=== PATIENT | male | born 1970 | race Caucasian/White ===

== ENCOUNTER 2018-11-23 15:59 | Outpatient (REF) | payer MEDICARE, SELFPAY ==
[2018-11-23 15:33] LABS: Anion Gap 11.2 mmol/L (3-11); BUN 14 mg/dL (7-18); CO2 27.8 mmol/L (21.0-32.0); CREATININE 1.04 mg/dL (0.70-1.30); Calculated LDL 80 mg/dL; Chloride 103 mmol/L (98-107); Cholesterol 158 mg/dL (50-200); Glucose 163 mg/dL (70-100); HDL Cholesterol 36 mg/dL (40-60); Potassium 4.3 mmol/L (3.5-5.1); Sodium 142 mmol/L (136-145); Triglyceride 212 mg/dL (30-150)
[2018-11-23 19:25] LABS: Hemoglobin A1C 7.1 % (4.5-6.2)
== END 2018-11-23 16:19 ==
LOC: NCHCN 15:59
PROVIDERS: PCP Nurse Practitioner Family; Visit Provider Nurse Practitioner Family
DX: E11.9 Type 2 diabetes mellitus without complications (principal); E78.2 Mixed hyperlipidemia
CPT/HCPCS: 80048; 80061; 83721; 83036

== ENCOUNTER 2021-12-08 11:36 | Inpatient (IN) | payer MEDICARE, MEDICAID, SELFPAY ==
[2021-12-08] VITALS (55 sets, daily range): BP systolic 122–154; BP diastolic 73–92; PULSE 92–118; RESP 17–28; TEMP 36.7; O2SAT 95–97
--- NOTE | 2021-12-08 11:46 | W.ED.GENAD ---
Discharge Plan Disposition Patient Disposition: [facility] INPATIENT Condition: Stable Discharge Details Chief Complaint: PsychEval Clinical Impression: Diabetic ketoacidosis associated with type 2 diabetes mellitus Admit Date/Time: 12/08/21 15:17 Admit Provider: Sylvester Newberry Attending Provider: Sylvester Newberry Primary Care Provider: Katy Brooks ED Provider: Farrukh Washington Medical Decision Making 51-year-old male brought by EMS after director of business development called for evaluation. He has had decades of auditory and visual hallucinations. He states he has been taking his Abilify and Valium. He told the director of business development the hallucinations became so bad he wished to have an evaluation. Upon arrival he does seem to be responding to internal stimuli. He is not a danger to himself or others. Medical screening examination including laboratory analysis performed patient given small aliquot of ativan. Patient is a diabetic and by report has not been taking his medications as he should. His glucose is 640 with anion gap of 23. BUN 37 and creatinine 2.3. Consistent with DKA. Patient IV access established, insulin and fluids initiated. Patient will require admission to the ICU. Lab Data Lab results reviewed: Yes I reviewed the patient's lab results. Labs: Laboratory Results - last 24 hr 12/08/21 12/08/21 12/08/21 12:50 12:50 12:50 WBC 13.81 H RBC 5.46 Hgb 17.2 Hct 47.5 MCV 87 MCH 31.5 MCHC 36.2 H RDW 11.6 L Plt Count 233 MPV 9.7 Immature Gran % 0.4 Neutrophils % 86.4 Lymphocytes % 3.5 Monocytes % 9.3 Eosinophils % 0.1 Basophils % 0.3 Nucleated RBC % 0.0 Absolute Neutrophils 11.93 H Absolute Lymphocytes 0.48 L Absolute Monocytes 1.28 H Absolute Eosinophils 0.01 Absolute Basophils 0.04 Sodium 125 L Potassium 5.3 H Chloride 91 L Carbon Dioxide 10.9 L Anion Gap 23.1 H BUN 37 H Creatinine 2.3 H Est GFR (CKD-EPI 2020) 33.75 Glucose 640 H* Calcium 9.1 Total Bilirubin 0.9 AST 16 ALT 20 Alkaline Phosphatase 100 Total Protein 8.5 H Albumin 3.9 TSH 0.78 Salicylates 4.1 Acetaminophen < 2 Ethyl Alcohol < 3.0 HPI General Mode of arrival: EMS. Date/Time Provider Initiated Documentation: 12/08/21 11:41. Limitations to Documentation: no limitations. Information obtained by: patient and EMS. History of Present Illness 51 year old M presents to the emergency department with the chief complaint of Anxiety, longstanding hallucinations, referred by director of business development, described as mild, and is localized to the head. Patient started experiencing this year(s) and it has been intermittent. No relieving factors improve symptom(s), No exacerbating factors reported . Patient notes other (No thoughts of harming himself or others). Patient did receive the following treatments prior to arrival, none Related Data Home Medications Medication Instructions Recorded Confirmed aripiprazole 30 mg tablet 1 tab PO DAILY 12/08/21 12/08/21 cariprazine 6 mg capsule (Vraylar) 1 cap PO HS 12/08/21 12/08/21 diazepam 5 mg tablet tab 12/08/21 12/08/21 Review of Systems Narrative: 6 systems reviewed and otherwise - PFSH All Active Problems (Updated 12/08/21 @ 19:01 by Farrukh Washington MD) DVT prophylaxis (Acute) Dehydration (Acute) Acute kidney injury (nontraumatic) (Acute) Diabetic ketoacidosis associated with type 2 diabetes mellitus (Acute) Schizophrenia (Chronic) Social History Smoking/Tobacco Use Status: Never Smoking risk assessment performed?: Yes Substance use type: does not use Additional Social history: pt not speaking at this time Exam Narrative Exam Narrative: GEN: awake, alert, Pleasant, interactive. HEAD: Normocephalic, atraumatic ENT: Mucous membranes moist, oropharynx unremarkable, External ear exam unremarkable EYES: PERRL, EOMI NECK: Full ROM, no [place], no menigismus CHEST/RESP: Nontender, clear to auscultation bilateral, no wheeze/rhonchi/rales CARDIOVASCULAR: RRR, no murmur, rub oj. 2+ Rad pulse bilateral ABDOMEN: Soft, nontender, no mass. +Bowel sounds EXT: Full ROM, no edema, no rash Neuro: Grossly normal neurologic exam, conversant, interactive. Psych: Speech fluent, affect flat
[2021-12-08] MEDS: LORazepam 1 MG TAB PO (12:03)
[2021-12-08 12:54] LABS: Abs Immature Grans 0.06 10^3/uL (0.0-0.06); Absolute Basophil Count 0.04 10^3/uL (0.0-0.2); Absolute Eosinophil Count 0.01 10^3/uL (0.0-0.7); Absolute Lymphocyte Count 0.48 10^3/uL (1.2-3.4); Absolute Neutrophil Count 11.93 10^3/uL (1.2-6.7); Basophils % 0.3; Eosinophils % 0.1; HCT 47.5 % (40.0-50.0); HGB 17.2 g/dL (13.5-17.5); Immature Grans % 0.4; Lymphocytes % 3.5; MCH 31.5 pg (27.0-33.0); MCHC 36.2 % (32.0-36.0); MCV 87 fL (80-95); MPV 9.7 fL (8.0-11.0); Monocytes % 9.3; Neutrophils % 86.4; Platelet Count 233 10^3/uL (130-400); RBC 5.46 10^6/uL (4.36-5.78); RDW 11.6 % (11.8-14.1); RDW-SD 37.1 fL; WBC 13.81 10^3/uL (4.4-10.8)
[2021-12-08 12:56] LABS: Absolute Monocyte Count 1.28 10^3/uL (0.1-0.8)
[2021-12-08 13:17] LABS: ALT 20 U/L (16-63); AST 16 U/L (15-37); Albumin 3.9 g/dL (3.4-5.0); Alkaline Phosphatase 100 U/L (46-116); Anion Gap 23.1 mmol/L (3-11); BUN 37 mg/dL (7-18); Bilirubin, Total 0.9 mg/dL (0.2-1.0); CO2 10.9 mmol/L (21.0-32.0); CREATININE 2.3 mg/dL (0.70-1.30); Calcium 9.1 mg/dL (8.5-10.1); Chloride 91 mmol/L (98-107); Estimated GFR 33.75 (mL/min/1.73m2); Potassium 5.3 mmol/L (3.5-5.1); Sodium 125 mmol/L (136-145); TSH (W/Ref FT4) 0.78 uIU/mL (0.36-3.74); Total Protein 8.5 g/dL (6.4-8.2)
[2021-12-08 13:19] LABS: ETHANOL BLOOD < 3.0 mg/dL (<10)
[2021-12-08 13:20] LABS: Glucose 640 mg/dL (74-106)
[2021-12-08 13:25] LABS: Acetaminophen < 2 ug/mL (10-30); Salicylate 4.1 mg/dL (<2.8)
--- NOTE | 2021-12-08 13:30 | RT.EKG_ITS ---
APPROVED REPORT Exam: Resting ECG Reason for Exam: hyperkalemia Patient Location: E HR:114 bpm ECG Measurements Heart Rate 114 AXIS SD 161 P 70 QRSd 92 QRS -65 QT 341 T 30 QTc 471 Conclusion Sinus tachycardia...rate> 99 Probable left atrial enlargement...P >50mS, <-0.10mV V1 Left anterior fascicular block...axis(240,-40), init forces inf
[2021-12-08] MEDS: Normal Saline 1,000 ML 999 ML IV (14:35)
[2021-12-08] MEDS: INSULIN REGULAR IN 0.9 % NACL 100 UNIT/100 ML BAG IV (14:52)
[2021-12-08] MEDS: Normal Saline 1,000 ML 1000 ML IV (15:25)
[2021-12-08 16:15] LABS: Source Nasal/Nares
[2021-12-08 16:20] LABS: Bilirubin Small (Negative); Blood Small (Negative); Clarity Clear (Clear); Glucose 500 mg/dL (Negative); Ketones >=160 mg/dL (Negative); Leukocyte Esterase Negative (Negative); Nitrite Negative (Negative); Specific Gravity 1.025 (1.005-1.025); Urobilinogen 0.2 EU/dL (Up TO 0.2); pH 5.5 (5-8)
[2021-12-08 16:26] LABS: Magnesium 2.2 mg/dL (1.8-2.4); PHOSPHORUS 4.5 mg/dL (2.6-4.7)
[2021-12-08 16:34] LABS: *AMPHETAMINES SCREEN URINE Negative (Negative); *BARBITURATES SCREEN URINE Negative (Negative); *BENZODIAZEPINES SCREEN URINE Positive (Negative); Cannabinoids THC Negative (Negative); Cocaine Screen,Urine Negative (Negative); METHADONE URINE SCREEN Negative (Negative); OPIATES URINE SCREEN Negative (Negative)
[2021-12-08 16:35] LABS: Tricyclic Antidepressants Negative (Negative)
[2021-12-08 16:36] LABS: Bacteria Negative HPF (Negative); C & S Indicated? No; Casts 10-20 Hyaline LPF (Negative); Crystals Negative HPF (Negative); Epithelial Cells Negative HPF (Negative); Mucus Negative (Negative); RBC 0-2 HPF (0-2); WBC Negative HPF (0-5)
[2021-12-08 16:47] LABS: COVID-19 PCR Negative (Negative)
--- NOTE | 2021-12-08 18:01 | W.PM.HP.N ---
Date of service: 12/08/21 Time of Service: 18:01 Assessment and Plan Assessment and plan (1) Diabetic ketoacidosis associated with type 2 diabetes mellitus: Status: Acute Assessment and plan: aggressive hydration, potassium replacement, iv insulin per Mchenry protocol; hourly monitoring of his glucose and monitor his BMP every 2 hours, monitor magnesium and phosphorus. check glycohemoglobin A1c in the a.m. Get more info from his PCP in the morning. No EKG or troponin were done. I will check these to be sure that he has not had ischemic event. Critical care time spent interviewing and examining the patient, reviewing studies, discussing case with patient's nurse and consulting physicians was 45 minutes (2) Acute kidney injury (nontraumatic): Status: Acute Assessment and plan: secondary to DKA, dehydration, monitor urine output and repeat serial BMP. If renal function not improving then check US (3) Dehydration: Status: Acute Assessment and plan: iv fluids as above (4) Schizophrenia: Status: Chronic Assessment and plan: resume his Abilify and his Vraylar; consider psychiatric consult (5) DVT prophylaxis: Status: Acute Assessment and plan: lovenox 40 mg SC daily History of Present Illness History of Present Illness Chief Complaint: DKA and psychosis Narrative: 51-year-old white male with history of schizophrenia who was treated with Abilify and Vraylar who was referred to emergency room via EMS after his room attendants called for evaluation. He has had decades of history of auditory visual hallucinations but his hallucinations were getting so bad that his room attendants felt he needed emergency evaluation. Upon arrival emergency department he was responding to internal stimulation. He was not presenting any danger to himself or to those around him. Medical screening was performed because the patient be given a small dose of Ativan. Laboratory evaluation showed him to be in DKA with a glucose of 640 anion gap of 23 along with acute kidney injury with a BUN of 37 creatinine 2.3. He was started on IV fluids and insulin drip is now admitted to the intensive care unit for treatment of DKA. I am unable to get a medical history out of the patient as he gives me that 1000 yard stare and stutters. Initially when I asked him if he takes insulin he said he did not know but that he later said he does not take any insulin for his diabetes mellitus. When asked if he takes any psychiatric medications for bipolar disorder or schizophrenia or depression he was unable to answer me. This started to say something that he will stutter that he will stop talking and just stare at me. He has his guitar on his bed with him he does admit that he likes to play songs but could not name any songs to me. My started do a review of systems he started tell me that [employer] has created a satellite system to invade people's minds and take over their mind control and that there are invisible robots trying to kill people. Review of Systems Unobtainable due to mental condition [facility] All Active Problems (Updated 12/08/21 @ 18:42 by Sylvester Newberry MD) DVT prophylaxis (Acute) Dehydration (Acute) Acute kidney injury (nontraumatic) (Acute) Diabetic ketoacidosis associated with type 2 diabetes mellitus (Acute) Schizophrenia (Chronic) Social History Smoking/Tobacco Use Status: Never Smoking risk assessment performed?: Yes Substance use type: does not use Additional Social history: pt not speaking at this time Meds Allergies and Home Medications Home Medications Medication Instructions Recorded Confirmed Type aripiprazole 30 mg tablet 1 tab PO DAILY 12/08/21 12/08/21 History cariprazine 6 mg capsule (Vraylar) 1 cap PO HS 12/08/21 12/08/21 History diazepam 5 mg tablet tab 12/08/21 12/08/21 History Exam Narrative Exam Narrative: Obese bearded longhaired white male with graying hair. He is sitting up in bed he appears to be in no acute respiratory distress he is alert but is not oriented to place time or circumstance. HEENT is remarkable for dry mucous membranes. Oropharynx is noninjected no exudate no thrush, teeth fair repair Neck supple, nontender, no JVD, normal carotid pulses Lungs: clear Heart: tachycardia, no murmur or rub Abdomen: obese, soft, nontender, normal bowel sound Extremities: patient has some abrasions over the 2nd to the 4th MCP joints, they reddened but no drainage; no other open wounds Neuro: he is alert and oriented only to his name; can not state where he is at or why he was sent here. he is delusional. no focal or motor deficits, no facial asymmetry and no dysarthric speech, full EOMI Results Labs Result diagrams: 12/08/21 12:50 12/08/21 12:50 Labs: Laboratory Results - last 24 hr 12/08/21 12/08/21 12/08/21 12:50 12:50 12:50 WBC 13.81 H RBC 5.46 Hgb 17.2 Hct 47.5 MCV 87 MCH 31.5 MCHC 36.2 H RDW 11.6 L Plt Count 233 MPV 9.7 Immature Gran % 0.4 Neutrophils % 86.4 Lymphocytes % 3.5 Monocytes % 9.3 Eosinophils % 0.1 Basophils % 0.3 Nucleated RBC % 0.0 Absolute Neutrophils 11.93 H Absolute Lymphocytes 0.48 L Absolute Monocytes 1.28 H Absolute Eosinophils 0.01 Absolute Basophils 0.04 Sodium 125 L Potassium 5.3 H Chloride 91 L Carbon Dioxide 10.9 L Anion Gap 23.1 H BUN 37 H Creatinine 2.3 H Est GFR (CKD-EPI 2020) 33.75 Glucose 640 H* Calcium 9.1 Phosphorus Magnesium Total Bilirubin 0.9 AST 16 ALT 20 Alkaline Phosphatase 100 Total Protein 8.5 H Albumin 3.9 TSH 0.78 Urine Color Urine Clarity Urine pH Ur Specific [place] Urine Protein Urine Ketones Urine Blood Urine Nitrite Urine Bilirubin Urine Urobilinogen Ur Leukocyte Esterase Urine RBC Urine WBC Ur Epithelial Cells Urine Crystals Urine Bacteria Urine Casts Urine Mucus Ur Culture Indicated? Urine Glucose Salicylates 4.1 Urine Opiates Screen Urine Methadone Screen Acetaminophen < 2 Ur Barbiturates Screen Ur Tricyclics Screen Ur Amphetamines Screen U Benzodiazepines Scrn Urine Cocaine Screen Ur THC Screen Ethyl Alcohol < 3.0 COVID-19 Source SARS-CoV-2 (PCR) 12/08/21 12/08/21 12/08/21 16:00 16:00 16:00 WBC RBC Hgb Hct MCV MCH MCHC RDW Plt Count MPV Immature Gran % Neutrophils % Lymphocytes % Monocytes % Eosinophils % Basophils % Nucleated RBC % Absolute Neutrophils Absolute Lymphocytes Absolute Monocytes Absolute Eosinophils Absolute Basophils Sodium Potassium Chloride Carbon Dioxide Anion Gap BUN Creatinine Est GFR (CKD-EPI 2020) Glucose Calcium Phosphorus 4.5 Magnesium 2.2 Total Bilirubin AST ALT Alkaline Phosphatase Total Protein Albumin TSH Urine Color Yellow Urine Clarity Clear Urine pH 5.5 Ur Specific [place] 1.025 Urine Protein Trace H Urine Ketones >=160 H Urine Blood Small H Urine Nitrite Negative Urine Bilirubin Small H Urine Urobilinogen 0.2 Ur Leukocyte Esterase Negative Urine RBC 0-2 Urine WBC Negative Ur Epithelial Cells Negative Urine Crystals Negative Urine Bacteria Negative Urine Casts 10-20 Hyaline Urine Mucus Negative Ur Culture Indicated? No Urine Glucose 500 H Salicylates Urine Opiates Screen Negative Urine Methadone Screen Negative Acetaminophen Ur Barbiturates Screen Negative Ur Tricyclics Screen Negative Ur Amphetamines Screen Negative U Benzodiazepines Scrn Positive A Urine Cocaine Screen Negative Ur THC Screen Negative Ethyl Alcohol COVID-19 Source SARS-CoV-2 (PCR) 12/08/21 16:00 WBC RBC Hgb Hct MCV MCH MCHC RDW Plt Count MPV Immature Gran % Neutrophils % Lymphocytes % Monocytes % Eosinophils % Basophils % Nucleated RBC % Absolute Neutrophils Absolute Lymphocytes Absolute Monocytes Absolute Eosinophils Absolute Basophils Sodium Potassium Chloride Carbon Dioxide Anion Gap BUN Creatinine Est GFR (CKD-EPI 2020) Glucose Calcium Phosphorus Magnesium Total Bilirubin AST ALT Alkaline Phosphatase Total Protein Albumin TSH Urine Color Urine Clarity Urine pH Ur Specific [place] Urine Protein Urine Ketones Urine Blood Urine Nitrite Urine Bilirubin Urine Urobilinogen Ur Leukocyte Esterase Urine RBC Urine WBC Ur Epithelial Cells Urine Crystals Urine Bacteria Urine Casts Urine Mucus Ur Culture Indicated? Urine Glucose Salicylates Urine Opiates Screen Urine Methadone Screen Acetaminophen Ur Barbiturates Screen Ur Tricyclics Screen Ur Amphetamines Screen U Benzodiazepines Scrn Urine Cocaine Screen Ur THC Screen Ethyl Alcohol COVID-19 Source Nasal/Nares SARS-CoV-2 (PCR) Negative Last Vital Signs Temp 36.7 C 12/08/21 17:16 Pulse 114 H 12/08/21 17:16 Pulse Ox 97 12/08/21 17:16
[2021-12-08 18:31] LABS: Anion Gap 18.5 mmol/L (3-11); BUN 32 mg/dL (7-18); CO2 15.5 mmol/L (21.0-32.0); CREATININE 1.8 mg/dL (0.70-1.30); Calcium 8.3 mg/dL (8.5-10.1); Chloride 98 mmol/L (98-107); Estimated GFR 45.29 (mL/min/1.73m2); Glucose 407 mg/dL (74-106); Potassium 4.4 mmol/L (3.5-5.1); Sodium 132 mmol/L (136-145); Troponin I < 50 ng/L (<or=60)
[2021-12-08] MEDS: POTASSIUM CHLORIDE/0.9% NACL 1,000 ML 100 MEQ IV (18:37)
[2021-12-08] MEDS: Enoxaparin 40 MG/0.4 ML SYR SC (19:41)
[2021-12-08 20:17] LABS: Anion Gap 16.5 mmol/L (3-11); BUN 33 mg/dL (7-18); CO2 17.5 mmol/L (21.0-32.0); CREATININE 1.8 mg/dL (0.70-1.30); Calcium 8.4 mg/dL (8.5-10.1); Chloride 99 mmol/L (98-107); Estimated GFR 45.29 (mL/min/1.73m2); Glucose 341 mg/dL (74-106); Potassium 4.3 mmol/L (3.5-5.1); Sodium 133 mmol/L (136-145)
--- NOTE | 2021-12-08 20:50 | NUR.NOTE ---
pt states im not taking htat because im not bipolar when asked about having cariprazing brought in from homeNursing Note:
[2021-12-08 22:04] LABS: Anion Gap 16.2 mmol/L (3-11); BUN 34 mg/dL (7-18); CO2 15.8 mmol/L (21.0-32.0); CREATININE 1.7 mg/dL (0.70-1.30); Calcium 8.3 mg/dL (8.5-10.1); Chloride 101 mmol/L (98-107); Estimated GFR 48.51 (mL/min/1.73m2); Glucose 324 mg/dL (74-106); Potassium 4.1 mmol/L (3.5-5.1); Sodium 133 mmol/L (136-145)
[2021-12-08] MEDS: Bacitracin 1 PACKET TP (22:27)
[2021-12-08] MEDS: POTASSIUM CHLORIDE 20 MEQ/100 ML BAG 50 MEQ IVPB (22:50)
[2021-12-09] VITALS (26 sets, daily range): BP systolic 108–148; BP diastolic 59–96; PULSE 65–107; RESP 13–28; TEMP 36.2–36.8; O2SAT 95–98
[2021-12-09 00:31] LABS: Anion Gap 12.8 mmol/L (3-11); BUN 32 mg/dL (7-18); CO2 20.2 mmol/L (21.0-32.0); CREATININE 1.6 mg/dL (0.70-1.30); Calcium 8.3 mg/dL (8.5-10.1); Chloride 102 mmol/L (98-107); Estimated GFR 52.17 (mL/min/1.73m2); Glucose 175 mg/dL (74-106); Sodium 135 mmol/L (136-145)
[2021-12-09 02:46] LABS: Anion Gap 13.8 mmol/L (3-11); BUN 31 mg/dL (7-18); CO2 18.2 mmol/L (21.0-32.0); CREATININE 1.4 mg/dL (0.70-1.30); Calcium 8.2 mg/dL (8.5-10.1); Chloride 102 mmol/L (98-107); Estimated GFR 61.23 (mL/min/1.73m2); Glucose 223 mg/dL (74-106); Potassium 3.8 mmol/L (3.5-5.1); Sodium 134 mmol/L (136-145)
[2021-12-09] MEDS: POTASSIUM CHLORIDE 20 MEQ/100 ML BAG 50 MEQ IVPB (04:20)
[2021-12-09 07:10] LABS: Abs Immature Grans 0.01 10^3/uL (0.0-0.06); Absolute Basophil Count 0.03 10^3/uL (0.0-0.2); Absolute Eosinophil Count 0.11 10^3/uL (0.0-0.7); Absolute Lymphocyte Count 2.17 10^3/uL (1.2-3.4); Absolute Neutrophil Count 4.41 10^3/uL (1.2-6.7); Basophils % 0.4; Eosinophils % 1.4; HCT 39.3 % (40.0-50.0); Immature Grans % 0.1; Lymphocytes % 28.4; MCH 31.6 pg (27.0-33.0); MCHC 36.4 % (32.0-36.0); MCV 87 fL (80-95); Monocytes % 11.8; Neutrophils % 57.9; Platelet Count 208 10^3/uL (130-400); RBC 4.53 10^6/uL (4.36-5.78); RDW 11.4 % (11.8-14.1); RDW-SD 36.1 fL; WBC 7.63 10^3/uL (4.4-10.8)
[2021-12-09 07:19] LABS: HGB 14.3 g/dL (13.5-17.5)
[2021-12-09 07:26] LABS: Hemoglobin A1C 11.8 % (<5.7)
[2021-12-09 07:31] LABS: ALT 16 U/L (16-63); AST 15 U/L (15-37); Albumin 3.1 g/dL (3.4-5.0); Alkaline Phosphatase 76 U/L (46-116); Anion Gap 10.3 mmol/L (3-11); BUN 27 mg/dL (7-18); Bilirubin, Total 0.4 mg/dL (0.2-1.0); CO2 22.7 mmol/L (21.0-32.0); CREATININE 1.5 mg/dL (0.70-1.30); Calcium 8.5 mg/dL (8.5-10.1); Chloride 107 mmol/L (98-107); Estimated GFR 56.37 (mL/min/1.73m2); Glucose 74 mg/dL (74-106); PHOSPHORUS 3.5 mg/dL (2.6-4.7); Potassium 3.7 mmol/L (3.5-5.1); Sodium 140 mmol/L (136-145); Total Protein 6.6 g/dL (6.4-8.2)
[2021-12-09] MEDS: Insulin Glargine 300 UNITS/3 ML PEN 15 UNITS SC (09:48)
--- NOTE | 2021-12-09 10:06 | PGE_ITS ---
Date of Service Date of service: 12/09/21 Time of Service: 08:20 Assessment and Plan Assessment and plan (1) Diabetic ketoacidosis associated with type 2 diabetes mellitus: Status: Acute Assessment and plan: The patient states he is not on insulin at home. Based on his extrapolated insulin requirement based on the insulin gtt, he received 15 units of lantus this am. Will recheck his labs at 11 am to ensure his AG has not reexpanded given that insulin drip had to be shut off earlier. Will keep in ICU for now. Continue IVF. (2) Acute kidney injury (nontraumatic): Status: Acute Assessment and plan: due to DKA and dehydration. Continue IVF and monitor UOP. (3) Dehydration: Status: Acute Assessment and plan: In setting of DKA. As above. (4) Schizophrenia: Status: Chronic Assessment and plan: The patient refuses Abilify and vraylar, stating he does not take these at home. Per our pharmacy review, he, in fact, had these prescriptions picked up on 11/11/21. Deusional on admission. Mental health is consulted. (5) DVT prophylaxis: Status: Acute Assessment and plan: lovenox 40 mg SC daily (6) Discharge planning issues: Status: Acute Assessment and plan: Keep in ICU. DNR/DNI. Total Critical Care Time 35 minutes. Subjective Subjective Interval history since last seen: Erec (as he called himself) states that he is feeling ok. He reports pain in his atlas which is chronic. Denies headache, dizziness, chest pain, shortness of breath, nausea. Insulin drip was shut off at 8 am this am (before long acting insulin given) due to low BG. The patient did tolerate his breakfast. He states he is not on insulin at home. Refused his psych meds - states he does not think he takes them at home. Otherwise, cooperative. Exam Narrative Exam Narrative: General: Pleasant obese male who is slightly slow to respond to questions, A&Ox3, AND HEENT: EOMI, MMM Heart: RRR, no m/r/g Lungs: Diminished breath sounds at B bases Abdomen: soft, nontender, nondistended Extremities: no edema BLEs. Objective Last Vital Signs Temp 36.2 C L 12/09/21 07:30 Pulse 101 H 12/09/21 09:00 Resp 19 12/09/21 09:00 BP 126/78 12/09/21 09:00 Pulse Ox 95 12/08/21 17:30 Laboratory Results - last 24 hr 12/08/21 12/08/21 12/08/21 12:50 12:50 12:50 WBC 13.81 H RBC 5.46 Hgb 17.2 Hct 47.5 MCV 87 MCH 31.5 MCHC 36.2 H RDW 11.6 L Plt Count 233 MPV 9.7 Immature Gran % 0.4 Neutrophils % 86.4 Lymphocytes % 3.5 Monocytes % 9.3 Eosinophils % 0.1 Basophils % 0.3 Nucleated RBC % 0.0 Absolute Neutrophils 11.93 H Absolute Lymphocytes 0.48 L Absolute Monocytes 1.28 H Absolute Eosinophils 0.01 Absolute Basophils 0.04 Sodium 125 L Potassium 5.3 H Chloride 91 L Carbon Dioxide 10.9 L Anion Gap 23.1 H BUN 37 H Creatinine 2.3 H Est GFR (CKD-EPI 2020) 33.75 Glucose 640 H* Hemoglobin A1c Calcium 9.1 Phosphorus Magnesium Total Bilirubin 0.9 AST 16 ALT 20 Alkaline Phosphatase 100 Troponin I Total Protein 8.5 H Albumin 3.9 TSH 0.78 Urine Color Urine Clarity Urine pH Ur Specific [place] Urine Protein Urine Ketones Urine Blood Urine Nitrite Urine Bilirubin Urine Urobilinogen Ur Leukocyte Esterase Urine RBC Urine WBC Ur Epithelial Cells Urine Crystals Urine Bacteria Urine Casts Urine Mucus Ur Culture Indicated? Urine Glucose Salicylates 4.1 Urine Opiates Screen Urine Methadone Screen Acetaminophen < 2 Ur Barbiturates Screen Ur Tricyclics Screen Ur Amphetamines Screen U Benzodiazepines Scrn Urine Cocaine Screen Ur THC Screen Ethyl Alcohol < 3.0 COVID-19 Source SARS-CoV-2 (PCR) 12/08/21 12/08/21 12/08/21 16:00 16:00 16:00 WBC RBC Hgb Hct MCV MCH MCHC RDW Plt Count MPV Immature Gran % Neutrophils % Lymphocytes % Monocytes % Eosinophils % Basophils % Nucleated RBC % Absolute Neutrophils Absolute Lymphocytes Absolute Monocytes Absolute Eosinophils Absolute Basophils Sodium Potassium Chloride Carbon Dioxide Anion Gap BUN Creatinine Est GFR (CKD-EPI 2020) Glucose Hemoglobin A1c Calcium Phosphorus 4.5 Magnesium 2.2 Total Bilirubin AST ALT Alkaline Phosphatase Troponin I Total Protein Albumin TSH Urine Color Yellow Urine Clarity Clear Urine pH 5.5 Ur Specific [place] 1.025 Urine Protein Trace H Urine Ketones >=160 H Urine Blood Small H Urine Nitrite Negative Urine Bilirubin Small H Urine Urobilinogen 0.2 Ur Leukocyte Esterase Negative Urine RBC 0-2 Urine WBC Negative Ur Epithelial Cells Negative Urine Crystals Negative Urine Bacteria Negative Urine Casts 10-20 Hyaline Urine Mucus Negative Ur Culture Indicated? No Urine Glucose 500 H Salicylates Urine Opiates Screen Negative Urine Methadone Screen Negative Acetaminophen Ur Barbiturates Screen Negative Ur Tricyclics Screen Negative Ur Amphetamines Screen Negative U Benzodiazepines Scrn Positive A Urine Cocaine Screen Negative Ur THC Screen Negative Ethyl Alcohol COVID-19 Source SARS-CoV-2 (PCR) 12/08/21 12/08/21 12/08/21 16:00 17:35 19:42 WBC RBC Hgb Hct MCV MCH MCHC RDW Plt Count MPV Immature Gran % Neutrophils % Lymphocytes % Monocytes % Eosinophils % Basophils % Nucleated RBC % Absolute Neutrophils Absolute Lymphocytes Absolute Monocytes Absolute Eosinophils Absolute Basophils Sodium 132 L 133 L Potassium 4.4 4.3 Chloride 98 99 Carbon Dioxide 15.5 L 17.5 L Anion Gap 18.5 H 16.5 H BUN 32 H 33 H Creatinine 1.8 H 1.8 H Est GFR (CKD-EPI 2020) 45.29 45.29 Glucose 407 H 341 H Hemoglobin A1c Calcium 8.3 L 8.4 L Phosphorus Magnesium Total Bilirubin AST ALT Alkaline Phosphatase Troponin I < 50 Total Protein Albumin TSH Urine Color Urine Clarity Urine pH Ur Specific [place] Urine Protein Urine Ketones Urine Blood Urine Nitrite Urine Bilirubin Urine Urobilinogen Ur Leukocyte Esterase Urine RBC Urine WBC Ur Epithelial Cells Urine Crystals Urine Bacteria Urine Casts Urine Mucus Ur Culture Indicated? Urine Glucose Salicylates Urine Opiates Screen Urine Methadone Screen Acetaminophen Ur Barbiturates Screen Ur Tricyclics Screen Ur Amphetamines Screen U Benzodiazepines Scrn Urine Cocaine Screen Ur THC Screen Ethyl Alcohol COVID-19 Source Nasal/Nares SARS-CoV-2 (PCR) Negative 12/08/21 12/09/21 12/09/21 21:42 00:07 02:30 WBC RBC Hgb Hct MCV MCH MCHC RDW Plt Count MPV Immature Gran % Neutrophils % Lymphocytes % Monocytes % Eosinophils % Basophils % Nucleated RBC % Absolute Neutrophils Absolute Lymphocytes Absolute Monocytes Absolute Eosinophils Absolute Basophils Sodium 133 L 135 L 134 L Potassium 4.1 4.0 3.8 Chloride 101 102 102 Carbon Dioxide 15.8 L 20.2 L 18.2 L Anion Gap 16.2 H 12.8 H 13.8 H BUN 34 H 32 H 31 H Creatinine 1.7 H 1.6 H 1.4 H Est GFR (CKD-EPI 2020) 48.51 52.17 61.23 Glucose 324 H 175 H 223 H Hemoglobin A1c Calcium 8.3 L 8.3 L 8.2 L Phosphorus Magnesium Total Bilirubin AST ALT Alkaline Phosphatase Troponin I Total Protein Albumin TSH Urine Color Urine Clarity Urine pH Ur Specific [place] Urine Protein Urine Ketones Urine Blood Urine Nitrite Urine Bilirubin Urine Urobilinogen Ur Leukocyte Esterase Urine RBC Urine WBC Ur Epithelial Cells Urine Crystals Urine Bacteria Urine Casts Urine Mucus Ur Culture Indicated? Urine Glucose Salicylates Urine Opiates Screen Urine Methadone Screen Acetaminophen Ur Barbiturates Screen Ur Tricyclics Screen Ur Amphetamines Screen U Benzodiazepines Scrn Urine Cocaine Screen Ur THC Screen Ethyl Alcohol COVID-19 Source SARS-CoV-2 (PCR) 12/09/21 12/09/21 12/09/21 07:00 07:00 07:00 WBC 7.63 RBC 4.53 Hgb 14.3 D Hct 39.3 L MCV 87 MCH 31.6 MCHC 36.4 H RDW 11.4 L Plt Count 208 MPV 9.0 Immature Gran % 0.1 Neutrophils % 57.9 Lymphocytes % 28.4 Monocytes % 11.8 Eosinophils % 1.4 Basophils % 0.4 Nucleated RBC % 0.0 Absolute Neutrophils 4.41 Absolute Lymphocytes 2.17 Absolute Monocytes 0.90 H Absolute Eosinophils 0.11 Absolute Basophils 0.03 Sodium 140 Potassium 3.7 Chloride 107 Carbon Dioxide 22.7 Anion Gap 10.3 BUN 27 H Creatinine 1.5 H Est GFR (CKD-EPI 2020) 56.37 Glucose 74 Hemoglobin A1c Calcium 8.5 Phosphorus 3.5 Magnesium 2.0 Total Bilirubin 0.4 AST 15 ALT 16 Alkaline Phosphatase 76 Troponin I Total Protein 6.6 Albumin 3.1 L TSH Urine Color Urine Clarity Urine pH Ur Specific [place] Urine Protein Urine Ketones Urine Blood Urine Nitrite Urine Bilirubin Urine Urobilinogen Ur Leukocyte Esterase Urine RBC Urine WBC Ur Epithelial Cells Urine Crystals Urine Bacteria Urine Casts Urine Mucus Ur Culture Indicated? Urine Glucose Salicylates Urine Opiates Screen Urine Methadone Screen Acetaminophen Ur Barbiturates Screen Ur Tricyclics Screen Ur Amphetamines Screen U Benzodiazepines Scrn Urine Cocaine Screen Ur THC Screen Ethyl Alcohol COVID-19 Source SARS-CoV-2 (PCR) 12/09/21 07:00 WBC RBC Hgb Hct MCV MCH MCHC RDW Plt Count MPV Immature Gran % Neutrophils % Lymphocytes % Monocytes % Eosinophils % Basophils % Nucleated RBC % Absolute Neutrophils Absolute Lymphocytes Absolute Monocytes Absolute Eosinophils Absolute Basophils Sodium Potassium Chloride Carbon Dioxide Anion Gap BUN Creatinine Est GFR (CKD-EPI 2020) Glucose Hemoglobin A1c 11.8 H Calcium Phosphorus Magnesium Total Bilirubin AST ALT Alkaline Phosphatase Troponin I Total Protein Albumin TSH Urine Color Urine Clarity Urine pH Ur Specific [place] Urine Protein Urine Ketones Urine Blood Urine Nitrite Urine Bilirubin Urine Urobilinogen Ur Leukocyte Esterase Urine RBC Urine WBC Ur Epithelial Cells Urine Crystals Urine Bacteria Urine Casts Urine Mucus Ur Culture Indicated? Urine Glucose Salicylates Urine Opiates Screen Urine Methadone Screen Acetaminophen Ur Barbiturates Screen Ur Tricyclics Screen Ur Amphetamines Screen U Benzodiazepines Scrn Urine Cocaine Screen Ur THC Screen Ethyl Alcohol COVID-19 Source SARS-CoV-2 (PCR) Multi-Disciplinary Checklist Lines/Tubes CENTRAL LINE: no ARTERIAL LINE: no LARA: no ENDOTRACHEAL TUBE: no ICU Maintenance GLUCOSE 140-180mg/dL: no, NUTRITION AT GOAL: yes PRESSURE ULCER: no RESTRAINTS: no ANTIBIOTICS(if yes, consider Stewardship): No Social Issues FAMILY UPDATED: no, Reason/Intervention: No family listed in the computer PT/OT: no, 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
[2021-12-09 11:14] LABS: BE (Venous) -10 mmol/L (-2-3); HCO3 (Venous) 17 mmol/L (23-28); O2 Sat (Venous) 94 %; TCO2 (Venous) 16 mmol/L (24-29); pCO2 (Venous) 40 mmHg (41-51); pH (Venous) 7.24 (7.31-7.41); pO2 (Venous) 77 mmHg
[2021-12-09 11:28] LABS: Anion Gap 11.3 mmol/L (3-11); BUN 30 mg/dL (7-18); CO2 19.7 mmol/L (21.0-32.0); CREATININE 1.4 mg/dL (0.70-1.30); Calcium 8.3 mg/dL (8.5-10.1); Chloride 104 mmol/L (98-107); Estimated GFR 61.23 (mL/min/1.73m2); Glucose 407 mg/dL (74-106); Magnesium 1.8 mg/dL (1.8-2.4); Potassium 4.6 mmol/L (3.5-5.1); Sodium 135 mmol/L (136-145)
[2021-12-09] MEDS: Insulin Aspart 300 UNITS/3 ML PEN SC ×4 (11:54→22:37)
[2021-12-09] MEDS: Bacitracin 1 PACKET TP ×2 (12:29→19:38)
[2021-12-09] MEDS: Lactated Ringers 1,000 ML 150 ML IV ×2 (12:32→19:10)
[2021-12-09 15:33] LABS: BE (Venous) -6 mmol/L (-2-3); HCO3 (Venous) 20 mmol/L (23-28); O2 Sat (Venous) 62 %; TCO2 (Venous) 18 mmol/L (24-29); pCO2 (Venous) 37 mmHg (41-51); pH (Venous) 7.34 (7.31-7.41); pO2 (Venous) 31 mmHg
[2021-12-09 15:47] LABS: Anion Gap 9.6 mmol/L (3-11); BUN 30 mg/dL (7-18); CO2 21.4 mmol/L (21.0-32.0); CREATININE 1.3 mg/dL (0.70-1.30); Calcium 8.6 mg/dL (8.5-10.1); Chloride 106 mmol/L (98-107); Estimated GFR 66.93 (mL/min/1.73m2); Glucose 222 mg/dL (74-106); Potassium 4.5 mmol/L (3.5-5.1); Sodium 137 mmol/L (136-145)
[2021-12-09] MEDS: Insulin Glargine 300 UNITS/3 ML PEN SC (16:28)
--- NOTE | 2021-12-09 16:37 | NUR.NOTE ---
Nursing Note: This nurse went into patient's room to give him his SC insulin. Patient was staring at the wall and would not allow this nurse to administer the insulin; he put the index finger up in the air (as if to say wait one minute). A few minutes later he stated he had the power to remove the bad parts from the medicine and diseases. Then he allowed this nurse to administer the insulin medications. Dr. Valles was notified. When patient was asked if he took his Abilify and his Vraylar, patient stated he did not take them because of the commercials on TV that advertizes, the bad side effects these medications can cause.
[2021-12-09 20:40] LABS: Anion Gap 10.4 mmol/L (3-11); BUN 28 mg/dL (7-18); CO2 22.6 mmol/L (21.0-32.0); CREATININE 1.3 mg/dL (0.70-1.30); Calcium 8.6 mg/dL (8.5-10.1); Chloride 103 mmol/L (98-107); Estimated GFR 66.93 (mL/min/1.73m2); Glucose 332 mg/dL (74-106); Magnesium 1.8 mg/dL (1.8-2.4); Potassium 4.4 mmol/L (3.5-5.1); Sodium 136 mmol/L (136-145)
[2021-12-09] MEDS: LORazepam 20 MG/10 ML VIAL IVP (23:58)
[2021-12-10] VITALS (98 sets, daily range): BP systolic 95–164; BP diastolic 51–98; PULSE 84–115; RESP 14–33; TEMP 36.2–36.7; O2SAT 50–100
[2021-12-10] MEDS: Lactated Ringers 1,000 ML 150 ML IV (01:36)
[2021-12-10 06:31] LABS: Abs Immature Grans 0.02 10^3/uL (0.0-0.06); Absolute Basophil Count 0.04 10^3/uL (0.0-0.2); Absolute Eosinophil Count 0.02 10^3/uL (0.0-0.7); Absolute Lymphocyte Count 0.91 10^3/uL (1.2-3.4); Absolute Monocyte Count 0.62 10^3/uL (0.1-0.8); Absolute Neutrophil Count 5.81 10^3/uL (1.2-6.7); Basophils % 0.5; Eosinophils % 0.3; HCT 38.7 % (40.0-50.0); HGB 13.8 g/dL (13.5-17.5); Immature Grans % 0.3; Lymphocytes % 12.3; MCH 31.2 pg (27.0-33.0); MCHC 35.7 % (32.0-36.0); MCV 88 fL (80-95); MPV 10.2 fL (8.0-11.0); Monocytes % 8.4; Neutrophils % 78.2; Platelet Count 199 10^3/uL (130-400); RBC 4.42 10^6/uL (4.36-5.78); RDW 11.4 % (11.8-14.1); RDW-SD 36.9 fL; WBC 7.42 10^3/uL (4.4-10.8)
[2021-12-10 06:42] LABS: Anion Gap 7.9 mmol/L (3-11); BUN 20 mg/dL (7-18); CO2 25.1 mmol/L (21.0-32.0); CREATININE 1.2 mg/dL (0.70-1.30); Chloride 104 mmol/L (98-107); Estimated GFR 73.67 (mL/min/1.73m2); Glucose 291 mg/dL (74-106); Magnesium 1.6 mg/dL (1.8-2.4); Potassium 4.6 mmol/L (3.5-5.1); Sodium 137 mmol/L (136-145)
[2021-12-10] MEDS: Insulin Glargine 300 UNITS/3 ML PEN 20 UNITS SC (07:38)
[2021-12-10] MEDS: Insulin Aspart 300 UNITS/3 ML PEN SC ×6 (07:42→17:47)
[2021-12-10] MEDS: MAGNESIUM SULFATE 2 GM/50 ML BAG IVPB (07:50)
[2021-12-10] MEDS: Bacitracin 1 PACKET TP (07:50)
[2021-12-10] MEDS: Normal Saline Flush 10 ML SYR IVP (07:51)
--- NOTE | 2021-12-10 09:07 | PDOC.CMIN ---
- If Service Date Differs Date of service: 12/10/21 Time of Service: 09:07 Care Management Initial Assess REASON FOR HOSPITALIZATION:: DKA PAST MEDICAL HISTORY/PAST SURGICAL HISTORY:: All Active Problems (Updated 12/08/21 @ 18:42 by Sylvester Newberry MD). DVT prophylaxis (Acute). Dehydration (Acute). Acute kidney injury (nontraumatic) (Acute). Diabetic ketoacidosis associated with type 2 diabetes mellitus (Acute). Schizophrenia (Chronic) PREVIOUS FUNCTIONAL STATUS/SOCIAL/FAMILY SUPPORTS:: Isiah lives alone in [facility]. He is a [employer] client and Lindsay Lo is his business case analyst. Isiah, who likes to be called Erec, was unable/unwilling to provide additional details to CM. CURRENT FUNCTIONAL STATUS:: Isiah was lying in bed when CM met with him. He was pleasant but very delusional at the time of the visit. He informed CM that police now have darts that they shoot into people to subdue them so that they can handcuff them. Then, he stated, they bring them to the president who will execute them. Attempts to further the conversation were unsuccessful. Isiah was admitted with DKA with a blood sugar of 640. He stated that he has never taken Insulin. CM contacted his PCP office and was able to confirm that fact. The last time he was seen in the office was in November,. His A1-C was 7.1 and is now 11.8. He had Metformin 500mg bid prescribed in 2019 but it does not appear he has been taking it. CM spoke with Leydi Cardenas RN for [employer], who did not have a lot of information about Isiah. There is concern that Isiah may not be able to administer his own insulin and monitor his blood sugars safely. He lives alone and does not appear to have a great deal of support. Leydi indicated that she would discuss the situation with other [employer] staff and would plan to connect with CM again tomorrow. ADVANCE DIRECTIVES:: none on file Has patient been provided with info about the portal/API?: Yes Did the patient sign up for the portal?: No CODE STATUS:: DNR/DNI INSURANCE COVERAGE / FINANCIAL ISSUES:: Medicare CURRENT HOME/COMMUNITY SERVICES/EQUIPMENT:: Isiah is a [employer] client PRIMARY CARE PHYSICIAN:: Katy Brooks POTENTIAL DISCHARGE NEEDS:: follow up with PCP and plan of care PATIENT/FAMILY EDUCATION NEEDS:: Review of dichsarge instructions, limitations, diet, follow up plan, Ask Me Three ANTICIPATED BARRIERS TO DISCHARGE:: placement where he can have Insulin administered as needed with good glucose control TRANSPORTATION:: via private vehicle with friends/family PLAN:: Isiah's discharge plan is unclear at this time. He has a home to return to but has new insulin requirements to manage his diabetes. It is doubtful that he will be able to manage this independently. If he returns home he will need new home health services for nursing to monitor his blood sugars and administer insulin while reinforcng teaching initiated at [facility]. CM will continue to support Isiah and assess for discharge needs and available community supports.
[2021-12-10] MEDS: Insulin Glargine 300 UNITS/3 ML PEN 30 UNITS SC (09:23)
--- NOTE | 2021-12-10 10:15 | PGE_ITS ---
Date of Service Date of service: 12/10/21 Time of Service: 09:05 Assessment and Plan Assessment and plan (1) Diabetic ketoacidosis associated with type 2 diabetes mellitus: Status: Resolved Assessment and plan: Uptitrate long acting insulin. Off of insulin gtt since yesterday afternoon. I have concerns as to this patient's ability to administer his own insulin. We will touch base with mental health to see what kind of supervision he has in the community. DM education consulted. (2) Acute kidney injury (nontraumatic): Status: Resolved Assessment and plan: D/c IVF. (3) Dehydration: Status: Resolved Assessment and plan: D/c IVF (4) Schizophrenia: Status: Chronic Assessment and plan: The patient refuses Abilify and vraylar, stating he does not take these at home. Per our pharmacy review, he, in fact, had these prescriptions picked up on 11/11/21. Deusional on admission. Mental health is consulted. (5) DVT prophylaxis: Status: Acute Assessment and plan: lovenox 40 mg SC daily (6) Discharge planning issues: Status: Acute Assessment and plan: DNR/DNI. Transfer out of ICU. Subjective Subjective Interval history since last seen: Mr Curran states that his neck is bothering him but that otherwise he is not having any pain. Denies dizzines, chest discomfort, shortness of breath, nausea. Got agitated last night and received 2 mg of IV ativan, after which he required 10 L of O2 by facemask and was snoring loudly. He is on RA now and fully awake. When I ask him if he would be willing to learn how to give himself insulin, he answers will someone check my blood sugar again? He is not giving me a clear answer as to whether or not he will try. He continues to refuse his psychiatric medications. Exam Narrative Exam Narrative: General: Pleasant obese male who is slightly slow to respond to quest ions, A&Ox3, NAD HEENT: EOMI, MMM Heart: RRR, no m/r/g Lungs: Diminished breath sounds at B bases Abdomen: soft, nontender, nondistended Extremities: no edema BLEs. Objective Last Vital Signs Temp 36.2 C L 12/10/21 07:45 Pulse 94 H 12/10/21 08:02 Resp 19 12/10/21 08:52 BP 129/77 12/10/21 08:02 Pulse Ox 91 L 12/10/21 08:30 Laboratory Results - last 24 hr 12/09/21 12/09/21 12/09/21 11:10 11:10 15:22 WBC RBC Hgb Hct MCV MCH MCHC RDW Plt Count MPV Immature Gran % Neutrophils % Lymphocytes % Monocytes % Eosinophils % Basophils % Nucleated RBC % Absolute Neutrophils Absolute Lymphocytes Absolute Monocytes Absolute Eosinophils Absolute Basophils VBG pH 7.24 L VBG pCO2 40 L VBG pO2 77 VBG HCO3 17 L VBG Total CO2 16 L VBG O2 Saturation 94 VBG Base Excess -10 L Sodium 135 L 137 Potassium 4.6 4.5 Chloride 104 106 Carbon Dioxide 19.7 L 21.4 Anion Gap 11.3 H 9.6 BUN 30 H 30 H Creatinine 1.4 H 1.3 Est GFR (CKD-EPI 2020) 61.23 66.93 Glucose 407 H 222 H Calcium 8.3 L 8.6 Magnesium 1.8 2.0 12/09/21 12/09/21 12/10/21 15:22 20:15 05:15 WBC RBC Hgb Hct MCV MCH MCHC RDW Plt Count MPV Immature Gran % Neutrophils % Lymphocytes % Monocytes % Eosinophils % Basophils % Nucleated RBC % Absolute Neutrophils Absolute Lymphocytes Absolute Monocytes Absolute Eosinophils Absolute Basophils VBG pH 7.34 VBG pCO2 37 L VBG pO2 31 VBG HCO3 20 L VBG Total CO2 18 L VBG O2 Saturation 62 VBG Base Excess -6 L Sodium 136 137 Potassium 4.4 4.6 Chloride 103 104 Carbon Dioxide 22.6 25.1 Anion Gap 10.4 7.9 BUN 28 H 20 H Creatinine 1.3 1.2 Est GFR (CKD-EPI 2020) 66.93 73.67 Glucose 332 H 291 H Calcium 8.6 8.0 L Magnesium 1.8 1.6 L 12/10/21 05:15 WBC 7.42 RBC 4.42 Hgb 13.8 Hct 38.7 L MCV 88 MCH 31.2 MCHC 35.7 RDW 11.4 L Plt Count 199 MPV 10.2 Immature Gran % 0.3 Neutrophils % 78.2 Lymphocytes % 12.3 Monocytes % 8.4 Eosinophils % 0.3 Basophils % 0.5 Nucleated RBC % 0.0 Absolute Neutrophils 5.81 Absolute Lymphocytes 0.91 L Absolute Monocytes 0.62 Absolute Eosinophils 0.02 Absolute Basophils 0.04 VBG pH VBG pCO2 VBG pO2 VBG HCO3 VBG Total CO2 VBG O2 Saturation VBG Base Excess Sodium Potassium Chloride Carbon Dioxide Anion Gap BUN Creatinine Est GFR (CKD-EPI 2020) Glucose Calcium Magnesium
--- NOTE | 2021-12-10 10:40 | NUR.NOTE ---
After assisting patient with shower and back to room, this sql report writer called hospitalist to see if he needed to be reconnected to telemetry heart monitor due to anticipation of being a med surg status. said at this time the patient DOES NOT need telemetry, so he was not put back on monitoring system. RN aware Nursing Note:
--- NOTE | 2021-12-10 16:02 | NUR.NOTE ---
Pt is talking to me about the evil which needs to be killed out. There is evil robots using computers, while the patient is talking to me he is stuttering and having issues finding the right words. He visibly becomes frustrated with this word searching and emits a big sigh. He explained that the evil inside him is causing him to forget what hes saying. Patient also explains he hears thoughts pop into his head. Even though they aren't his thoughts, they give him ideas. Nursing Note:
[2021-12-10] MEDS: ARIPiprazole 15 MG TAB 30 MG PO (23:30)
[2021-12-11] MEDS: Insulin Aspart 300 UNITS/3 ML PEN SC ×6 (00:05→22:12)
[2021-12-11] MEDS: LORazepam 20 MG/10 ML VIAL IVP (01:09)
[2021-12-11 06:11] VITALS: BP 144/84; PULSE 87
[2021-12-11] MEDS: Insulin Glargine 300 UNITS/3 ML PEN 30 UNITS SC (08:35)
[2021-12-11 08:41] VITALS: BP 153/83; PULSE 82; O2SAT 94
[2021-12-11 08:49] VITALS: TEMP 36.7
--- NOTE | 2021-12-11 09:05 | W.PM.PROGNOT ---
Date of Service Date of service: 12/11/21 Time of Service: 09:05 Assessment and Plan Assessment and plan (1) Diabetic ketoacidosis associated with type 2 diabetes mellitus: Status: Resolved Assessment and plan: FBG 219 this am. Uptitrate long acting insulin to 35 units. I have concerns as to this patient's ability to administer his own insulin given his delusional state. Mental health is consulted. DM education consulted. (2) Acute kidney injury (nontraumatic): Status: Resolved Assessment and plan: Refused labs this am - unable to assess renal function. (3) Dehydration: Status: Resolved Assessment and plan: as above (4) Schizophrenia: Status: Chronic Assessment and plan: The patient took Abilify last night but continues to refuse vraylar, stating he does not take these at home. Per our pharmacy review, he, in fact, had these prescriptions picked up on 11/11/21. Delusional on admission. Mental health is consulted. (5) DVT prophylaxis: Status: Acute Assessment and plan: lovenox 40 mg SC daily (6) Discharge planning issues: Status: Acute Assessment and plan: DNR/DNI. Disposition per mental health. Subjective Subjective Interval history since last seen: Erec states that he is really busy helping people right now and would really rather not talk to me. Last night he did require 1 mg of ativan - no behaviors reported since. Per nursing, he has been having hallucinations (appears to be both auditory and visual). Exam Narrative Exam Narrative: General: Pleasant obese male who is refusing a physical exam (very politely) HEENT: EOMI Heart: not auscultated (Patient refused) Lungs: nonlabored breathing Abdomen: obese Extremities: no visible edema BLEs. Objective Last Vital Signs Temp 36.7 C 12/11/21 08:49 Pulse 82 12/11/21 08:41 Resp 21 12/10/21 09:50 BP 153/83 H 12/11/21 08:41 Pulse Ox 94 12/11/21 08:41
--- NOTE | 2021-12-11 09:18 | PDOC.CMPRO ---
- If Service Date Differs Date of service: 12/11/21 Time of Service: 09:18 Care Management Progress Note S/O: Milind has been agitated much of the day today. He ran out of the ICU down the adames at one point shouting that we lost the war. He was able to be redirected back to his room and was medicated with IM Zyprexa. This morning Lindsay, Milind's CONVENTION SERVICES DIRECTOR social work case manager, visited with him. She found him to be more delusional than at baseline and is seeking voluntary inpatient psychiatric care for him. At this point, Milind is agreeable. One potential barrier is the need for close glucose monitoring and insulin administration which may not be available in all psychiatric facilities.. A: Isiah is a 51 year old man admitted on 12/08/21 in DKA P:Isiah's discharge plan is unclear at this time. He has a home to return to but has new insulin requirements to manage his diabetes. It is doubtful that he will be able to manage this independently. If he returns home he will need new home health services for nursing to monitor his blood sugars and administer insulin while reinforcing teaching initiated at [facility]. will continue to support Isiah and assess for discharge needs and available community supports.
[2021-12-11] MEDS: Insulin Glargine 300 UNITS/3 ML PEN SC (09:19)
[2021-12-11] MEDS: OLANZapine 10 MG VIAL 5 MG IM (10:33)
[2021-12-11] MEDS: Water,Injection,Sterile 10 ML VIAL (10:34)
--- NOTE | 2021-12-11 11:10 | NUR.NOTE ---
Mental health from LOAN EXPEDITOR in room at 11:00 on 2021. Nursing Note:
--- NOTE | 2021-12-11 12:32 | NUR.NOTE ---
At approximately 0940 on December 11, 2021. This patient came out of his room concerned about the adapter to his portable massage machine that he has with him. At this time he became agitated and saying things like, I'm gonna . and I'm . This sports book writer and RN reassured patient that he was very well alive and safe. At this time security was called for safety measures as patient started to run out of his room and onto the medical floor. Once security showed up, the patient started yelling, We did it. We won the [employer] war. Multiple times this happened. At this time the patient had a pen in his hand and I asked if I could borrow it so I could write some notes (for safety to get it away from patient) Once security arrived, the patient seemed to calm down and we were able to escort him back into his room. Once back in his room, with security on standby, patient still seemed agitated and concerned. This sports book writer asked if there was anyone I could call that would be willing to go get his adapter for his portable massage gun that he is worried about having and he responded with We're gonna . After patient sat on bed, I asked him if he wanted a fresh cup of coffee until he could think of anyone for me to call to get this adapter and he accepted the offer. Utensil removed from room at this time for safety measures. This was the last of the interactions I had with this patient regarding this incident. Nursing Note:
[2021-12-11] MEDS: ARIPiprazole 15 MG TAB 30 MG PO (12:59)
[2021-12-11] MEDS: Bacitracin 1 PACKET TP (13:05)
[2021-12-11 13:14] LABS: Abs Immature Grans 0.02 10^3/uL (0.0-0.06); Absolute Basophil Count 0.03 10^3/uL (0.0-0.2); Absolute Eosinophil Count 0.05 10^3/uL (0.0-0.7); Absolute Lymphocyte Count 1.04 10^3/uL (1.2-3.4); Absolute Monocyte Count 0.51 10^3/uL (0.1-0.8); Absolute Neutrophil Count 3.78 10^3/uL (1.2-6.7); Basophils % 0.6; Eosinophils % 0.9; HCT 38.1 % (40.0-50.0); Immature Grans % 0.4; Lymphocytes % 19.2; MCH 31.5 pg (27.0-33.0); MCHC 36.7 % (32.0-36.0); MCV 86 fL (80-95); MPV 9.8 fL (8.0-11.0); Monocytes % 9.4; Neutrophils % 69.5; Platelet Count 215 10^3/uL (130-400); RBC 4.44 10^6/uL (4.36-5.78); RDW 11.1 % (11.8-14.1); RDW-SD 34.7 fL; WBC 5.43 10^3/uL (4.4-10.8)
[2021-12-11 13:44] LABS: Anion Gap 7.4 mmol/L (3-11); BUN 16 mg/dL (7-18); CO2 28.6 mmol/L (21.0-32.0); CREATININE 0.9 mg/dL (0.70-1.30); Calcium 8.5 mg/dL (8.5-10.1); Chloride 104 mmol/L (98-107); Estimated GFR 104.05 (mL/min/1.73m2); Glucose 306 mg/dL (74-106); Magnesium 1.8 mg/dL (1.8-2.4); Sodium 140 mmol/L (136-145)
[2021-12-11 13:48] LABS: Potassium 3.6 mmol/L (3.5-5.1)
--- NOTE | 2021-12-11 13:53 | W.INDIABCONS ---
Date of service: 12/11/21 Time of Service: 13:53 Diabetes Inpatient Consult Reason for Visit: DM DESCRIPTION/ASSESSMENT: 51 year old male admitted with dehydration, CAMILO and DKA (BS: 640 mg/dl). PMH: schizophrenia, obesity. Most recent A1C: 11.8% indicates poor glycemic management. Per report, has not been taking his medications,insulin as prescribed. Following diabetic meal plan with adequate intake. Meeting macronutrient needs. Blood sugar now controlled by SS aspart and 35 units lantus HS. Awaiting mental health evaluation as hallucinating and hearing voices . INTERVENTION: Diabetes education not appropriate at this time PLAN: Will be available to provide diabetes self management education when/if Dwayne becomes more receptive to education Time Spent in Nutritional Counseling and Treatment: 0
--- NOTE | 2021-12-11 16:02 | PHA.REVIEW ---
Pharmacy Admission Review - Admission Clinical Review (Last Reviewed 12/08/21 @ 18:32 by Sylvester Newberry MD) Discharge planning issues (Acute) DVT prophylaxis (Acute) No Known Allergies Allergy (Unverified 12/08/21 22:25) Resuscitation Status DNR/DNI Height 5 ft 9 in Weight 105.4 kg - Renal Dosing Renal Dosing: BUN 16 mg/dL (7-18) 12/11/21 12:58 Creatinine 0.9 mg/dL (0.70-1.30) 12/11/21 12:58 Medications needing adjustments: Reviewed (Crcl ~117.4 mL/min current meds okay) - Anticoagulation Anticoagulation: Hgb 14.0 g/dL (13.5-17.5) 12/11/21 12:58 Hct 38.1 % (40.0-50.0) L 12/11/21 12:58 Plt Count 215 10^3/uL (130-400) 12/11/21 12:58 Creatinine 0.9 mg/dL (0.70-1.30) 12/11/21 12:58 DVT Prophylaxis: Reviewed Medications: Enoxaparin Therapeutic Anticoagulation: N/A - Opiate Usage Evaluate Pain Scale/Pains Meds: N/A - Relevant Labs Sodium 140 mmol/L (136-145) 12/11/21 12:58 Potassium 3.6 mmol/L (3.5-5.1) D 12/11/21 12:58 Chloride 104 mmol/L (98-107) 12/11/21 12:58 Phosphorus 3.5 mg/dL (2.6-4.7) 12/09/21 07:00 Magnesium 1.8 mg/dL (1.8-2.4) 12/11/21 12:58 Electrolytes, C-Reactive P, ESR: Reviewed - DM Control DM Control: Glucose 306 mg/dL (74-106) H 12/11/21 12:58 Hemoglobin A1c 11.8 % (<5.7) H 12/09/21 07:00 Finger Stick Blood Glucose 280 Finger Stick Blood Glucose 280 Finger Stick Blood Glucose 280 Finger Stick Blood Glucose 219 Finger Stick Blood Glucose 219 Finger Stick Blood Glucose 219 Insulin Dosing: Reviewed (Scheduled insulin glargine and aspart ordered in addition to sliding scale aspart.) - Heart Failure/SD Heart Failure/SD: Troponin I < 50 ng/L (<or=60) 12/08/21 17:35 EF%, SALENA's, B-Blockers, Diuretics: Reviewed - BP Control BP Control: Blood Pressure 153/83 Blood Pressure 144/84 If elevated: Reviewed (BP has been up and down some since admission; has been elevated so far today. No BP meds ordered or on home med list.) - Qtc Review If Elevated: Reviewed (QTc 471 on admission, pt has aripiprazole and cariprazine ordered) - IV to PO Switch IV Medications: Reviewed - Home Meds Home Med List reviewed: Reviewed (Per nursing and progress note, pt was staing he did not take abilify and cariprazine, per external med history and pharmacy both meds have been filled recently.) - Current meds Current Medication Order Review: Reviewed - Comments Comments/Follow Ups: Watch BP, BG, labs and for med changes.
[2021-12-11 16:04] VITALS: BP 157/89; PULSE 101; O2SAT 93
[2021-12-11 16:14] VITALS: TEMP 36.6
--- NOTE | 2021-12-11 16:25 | NUR.NOTE ---
Nursing Note: Clint in the day patient ran out of his room and was saying we lost the war....holy fuck....we are all going to . Later several times he was happier and saying we won the war. Occasionally after we won the war he would be labile and would dry and be happy. At other times he would talk about how we are all going to live forever. At other times when patient was alone in his room alone with door closed, this nurse could hear him talking in room.
[2021-12-12 04:00] VITALS: BP 148/88; RESP 21; TEMP 36.4; O2SAT 93
[2021-12-12] MEDS: LORazepam 0.5 MG TAB PO (07:40)
[2021-12-12] MEDS: ARIPiprazole 15 MG TAB 30 MG PO (07:40)
[2021-12-12] MEDS: Insulin Aspart 300 UNITS/3 ML PEN SC ×6 (08:06→22:06)
[2021-12-12] MEDS: Insulin Glargine 300 UNITS/3 ML PEN 40 UNITS SC (08:35)
--- NOTE | 2021-12-12 09:37 | CMPROGNOTE_ITS ---
- If Service Date Differs Date of service: 12/12/21 Time of Service: 09:37 Care Management Progress Note 0920: CM called [facility] [employer] Juancarlos, to relay information regarding admission and disposition planning. Juancarlos reported he had not been notified of Isiah's admission to [facility]. Juancarlos requested this manual writer to ask SPEECH CORRECTION CONSULTANT Point to call [facility] Admissions line to officially notify of Isiah's status at [facility]. CM provided case review and concern for patient self management of insulin, recognizing that stabilizing mental status would take precedent in treatment. Juancarlos stated it was likely Isiah would need to go to a more medical based psychiatric unit such as [place] or [facility]. 0930 CM called [facility] and spoke with Jareth Montoya SPEECH CORRECTION CONSULTANT CM, who advised she was lacking demographic information to call [facility] admissions which delayed notification. She reported she had access to the information and would notify [facility]. CM inquired as to referral status, Lindsay reported only sending her note (not available in patient chart) and medication list requested from [facility] so all facilities would require updated clinicals. CM offered to send clinicals, Lindsay stated SPEECH CORRECTION CONSULTANT point person would arrive at [facility] after [facility] morning meeting and collect clinical information then. 0945 CM recieved call from Sylvester, [facility] Crisis and SPEECH CORRECTION CONSULTANT point requesting patient information and location. Sylvester stated he would bring Lindsay's note to add to paper chart and see patient. When CM offered, Sylvester stated updated clinicals could be faxed to [facility], [place], and [facility]. Sylvester reported he would collect packet while at [facility]. 0950 Updated referrals faxed. 1020 referral provided to Sylvester, while at [facility] meeting with Isiah. [facility] note placed on chart. 1445 Nurse Ernestina reported patient was seeking contact with his rn case manager Lindsay to coordinate mail and house keys. CM provided contact information. 1545 Sylvester reported no bed updates at this time. SUNI notified
--- NOTE | 2021-12-12 09:37 | PDOC.CMPRO ---
- If Service Date Differs Date of service: 12/12/21 Time of Service: 09:37 Care Management Progress Note 0920: CM called [facility] [employer] Juancarlos, to relay information regarding admission and disposition planning. Juancarlos reported he had not been notified of Isiah's admission to [facility]. Juancarlos requested this selling underwriter to ask MANAGER STRATEGY & ACCOUNT Point to call [facility] Admissions line to officially notify of Isiah's status at [facility]. CM provided case review and concern for patient self management of insulin, recognizing that stabilizing mental status would take precedent in treatment. Juancarlos stated it was likely Isiah would need to go to a more medical based psychiatric unit such as [facility] or [facility]. 0930 CM called [facility] and spoke with Jareth Montoya MANAGER STRATEGY & ACCOUNT CM, who advised she was lacking demographic information to call [facility] admissions which delayed notification. She reported she had access to the information and would notify [facility]. CM inquired as to referral status, Lindsay reported only sending her note (not available in patient chart) and medication list requested from [facility] so all facilities would require updated clinicals. CM offered to send clinicals, Lindsay stated MANAGER STRATEGY & ACCOUNT point person would arrive at [facility] after [facility] morning meeting and collect clinical information then. 0945 CM recieved call from Sylvester, [facility] Crisis and MANAGER STRATEGY [employer] ACCOUNT point requesting patient information and location. Sylvester stated he would bring Lindsay's note to add to paper chart and see patient. When CM offered, Sylvester stated updated clinicals could be faxed to [facility], [facility], and [facility]. Sylvester reported he would collect packet while at [facility]. 0950 Updated referrals faxed. 1020 referral provided to Sylvester, while at [facility] meeting with Isiah. [facility] note placed on chart. 1445 Nurse Ernestina reported patient was seeking contact with his transplant case manager Lindsay to coordinate mail and house keys. CM provided contact information. 1545 Sylvester reported no bed updates at this time. SUNI notified
--- NOTE | 2021-12-12 10:24 | NUR.NOTE ---
Nursing Note: [facility] is in room talking to patient at this time.
[2021-12-12] MEDS: diazePAM 5 MG TAB PO (12:15)
[2021-12-12] MEDS: Lidocaine 5% Patch 1 PATCH TP (12:15)
[2021-12-12 15:56] LABS: Anion Gap 10.5 mmol/L (3-11); BUN 16 mg/dL (7-18); CO2 27.5 mmol/L (21.0-32.0); CREATININE 1.1 mg/dL (0.70-1.30); Calcium 9.3 mg/dL (8.5-10.1); Chloride 101 mmol/L (98-107); Estimated GFR 81.78 (mL/min/1.73m2); Glucose 273 mg/dL (74-106); Magnesium 1.7 mg/dL (1.8-2.4); Potassium 3.5 mmol/L (3.5-5.1); Sodium 139 mmol/L (136-145)
--- NOTE | 2021-12-12 17:20 | W.PM.PROGNOT ---
Date of Service Date of service: 12/12/21 Time of Service: 17:21 Assessment and Plan Assessment and plan (1) Diabetic ketoacidosis associated with type 2 diabetes mellitus: Status: Resolved Assessment and plan: FBG 194 this am. Long acting insulin increased to 40 units qam. I have concerns as to this patient's ability to administer his own insulin given his delusional state. Mental health is consulted. DM education consulted. (2) Acute kidney injury (nontraumatic): Status: Resolved Assessment and plan: Cr stable (3) Dehydration: Status: Resolved Assessment and plan: as above (4) Schizophrenia: Status: Chronic Assessment and plan: Not consistently compliant with medications here - refusing them most of the time. Per our pharmacy review, he, in fact, picked up both vraylar and abilify prescriptions on 11/11/21. Delusional on admission. Mental health is consulted. (5) DVT prophylaxis: Status: Acute Assessment and plan: lovenox 40 mg SC daily (6) Discharge planning issues: Status: Acute Assessment and plan: DNR/DNI. Disposition per mental health. Voluntary psychiatric placement is being procured. Subjective Subjective Interval history since last seen: Erec states that his neck is bothering him, but otherwise he is feeling well. Denies dizziness, chest pain, shortness of breath, nausea. Exam Narrative Exam Narrative: General: Pleasant obese male, A&Ox3, NAD HEENT: EOMI, MMM Heart: RRR, no m/r/g Lungs: CTAB Abdomen: soft, nontender, nondistended Extremities: no visible edema BLEs, R hand abrasions on knuckles healing well. Objective Last Vital Signs Temp 36.4 C L 12/12/21 04:00 Pulse 101 H 12/11/21 16:04 Resp 21 12/12/21 04:00 BP 148/88 H 12/12/21 04:00 Pulse Ox 93 12/12/21 04:00 Laboratory Results - last 24 hr 12/12/21 14:51 Sodium 139 Potassium 3.5 Chloride 101 Carbon Dioxide 27.5 Anion Gap 10.5 BUN 16 Creatinine 1.1 Est GFR (CKD-EPI 2020) 81.78 Glucose 273 H Calcium 9.3 Magnesium 1.7 L
[2021-12-12] MEDS: Enoxaparin 40 MG/0.4 ML SYR SC (17:27)
[2021-12-13 04:00] VITALS: BP 136/42; PULSE 101; TEMP 36.7; O2SAT 98
[2021-12-13] MEDS: ARIPiprazole 15 MG TAB 30 MG PO (08:46)
[2021-12-13] MEDS: Magnesium Oxide 400 MG TAB PO (08:47)
--- NOTE | 2021-12-13 09:50 | PDOC.CMPRO ---
- If Service Date Differs Date of service: 12/13/21 Time of Service: 09:50 Care Management Progress Note S/O: Milind has been refusing all of his medications and nursing care today, including having bloodwork drawn. He asked to speak to Lindsay who is his [employer] machine adjuster leader case trim, but she was not working. He did speak to Sylvester Townsend who was covering for [employer] and Sylvester was able to get him to take some of his medication, including his Insulin. Per Sylvester, there are no beds available at [facility], [facility], or [place], and [facility] is reviewing his referral. Milind remains voluntary at this time. A: Isiah is a 51 year old man admitted on 12/08/21 in DKA P:Milind's discharge plan is unclear at this time. He is awaiting voluntary psychiatric hospitalization for stabilization of his mental health issues. Due to his complex medical needs, he would likely need to go to a facility that has strong medical support. After discharge, Milind has a home to return to but has new insulin requirements to manage his diabetes. It is doubtful that he will be able to manage this independently. If he returns home he will need new home health services for nursing to monitor his blood sugars and administer insulin while reinforcing teaching initiated at [facility]. will continue to support Isiah and assess for discharge needs and available community supports.
[2021-12-13] MEDS: Insulin Glargine 300 UNITS/3 ML PEN 40 UNITS SC (10:36)
--- NOTE | 2021-12-13 10:46 | NUR.NOTE ---
Nursing Note: Patient is refusing treatments, MD aware. Case management contacted and [facility] counselor (Sylvester) will be in around 11:30.
[2021-12-13] MEDS: Insulin Aspart 300 UNITS/3 ML PEN SC ×2 (11:37→17:32)
[2021-12-13] MEDS: Lidocaine 5% Patch 1 PATCH TP (11:44)
[2021-12-13 11:47] VITALS: BP 156/100; PULSE 98; O2SAT 94
[2021-12-13] MEDS: diazePAM 5 MG TAB PO (11:53)
[2021-12-13 12:08] VITALS: RESP 20; TEMP 36.8
--- NOTE | 2021-12-13 14:34 | W.PM.PROGNOT ---
Date of Service Date of service: 12/13/21 Time of Service: 14:34 Assessment and Plan Assessment and plan (1) Diabetic ketoacidosis associated with type 2 diabetes mellitus: Status: Resolved Assessment and plan: We do not have an FBG this morning - the patient refused. Continue lantus 40 units daily, scheduled prandial + SSI insulin. I have concerns as to this patient's ability to administer his own insulin given his delusional state. Mental health is consulted and seeking placement. DM education consulted. (2) Acute kidney injury (nontraumatic): Status: Resolved Assessment and plan: Cr stable Patient refused blood draw today. (3) Dehydration: Status: Resolved Assessment and plan: as above (4) Schizophrenia: Status: Chronic Assessment and plan: Not compliant with medications here - refusing them most of the time. Per our pharmacy review, he, in fact, picked up both vraylar and abilify prescriptions on 11/11/21. Delusional on admission. Mental health is consulted. (5) DVT prophylaxis: Status: Acute Assessment and plan: lovenox 40 mg SC daily (6) Discharge planning issues: Status: Acute Assessment and plan: DNR/DNI. Disposition per mental health. Voluntary psychiatric placement is being procured. Subjective Subjective Interval history since last seen: Mr Bina is even more tangential in his speech today. His answers do not make sense to me. He refused his insulin this morning, but did agree to take it eventually. He states that his whole body shook and that it was painful (he then proceeded to make himself shake). He stated that he could, in fact, stop it and did. Exam Narrative Exam Narrative: General: Pleasant obese male, having word salad, tangential speech, delusional thinking. HEENT: EOMI, MMM Heart: RRR, no m/r/g Lungs: CTAB Abdomen: soft, nontender, nondistended Extremities: no visible edema BLEs, R hand abrasions on knuckles healing well. Objective Last Vital Signs Temp 36.8 C 12/13/21 12:08 Pulse 98 H 12/13/21 11:47 Resp 20 12/13/21 12:08 BP 156/100 H 12/13/21 11:47 Pulse Ox 94 12/13/21 11:47 Laboratory Results - last 24 hr 12/12/21 14:51 Sodium 139 Potassium 3.5 Chloride 101 Carbon Dioxide 27.5 Anion Gap 10.5 BUN 16 Creatinine 1.1 Est GFR (CKD-EPI 2020) 81.78 Glucose 273 H Calcium 9.3 Magnesium 1.7 L
[2021-12-13 16:59] VITALS: BP 152/92; PULSE 85; O2SAT 92
[2021-12-13 17:00] VITALS: RESP 20; TEMP 36.2
[2021-12-13] MEDS: Enoxaparin 40 MG/0.4 ML SYR SC (17:32)
[2021-12-14 01:14] VITALS: BP 153/99; PULSE 102
[2021-12-14 08:45] VITALS: BP 143/86; PULSE 100; RESP 18; TEMP 36.3; O2SAT 95
--- NOTE | 2021-12-14 08:49 | NUR.NOTE ---
Nursing Note: pt transferred from ICU, report taken from VISHNU Monte.
[2021-12-14 11:45] VITALS: BP 141/99; PULSE 118; RESP 18; TEMP 36.5; O2SAT 97
[2021-12-14] MEDS: diazePAM 5 MG TAB PO (11:54)
[2021-12-14 14:56] VITALS: BP 142/94; PULSE 107; RESP 18; TEMP 37.2; O2SAT 95
--- NOTE | 2021-12-14 15:52 | W.PM.PROGNOT ---
Date of Service Date of service: 12/14/21 Time of Service: 15:52 Assessment and Plan Assessment and plan (1) Diabetic ketoacidosis associated with type 2 diabetes mellitus: Status: Resolved Assessment and plan: He refused fingerstick glucose this AM but did allow the AC stick before lunch; reading was 213. Continue lantus 40 units daily, scheduled prandial + SSI insulin. I have concerns as to this patient's ability to administer his own insulin given his delusional state. Mental health is consulted and seeking placement. DM education consulted. (2) Acute kidney injury (nontraumatic): Status: Resolved Assessment and plan: Creatinine normalized. Now refuses lab draws. (3) Dehydration: Status: Resolved Assessment and plan: as above (4) Schizophrenia: Status: Chronic Assessment and plan: Not compliant with medications here - refusing them most of the time. Per our pharmacy review, he, in fact, picked up both vraylar and abilify prescriptions on 11/11/21. Delusional on admission. Mental health is consulted. (5) DVT prophylaxis: Status: Acute Assessment and plan: lovenox 40 mg SC daily (6) Discharge planning issues: Status: Acute Assessment and plan: DNR/DNI. Disposition per mental health. Voluntary psychiatric placement is being procured. Subjective Subjective Patient reports: no new complaints, tolerating a regular diet and afebrile; denies nausea, vomiting or shortness of breath Interval history since last seen: Pt is walking in his room. Mentions numbers that were his latest results; unclear if he is referring to his weight because he mentions the scales, but he gives a number that would be likely a temperature. Exam Narrative Exam Narrative: General: Pleasant obese male, tangential speech. HEENT: EOMI, sclera clear. Heart: RRR, no murmur Lungs: CTAB Abdomen: soft, nontender, nondistended Extremities: no visible edema BLEs, R hand abrasions on knuckles healing well. No calf tenderness. Objective Last Vital Signs Temp 37.2 C 12/14/21 14:56 Pulse 107 H 12/14/21 14:56 Resp 18 12/14/21 14:56 BP 142/94 H 12/14/21 14:56 Pulse Ox 95 12/14/21 14:56 Laboratory Results - last 24 hr 12/13/21 07:46 Sodium Cancelled Potassium Cancelled Chloride Cancelled Carbon Dioxide Cancelled Anion Gap Cancelled BUN Cancelled Creatinine Cancelled Est GFR (CKD-EPI 2020) Cancelled Glucose Cancelled Calcium Cancelled Magnesium Cancelled
[2021-12-14] MEDS: Insulin Aspart 300 UNITS/3 ML PEN SC ×2 (17:03)
[2021-12-14] MEDS: Insulin Glargine 300 UNITS/3 ML PEN 40 UNITS SC (18:33)
[2021-12-14 23:12] VITALS: BP 155/70; PULSE 95; RESP 16; TEMP 36.8; O2SAT 98
[2021-12-15 06:05] VITALS: BP 119/77; PULSE 82; RESP 18; TEMP 36.7; O2SAT 94
[2021-12-15 07:30] VITALS: BP 117/72; PULSE 86; RESP 20; TEMP 36; O2SAT 97
[2021-12-15] MEDS: Magnesium Oxide 400 MG TAB PO (09:02)
[2021-12-15] MEDS: Insulin Aspart 300 UNITS/3 ML PEN SC ×4 (09:11→21:11)
[2021-12-15 11:45] VITALS: BP 114/73; PULSE 88; RESP 19; TEMP 36.8; O2SAT 94
[2021-12-15] MEDS: metFORMIN 500 MG TAB PO ×2 (13:54→16:50)
[2021-12-15] MEDS: Empaglifozin 10 MG TAB PO (13:54)
[2021-12-15] MEDS: diazePAM 5 MG TAB PO (13:56)
--- NOTE | 2021-12-15 14:20 | W.PM.PROGNOT ---
Date of Service Date of service: 12/15/21 Time of Service: 14:21 Assessment and Plan Assessment and plan (1) Diabetic ketoacidosis associated with type 2 diabetes mellitus: Status: Resolved Assessment and plan: S/P DKA. Intermittently refusing insulin. I have significant concerns regarding his ability to monitor his glucose and administer insulin as well as his compliance. D/C insulin and begin Jardiance and metformin; titrate as necessary. Oupt support in diet education and adherence as best as can be provided and willingly accepted. (2) Acute kidney injury (nontraumatic): Status: Resolved Assessment and plan: Creatinine normalized. Now refuses lab draws. (3) Dehydration: Status: Resolved Assessment and plan: as above (4) Schizophrenia: Status: Chronic Assessment and plan: Not compliant with medications here - refusing them most of the time. Per our pharmacy review, he, in fact, picked up both vraylar and abilify prescriptions on 11/11/21. Delusional on admission. Mental health is consulted. (5) DVT prophylaxis: Status: Acute Assessment and plan: lovenox 40 mg SC daily (6) Discharge planning issues: Status: Acute Assessment and plan: DNR/DNI. Voluntary psychiatric placement is being procured. Subjective Subjective Patient reports: no new complaints, feels better, shortness of breath and afebrile; denies nausea or vomiting Interval history since last seen: He has not refused insulin this AM. He did refuse Vraylar, Mg and Aripiprazole earlier in the AM but then accepted the first doses of newly prescribed metformin and Jardiance. Exam Narrative Exam Narrative: General: Pleasant obese male. Normal speech pattern today. Carried on a conversation regarding where he grew up and his musical interest. Lying in bed. HEENT: EOMI, sclera clear. Heart: RRR, no murmur Lungs: CTAB Abdomen: soft, nontender, nondistended Extremities: no visible edema BLEs, R hand abrasions on knuckles healing well. No calf tenderness. Objective Last Vital Signs Temp 36.8 C 12/15/21 11:45 Pulse 88 12/15/21 11:45 Resp 19 12/15/21 11:45 BP 114/73 12/15/21 11:45 Pulse Ox 94 12/15/21 11:45
[2021-12-15 15:00] VITALS: BP 109/67; PULSE 97; RESP 19; TEMP 37.1; O2SAT 95
[2021-12-15 19:00] VITALS: BP 106/70; PULSE 92; RESP 23; TEMP 36.5; O2SAT 92
[2021-12-15] MEDS: Bacitracin 1 PACKET TP (21:23)
[2021-12-15 23:23] VITALS: BP 131/82; PULSE 81; RESP 16; TEMP 36.8; O2SAT 94
[2021-12-16 03:47] VITALS: BP 127/83; PULSE 88; RESP 16; TEMP 36; O2SAT 96
[2021-12-16 07:58] VITALS: BP 123/82; PULSE 82; RESP 17; TEMP 36.7; O2SAT 94
[2021-12-16] MEDS: Bacitracin 1 PACKET TP ×2 (08:20→18:42)
[2021-12-16] MEDS: Magnesium Oxide 400 MG TAB PO (08:54)
[2021-12-16] MEDS: Empaglifozin 10 MG TAB PO (08:54)
[2021-12-16] MEDS: metFORMIN 500 MG TAB PO ×2 (08:55→17:58)
--- NOTE | 2021-12-16 09:46 | PDOC.CMPRO ---
- If Service Date Differs Date of service: 12/16/21 Time of Service: 09:46 Care Management Progress Note S/O:Milind was sitting up in a chair when CM met with him. He was polite and appeared less delusional that he was previously. He has been taking all of his diabetes medications but still refuses his psychiatric medication at times. Milind will likely go to the Care Bed tomorrow for a while before returning to his own home. A:Milind is a 51 year old man admitted on 12/08/21 with DKA P:Anticipate Milind will transfer to the care bed tomorrow. He has been compliant with taking his medication and his blood sugars are under control. The insulin has been discontinued and he was started on oral hypoglycemic agents and is responding well to the regimen. CM will continue to support Milind and assess for ongoing discharge needs.
[2021-12-16] MEDS: Lidocaine 5% Patch 1 PATCH TP (10:22)
[2021-12-16 11:47] VITALS: BP 151/96; PULSE 89; RESP 18; TEMP 36.7; O2SAT 97
[2021-12-16] MEDS: diazePAM 5 MG TAB PO (12:34)
--- NOTE | 2021-12-16 17:08 | W.PM.PROGNOT ---
Date of Service Date of service: 12/16/21 Time of Service: 17:20 Assessment and Plan Assessment and plan (1) Diabetic ketoacidosis associated with type 2 diabetes mellitus: Status: Resolved Assessment and plan: S/P DKA. Intermittently refusing insulin. I have significant concerns regarding his ability to monitor his glucose and administer insulin as well as his compliance. D/C insulin and begin Jardiance and metformin; titrate as necessary. Watch for elevating readings and restart insulin if necessary. Currently, his blood glucose readings have been 120 > 124 > 209. Oupt support in diet education and adherence as best as can be provided and willingly accepted. (2) Acute kidney injury (nontraumatic): Status: Resolved Assessment and plan: Creatinine normalized. Now refuses lab draws. (3) Dehydration: Status: Resolved Assessment and plan: as above (4) Schizophrenia: Status: Chronic Assessment and plan: Not compliant with medications here - refusing them most of the time. Per our pharmacy review, he, in fact, picked up both vraylar and abilify prescriptions on 11/11/21. Delusional on admission. Mental health is consulted / have evaluated. [facility] monitoring. (5) DVT prophylaxis: Status: Acute Assessment and plan: lovenox 40 mg SC daily (6) Discharge planning issues: Status: Acute Assessment and plan: DNR/DNI. Subjective Subjective Patient reports: no new complaints, tolerating a regular diet and afebrile; denies diarrhea, nausea or vomiting Exam Narrative Exam Narrative: General:Lying in bed. Conversant. NAD. HEENT: EOMI, sclera clear. Heart: RRR, no murmur Lungs: CTAB Abdomen: soft, nontender, nondistended Extremities: no visible edema BLEs. No calf tenderness. Objective Last Vital Signs Temp 36.7 C 12/16/21 11:47 Pulse 89 12/16/21 11:47 Resp 18 12/16/21 11:47 BP 151/96 H 12/16/21 11:47 Pulse Ox 97 12/16/21 11:47 Laboratory Results - last 24 hr 12/15/21 12/15/21 05:35 05:35 WBC Cancelled RBC Cancelled Hgb Cancelled Hct Cancelled MCV Cancelled MCH Cancelled MCHC Cancelled RDW Cancelled Plt Count Cancelled MPV Cancelled Immature Gran % Cancelled Neutrophils % Cancelled Band Neutrophils % Cancelled Lymphocytes % Cancelled Atypical Lymphs % Cancelled Monocytes % Cancelled Eosinophils % Cancelled Basophils % Cancelled Metamyelocytes % Cancelled Myelocytes % Cancelled Promyelocytes % Cancelled Other Cells % Cancelled Nucleated RBC % Cancelled Absolute Neutrophils Cancelled Absolute Lymphocytes Cancelled Absolute Monocytes Cancelled Absolute Eosinophils Cancelled Absolute Basophils Cancelled RBC Morphology Cancelled Polychromasia Cancelled Hypochromasia Cancelled Poikilocytosis Cancelled Basophilic Stippling Cancelled Anisocytosis Cancelled Microcytosis Cancelled Macrocytosis Cancelled Spherocytes Cancelled Tear Drop Cells Cancelled Ovalocytes Cancelled Stomatocytes Cancelled Morris-Arden Bodies Cancelled Merrill Cells/Echinocytes Cancelled Acanthocytes (Spur) Cancelled Schistocytes Cancelled Sodium Cancelled Potassium Cancelled Chloride Cancelled Carbon Dioxide Cancelled Anion Gap Cancelled BUN Cancelled Creatinine Cancelled Est GFR (CKD-EPI 2020) Cancelled Glucose Cancelled Calcium Cancelled
[2021-12-16] MEDS: Insulin Aspart 300 UNITS/3 ML PEN SC ×2 (18:01→18:12)
[2021-12-16 19:35] VITALS: BP 114/75; PULSE 83; RESP 16; TEMP 36.8; O2SAT 94
[2021-12-16 22:39] VITALS: BP 114/74; PULSE 95; RESP 18; TEMP 36.8; O2SAT 92
[2021-12-17 03:37] VITALS: BP 107/67; PULSE 69; RESP 20; TEMP 36.5; O2SAT 98
[2021-12-17 07:54] VITALS: BP 116/77; PULSE 94; RESP 18; TEMP 36.6; O2SAT 96
[2021-12-17] MEDS: Magnesium Oxide 400 MG TAB PO (08:49)
[2021-12-17] MEDS: Empaglifozin 25 MG TAB PO (08:49)
[2021-12-17] MEDS: Insulin Aspart 300 UNITS/3 ML PEN SC ×2 (08:50→08:51)
[2021-12-17] MEDS: metFORMIN 500 MG TAB PO (08:50)
--- NOTE | 2021-12-17 09:28 | DSE_ITS ---
Date of service: 12/17/21 Time of Service: 09:28 DS: Diagnosis Discharge Diagnosis (1) Diabetic ketoacidosis associated with type 2 diabetes mellitus: Status: Resolved (2) Acute kidney injury (nontraumatic): Status: Resolved (3) Dehydration: Status: Resolved (4) Schizophrenia: Status: Chronic (5) DVT prophylaxis: Status: Acute (6) Discharge planning issues: Status: Acute Discharge Plan Disposition Patient Disposition: [facility] Condition: Stable Discharge Details Reason For Visit: DKA Admit Date/Time: 12/08/21 15:17 Admit Provider: Sylvester Newberry Attending Provider: Sylvester Newberry Primary Care Provider: Radha BrooksJefferson [facility] Hospital Course Hospital Course: 51-year-old white male with history of schizophrenia who was treated with Abilify and Vraylar who was referred to emergency room via EMS after his assembly hand called for evaluation.? He has had decades history of auditory visual hallucinations but his hallucinations were getting so bad that his assembly hand felt he needed emergency evaluation.? Upon arrival emergency department he was responding to external stimulation.? He was not presenting any danger to himself or to those around him.? Medical screening was performed because the patient be given a small dose of Ativan.? Laboratory evaluation showed him to be in DKA with a glucose of 640 anion gap of 23 along with acute kidney injury with a BUN of 37 creatinine 2.3.? He was started on IV fluids and insulin drip is now admitted to the intensive care unit for treatment of DKA.? I am unable to get a medical history out of the patient as he gives me that 1000 yard stare and stutters.? Initially when I asked him if he takes insulin he said he did not know but that he later said he does not take any insulin for his diabetes mellitus.? When asked if he takes any psychiatric medications for bipolar disorder or schizophrenia or depression he was unable to answer me.? This started to say something that he will stutter that he will stop talking and just stare at me.? He has his guitar on his bed with him he does admit that he likes to play songs but could not name any songs to me.? My started do a review of systems he started tell me that Clifton Pedro has created a satellite system to invade people's minds and take over their mind control and that there are invisible robots trying to kill people. Insulin drip initiated with success in controlling his blood glucose. Basal/bolus insulin then initiated. The patient intermittently refused medications including insulin. He also i ntermittently refused glucose monitoring and lab draws. His compliance did improve. Given concerns for his ability to administered insulin and monitor his glucose, and to be compliant, he was trialled off of insulin and metformin and Jardiance initiated and titrated to maximum dosing. He tolerated the new medications well and his blood glucose levels were in the low 100's to low 200's. Certainly dietary concerns exist and could complicate his glucose control. Discharging to care bed with home health nursing and formerly [facility] mental health monitoring. PCP f/u in 1 week. Home Meds and New Rx's Prescriptions: New Jardiance 25 mg Tablet 25 mg PO QAM Qty: 30 0RF metformin 1,000 mg tablet 1,000 mg PO BID Qty: 60 0RF (DME) blood-glucose meter [OneTouch Ultra2 Meter] Kit See Rx Instructions .Route Qty: 1 0RF Rx Instructions: BID glucose monitoring (DME) OneTouch Ultra Test Strip See Rx Instructions .Route Qty: 100 0RF Rx Instructions: BID glucose monitoring (DME) lancets [Lancets,Ultra Thin] Misc See Rx Instructions .Route Qty: 100 0RF Rx Instructions: TID glucose monitoring (DME) lancets [OneTouch UltraSoft Lancets] Misc See Rx Instructions .Route Qty: 100 0RF Rx Instructions: BID glucose monitoring Continued aripiprazole 30 mg tablet 1 tab PO DAILY Vraylar 6 mg capsule 1 cap PO HS diazepam 5 mg tablet 5 mg PO DAILY Discharge Instructions Stand Alone Forms: Nursing Discharge Form Referrals: Katy Brooks [Primary Care Provider] - 12/18/21 1:00 pm Activity:: Activity as Tolerated Equipment/Supplies:: Blood Glucose Monitor Diet:: Carb controlled. Discharge Orders Discharge Orders: Discharge Order (Routine); Ordered 12/17/21 Ordered By: Margarito Rao Discharge Data Discharge Date/Time-TO BE ENTERED AT DEPARTURE: 12/17/21 10:51 DS: Summary Time Spent with Patient providing and/or coordinating discharge services: Greater than 30 minutes Status at Discharge Functional status at discharge: independent ambulation Overall status at discharge: patient is back to baseline Mental Status: other (A&O. Insight to his medical conditions is poor. ) Speech and Movement: speech clear Mood: euthymic mood and other (A&O. Insight to his medical conditions is poor. ) Affect: blunted Exam Narrative Exam Narrative: General:Lying in bed. Conversant. NAD. HEENT: EOMI, sclera clear. Heart: RRR, no murmur Lungs: CTAB Abdomen: soft, nontender, nondistended Extremities: no visible edema BLEs. No calf tenderness. Psych Mental Status: other (A&O. Insight to his medical conditions is poor. ) Speech and Movement: speech clear Mood: euthymic mood and other (A&O. Insight to his medical conditions is poor. ) Affect: blunted DS: Data Vitals/I&O Vitals and I&O: Vital Signs Temperature 36.6 C 12/17/21 07:54 Temperature Source Tympanic 12/17/21 07:54 Pulse 94 H 12/17/21 07:54 Pulse Rhythm Regular 12/17/21 01:00 Pulse 104 H 12/10/21 09:50 Respiratory Rate 18 12/17/21 07:54 Respiratory Effort Non-Labored 12/17/21 01:00 Respiratory Depth Normal 12/17/21 01:00 Respiratory Pattern Normal 12/17/21 01:00 Blood Pressure 116/77 12/17/21 07:54 Blood Pressure Mean 109 12/14/21 01:14 Blood Pressure Position Supine 12/10/21 07:45 Pulse Oximetry 96 12/17/21 07:54 Oxygen Delivery Method Room Air 12/17/21 07:54 Oxygen Flow Rate 0 12/17/21 07:54 Pain Level 5 12/17/21 07:54 Comment 12/10/21 11:20 Intake & Output 12/16/21 12/16/21 12/17/21 11:59 23:59 11:59 Intake Total 800 / 2600 1800 / 2600 600 / 600 Output Total 425 / 425 Balance 800 / 2175 1375 / 2175 600 / 600 Weight 102.8 kg Intake: Oral 800 / 2600 1800 / 2600 600 / 600 Output: Urine 425 / 425 Other: Urine Appearance Clear Comment pT voided independently in the toilet. Stool Size Moderate Moderate Stool Characteristics Soft Soft Formed Voiding Methods Toilet Toilet Toilet Data Completed and Pending Labs on day of discharge: Labs from last 24 hours 12/17/21 09:26 COVID-19 Source Pending SARS-CoV-2 (PCR) Pending [facility] All Active Problems Discharge planning issues (Acute) DVT prophylaxis (Acute) Schizophrenia (Chronic) Social History Smoking/Tobacco Use Status: Never Smoking risk assessment performed?: Yes Substance use type: does not use Additional Social history: pt not speaking at this time
[2021-12-17 09:55] LABS: Source Nasal/Nares
[2021-12-17 10:27] LABS: COVID-19 PCR Negative (Negative)
--- NOTE | 2021-12-17 10:40 | PDOC.HHF2F_ITS ---
Home Health Certification Home Health Certification: 1. Encounter Date and Reason I certify that Isiah Curran was seen by Margarito Rao MD on 12/17/21 and that I had a [id number] encounter with this patient that meets the physician face to face encounter requirements. 2. Clinical Findings Supporting Skilled Need and Homebound Status I certify that home health services are medically necessary, include either intermittent senior living and/or physical/speech therapy, and that this patient is homebound in that absences from the home require considerable and taxing effort and are infrequent or of short duration, or are attributable to the need to receive medical care. [X] (a) Attached documentation from encounter provides clinical findings supporting skilled need and homebound status (including what assistance patient requires to leave the home). The encounter with the patient was in whole, or in part, for the following medical condition, which is the primary reason for home health care: DKA Alf:Monitor and assess exacerbation of medical condition, teaching of new medication regimen, monitor and instruct on diabetic diet. Physical Therapy: Speech Therapy: Homebound:Patient has an intermittently unstable mental status and is unable to leave home unsupervised. 3. Certification and Authentication I certify that I composed the above information based on my clinical judgement relating to this patient's medical condition and, if applicable, clinical findings communicated to me by the NPP or inpatient physician who performed the Home Health Referral. All further orders will be obtained through Katy Brooks (Community Based Physician - PCP)
--- NOTE | 2021-12-17 19:00 | CMDISCH_ITS ---
- If Service Date Differs Date of service: 12/17/21 Time of Service: 19:01 LACE Index Scoring Tool - Questions: Length of Stay (in days): 7 - 13 Acuity (Admit via E.D.?): Yes Comorbidities: Diabetes w/o Complication E.D. Visits: 1 - Answers: Total Score: 10 Risk of Readmission: High Risk Care Management Discharge Reason for Hospitalization: DKA Discharge Plan: Isiah Rice went to the [facility] Care Bed today, coordinated by [facility] ENTRY LEVEL BUSINESS ANALYST. His case management manager, Lindsay transported him there via private vehicle. He will have new HH RN for diabetes management while at the care bed, which will transition to his home once he is ready for discharge home. CM sent a referral to [facility] for insurance support in order to see if he qualifies for [facility] as a secondary to MCR, as he has new medications for his diabetes, and may require a higher level of care at some point. CM discussed this with Lindsay, to ensure community follow up. He will follow up with his PCP and discharge plan of care. Patient/Family Education Needs: Review discharge instructions and limitations, discussion of self care needs including ask me three. Services Needed at Discharge: Home Health Care Services (HH RN) - Disposition Disposition: Crisis Bed ([facility] care bed) Transport via of: Private Vechicle (ENTRY LEVEL BUSINESS ANALYST transported)
== END 2021-12-17 10:51 | disposition designated cancer center or children's hospital (05) | DRG 638 ==
LOC: ER 15:26 → ICU 16:20 → MS 12-14 08:14
PROVIDERS: Family Medicine; Internal Medicine; Admitting Provider Internal Medicine; Emergency Provider Emergency Medicine; PCP Nurse Practitioner Family; Visit Provider Internal Medicine
DX: E11.10 Type 2 diabetes mellitus with ketoacidosis without coma (principal); N17.9 Acute kidney failure, unspecified; Z91.14 Patient's other noncompliance with medication regimen; E86.0 Dehydration; F20.9 Schizophrenia, unspecified; E66.9 Obesity, unspecified; Z68.33 Body mass index [BMI] 33.0-33.9, adult; Z66 Do not resuscitate
CPT/HCPCS: 36410; 36415; 36416; 80048; 80053; 80307; 82805; 82962; 87635; 93005; 96360; 96361; 99284; 99285; J1650; 80320; 80329; 81003; 81015; 83036; 83735; 84100; 84443; 84484; 85025; 93010; 99232; 99239; 99291; J3480; J3490

== ENCOUNTER 2021-12-18 22:25 | Outpatient (REF) | payer MEDICARE, MEDICAID, SELFPAY ==
[2021-12-20 15:15] LABS: Chlamydia Result Negative (Negative); GC Result Negative (Negative)
== END 2021-12-18 22:26 | disposition home or self-care (01) ==
LOC: NCHCN 22:25
PROVIDERS: PCP Nurse Practitioner Family; Visit Provider Physician Assistant
DX: Z20.2 Contact with and (suspected) exposure to infections with a predominantly sexual mode of transmission (principal)
CPT/HCPCS: 87491; 87591

== ENCOUNTER 2021-12-24 20:40 | Inpatient (IN) | payer MEDICARE, MEDICAID, SELFPAY ==
[2021-12-24 20:55] VITALS: BP 145/111; PULSE 121; RESP 20; TEMP 36.4; O2SAT 98
--- NOTE | 2021-12-24 22:10 | W.ED.GENAD ---
Discharge Plan Disposition Patient Disposition: STILL A PATIENT Condition: Stable Discharge Details Chief Complaint: PsychEval Primary Care Provider: Katy Brooks ED Provider: Margarito Dueñas Home Meds and New Rx's Prescriptions: No Action aripiprazole 30 mg tablet 1 tab PO DAILY Vraylar 6 mg capsule 1 cap PO HS diazepam 5 mg tablet 5 mg PO DAILY Jardiance 25 mg Tablet 25 mg PO QAM Qty: 30 0RF metformin 1,000 mg tablet 1,000 mg PO BID Qty: 60 0RF (DME) blood-glucose meter [OneTouch Ultra2 Meter] Kit See Rx Instructions .Route Qty: 1 0RF Rx Instructions: BID glucose monitoring (DME) OneTouch Ultra Test Strip See Rx Instructions .Route Qty: 100 0RF Rx Instructions: BID glucose monitoring (DME) lancets [Lancets,Ultra Thin] Misc See Rx Instructions .Route Qty: 100 0RF Rx Instructions: TID glucose monitoring (DME) lancets [OneTouch UltraSoft Lancets] Misc See Rx Instructions .Route Qty: 100 0RF Rx Instructions: BID glucose monitoring quetiapine 100 mg tablet 100 mg PO DAILY Probiotic 100 billion cell Capsule 1 cap PO DAILY Medical Decision Making 59-year-old male history of schizophrenia, diabetes, presents brought in by PD after warrant was issued for patient to be brought in for medical and mental health evaluation in the setting of worsening aggressive behavior delusions homicidal threats and poor self-care. Patient has noticeable aggression on arrival, verbally confrontational, refusing to participate with history and physical, noted to be tachycardic on arrival. No external signs of trauma. Given concern for medical and or psychiatric illness patient will need full evaluation. As he is not allowing us to proceed with further examination and work-up and is becoming increasingly aggressive, patient will be given Haldol Ativan and Benadryl for his safety and safety of the staff to proceed with further medical evaluation. Must consider component of metabolic derangement such as DKA versus dehydration versus infectious process. Highly likely primary psychiatric illness untreated schizophrenia. Patient will benefit from inpatient psychiatric treatment 00: 59 patient did have desaturation event to 60% on room air, responded to jaw thrust and physical stimuli, patient arousable speaking to us, saturation improved to 99% on room air. Have elevated head of bed further and propped up patient's back; likely component of obstructive sleep apnea. 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 HPI Narrative: 51-year-old male history of schizophrenia, diabetes, brought in in police custody after court order for evaluation for acute mental health decompensation due to delusions hallucinations aggressive behavior and poor self-care. Patient uncooperative with staff regarding history and physical. Related Data Home Medications Medication Instructions Recorded Confirmed aripiprazole 30 mg tablet 1 tab PO DAILY 12/08/21 12/08/21 cariprazine 6 mg capsule (Vraylar) 1 cap PO HS 12/08/21 12/08/21 diazepam 5 mg tablet 5 mg PO DAILY 12/08/21 12/24/21 blood sugar diagnostic (OneTouch #100 ea 12/17/21 Ultra Test strips) blood-glucose meter (OneTouch #1 ea 12/17/21 Ultra2 Meter kit) empagliflozin 25 mg tablet 25 mg PO QAM #30 tabs 12/17/21 (Jardiance) lancets (Lancets,Ultra Thin) #100 ea 12/17/21 lancets (OneTouch UltraSoft #100 ea 12/17/21 Lancets) metformin 1,000 mg tablet 1,000 mg PO BID #60 tabs 12/17/21 Lactobacillus 40-Bifidobact 1 cap PO DAILY 12/24/21 12/24/21 3-S.thermophilus 100 billion cell capsule (Probiotic) quetiapine 100 mg tablet 100 mg PO DAILY 12/24/21 12/24/21 Previous Rx's Medication Instructions Recorded blood sugar diagnostic (OneTouch #100 ea 12/17/21 Ultra Test strips) blood-glucose meter (OneTouch #1 ea 12/17/21 Ultra2 Meter kit) empagliflozin 25 mg tablet 25 mg PO QAM #30 tabs 12/17/21 (Jardiance) lancets (Lancets,Ultra Thin) #100 ea 12/17/21 lancets (OneTouch UltraSoft #100 ea 12/17/21 Lancets) metformin 1,000 mg tablet 1,000 mg PO BID #60 tabs 12/17/21 Allergies Allergy/AdvReac Type Severity Reaction Status Date / Time No Known Allergies Allergy Unverified 12/24/21 21:00 General Stated Complaint: PsychEval HAYLEE: 2 Review of Systems Narrative: Review of Systems Constitutional: negative Eyes: negative ENT: negative Cardiovascular: negative Respiratory: negative Gastrointestinal: negative : negative Musculoskeletal: negative Skin: negative Neurologic: negative Psych: Agitation, delusions, aggression PFSH All Active Problems (Updated 12/18/21 @ 00:09 by SIDDHARTH OLSEN) Schizophrenia (Chronic) Social History Smoking/Tobacco Use Status: Never Smoking risk assessment performed?: Yes Alcohol Intake: current Substance use type: does not use Additional Social history: pt not speaking at this time; pt is rambling, unable to accurately answer Exam Narrative Exam Narrative: Physical Examination General: alert, awake, uncooperative verbally aggressive HEENT: normocephalic, atraumatic; PERRL, EOM intact, conjunctiva normal; no nasal discharge; moist mucous membranes, oral and pharyngeal mucosa normal, tolerating secretions Neck: supple, trachea midline; full ROM Chest: normal to inspection Respiratory: normal respiratory effort, speaking in full sentences, clear to auscultation, no wheezing, rales or rhonchi Cardiac: regular rate, regular rhythm, S1S2 intact, no murmurs rubs or gallops GI: abdomen soft, non-tender, non-distended; no palpable mass or hepatosplenomegaly Skin: no lesions, rashes or trauma appreciated Neuro: AAOx3, normal speech, moving all extremities Psych: Psychomotor agitation, aggression, delusions Course Vital Signs Vital signs: Vital Signs Temperature 36.4 C L 12/24/21 20:55 Pulse 121 H 12/24/21 20:55 Respiratory Rate 12/24/21 20:55 Blood Pressure 145/111 H 12/24/21 20:55 Pulse Oximetry 98 12/24/21 20:55 Temperature 36.4 C L 12/24/21 20:55 Temperature Source Tympanic 12/24/21 20:55 Pulse 121 H 12/24/21 20:55 Respiratory Rate 12/24/21 20:55 Respiratory Effort Non-Labored 12/24/21 21:01 Blood Pressure 145/111 H 12/24/21 20:55 Pulse Oximetry 98 12/24/21 20:55
--- NOTE | 2021-12-24 22:20 | PDOC.MHCN_ITS ---
Date of service: 12/24/21 Time of Service: 21:00 Mental Health Emergency Note Release [facility] release signed:: No Reason for Visit Mental health warrant for psychosis symptoms including hallucinations and/or delusions. Client is refusing all his medications and diabetic medication. In the last 2 weeks has the pt presented for ES prior to today?: Yes, presented at (Client was seen at [facility] and transported to the Carebed for hospital diversion. Client carebed stay did not go as planned. Client is in need of a higher level of care. 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 (Client made verbal threats to kill others, when appearing to be frustrated. Client has no history of physical agression according to his chart. ) Intent: No Plan: no, does not have a plan. History of becoming violent with another person(any age): no history of violence with others. Risk: Does risk to harm exist?: yes. Access to means: No. Risk: Moderate Risk Duty to warn indicated: No Asssessment/Mental Status Appearance: Disheveled and Poor hygiene Attitude: Demanding, Guarded and Hostile Behavior: Agitated Speech: Pressured Affect: Cogruent with mood Mood: Elevated, Stressed and Angry Thought process: Racing and Flight of ideas Hallucinations: yes, Auditory Delusions: yes, Persectory/Paranoid and Bizarre Attention: Wandering Perception: Derealization Orientation: Disoriented in Time and Situation Memory: Impaired in: Immediate Insight: Poor Judgement: Poor Neurovegetative Symptoms Sleep: Decrease Appetitie: Decrease Interests: No change Energy: No change Libido: Not applicable Substance Use: Have you used substances in the last 7 days?: yes, Client appears to be experiencing constant hallucinations/delusions. Additional Issues: Assaultive/Threatening Behavior: Yes Medical Concerns: Yes Client engaged in active self harm w/weapon: No Threatening to run away: No Child reported abuse/neglect: No Voluntarily presenting for services: No Domestic violence is a concern: No Extreme Psychosis or extreme behavior is present: Yes Impression Client presents a person in need of treatment. Please refer to warrant for more information. Resources Reosurces reviewed and given:: [facility] Plan/Disposition Recommended Disposition: Hospitalization ([facility] is aware. Client is awaiting second cert. ) facilities contacted and Psych Screening. Plan: Client will wait at [facility] for a second cert by psychiatrist to determine whether or not he meets criteria for inpatient treatment. Please refer to warrant for more information. Person reported agreement to plan: No Reports/communication Outcome discussed with: ED/Personnel Final Disposition/Discharge Final accepting facility/transferred to: Other (TBD- Waiting for clients second cert by psychiatrist. ) Transportation Checklist completed and faxed: No Transport level: [facility]
[2021-12-24 22:44] LABS: Abs Immature Grans 0.03 10^3/uL (0.0-0.06); Absolute Basophil Count 0.04 10^3/uL (0.0-0.2); Absolute Eosinophil Count 0.08 10^3/uL (0.0-0.7); Absolute Lymphocyte Count 1.34 10^3/uL (1.2-3.4); Absolute Monocyte Count 0.74 10^3/uL (0.1-0.8); Absolute Neutrophil Count 5.45 10^3/uL (1.2-6.7); Basophils % 0.5; HCT 43.5 % (40.0-50.0); HGB 15.2 g/dL (13.5-17.5); Immature Grans % 0.4; Lymphocytes % 17.4; MCHC 34.9 % (32.0-36.0); MCV 89 fL (80-95); MPV 9.6 fL (8.0-11.0); Monocytes % 9.6; Neutrophils % 71.1; Platelet Count 307 10^3/uL (130-400); RBC 4.91 10^6/uL (4.36-5.78); RDW 11.5 % (11.8-14.1); RDW-SD 36.6 fL; WBC 7.68 10^3/uL (4.4-10.8)
[2021-12-24 22:48] LABS: BE (Venous) -4 mmol/L (-2-3); HCO3 (Venous) 21 mmol/L (23-28); O2 Sat (Venous) 75 %; TCO2 (Venous) 19 mmol/L (24-29); pCO2 (Venous) 35 mmHg (41-51); pH (Venous) 7.39 (7.31-7.41); pO2 (Venous) 40 mmHg
[2021-12-24] MEDS: diphenhydrAMINE 50 MG/ML VIAL 25 MG IVP (22:53)
[2021-12-24] MEDS: Haloperidol 5 MG/ML VIAL IM (22:53)
[2021-12-24] MEDS: LORazepam 20 MG/10 ML VIAL IVP (22:53)
[2021-12-24] MEDS: Normal Saline 500 ML 1000 ML IV (22:54)
[2021-12-24 22:57] LABS: ALT 24 U/L (16-63); AST 18 U/L (15-37); Albumin 3.9 g/dL (3.4-5.0); Alkaline Phosphatase 90 U/L (46-116); Anion Gap 14.1 mmol/L (3-11); BUN 24 mg/dL (7-18); Bilirubin, Total 0.5 mg/dL (0.2-1.0); CO2 22.9 mmol/L (21.0-32.0); CREATININE 1.4 mg/dL (0.70-1.30); Calcium 9.4 mg/dL (8.5-10.1); Chloride 99 mmol/L (98-107); Estimated GFR 61.23 (mL/min/1.73m2); Glucose 285 mg/dL (74-106); Lipase 49 U/L (73-393); Potassium 4.2 mmol/L (3.5-5.1); Sodium 136 mmol/L (136-145); Total Protein 8.1 g/dL (6.4-8.2); Troponin I < 50 ng/L (<or=60)
[2021-12-24 22:58] LABS: Salicylate < 2.8 mg/dL (<2.8)
[2021-12-24 23:03] LABS: TSH (W/Ref FT4) 1.03 uIU/mL (0.36-3.74)
[2021-12-24 23:12] LABS: ETHANOL BLOOD < 3.0 mg/dL (<10)
[2021-12-24 23:24] VITALS: PULSE 99; O2SAT 94
--- NOTE | 2021-12-24 23:42 | NUR.NOTE ---
At 2325 RN asked to obtain HR and O2 every hour until its normal. Nursing Note:
[2021-12-25] VITALS (38 sets, daily range): BP systolic 142; BP diastolic 90; PULSE 57–104; RESP 18; TEMP 36.5; O2SAT 60–100
--- NOTE | 2021-12-25 00:02 | NUR.NOTE ---
RN in room disconnected IV and performed COVID swab. Patient appeared to sleep through the COVID swabbing. Nursing Note:
[2021-12-25 00:17] LABS: Source Nasal/Nares
[2021-12-25 00:48] LABS: COVID-19 PCR Negative (Negative)
[2021-12-25 01:23] LABS: Troponin I < 50 ng/L (<or=60)
--- NOTE | 2021-12-25 09:07 | PDOC.CMSAFED ---
- If Service Date Differs Date of service: 12/25/21 Time of Service: 09:07 Care Management Safety Plan Status: Involuntary - Reason for Wait Reason for Wait: Other (2nd Certification by Psychiatrist) INVOLUNTARY FOR INPATIENT PSYCHIATRIC STABILIZATION. A huddle is held at 9:[address] Kevyn Contreras, ED provider, Ashley, Nursing Wine Fermenter, VISHNU Schulte, and SUNI Garg, in attendance. Safety plan has been established to meet the needs of the patient, and consideration of the care team, to adhere to patient goals, identify restrictions based on behavioral status, address nutrition, and determine allowed personal belongings, tools for hygiene and personal care. Determine level of activity including ambulation, level of supervision, visitors, and determine privileges based on behaviors and level of engagement by pt. SAFETY PLAN: 1. Will remain on SI/HI precautions. In Paper Clothes. 2. Will remain in room under direct supervision of one-on-one staff at all times provided by [employer], [place], SHOE SEWING MACHINE OPERATOR AND TENDER senior oracle database administrator. 3. May have paper cups, plates, finger foods as well as a cardboard spoon for meals. 4. Follow [facility] Management of the Admitted Behavioral Health Patient policy. 5. Comfort bath system only. 6. No personal belongings 7. Visitors: None at this time. 8. Activities: Soft cart activities, television and other activities at RN discretion. 9. Bathroom privileges with escort. 10. Phone: Limited to legal contacts at this time, via [facility] phone and at RN discretion. 11. Due to INVOLUNTARY status, patient is being held at [facility] by the Department of Mental Health ([facility]) until 2nd certification by [facility] Psychiatrist can be performed (within 24 hours). Staff will provide de-escalation support (CPI) as needed. If patient wishes to leave [facility], staff will contact [facility] Crisis Screener ([phone]) and On-Call Export Freight Clerk ([phone]) as soon as possible. In the event of elopement, notify [place] [employer] ([phone]). Patient is currently involuntarily at [facility]. [facility] Frontline Custom Clothier will continue seeking placement. Please contact the Electrical Accessories Assembler Export Freight Clerk ([phone]) for any needed changes to Safety Plan. Safety plan has been provided to interdepartmental care team. Patient will be transported by stull hewer at time of discharge.
--- NOTE | 2021-12-25 09:59 | PDOC.ERCMPRO ---
- If Service Date Differs Date of service: 12/25/21 Time of Service: 09:59 Care Management Progress Note S/O: Isiah, who prefers to be called Dwayne, was brought to [facility] by police after [facility] obtained a Warrant for Emergency Examination. The Warrant states that Dwayne has been refusing prescribed medications and voluntary treatment options and describes Dwayne as delusional, exhibiting disorganized thinking, and tangential speech. Dwayne is lying in bed when CM comes to meet with him today. He easily engages in conversation but his speech is pressured and difficult to interrupt. He reports experiencing auditory hallucinations and says robot voices are speaking to him and giving him a headache. His thought process is tangential. Dwayne receives services through the [facility] Program at [facility]. A: Dwayne is a 51 year old male who presents in the ED for a psychiatric evaluation. P: Referrals are faxed to [facility] and [facility] for review. Dwayne will remain at [facility] and will be reassessed twice daily by [facility] until a placement is secured for him. A 2nd Certification by Psychiatrist is expected to occur this evening. CM will continue to follow. - MH Services (Omit if N/A) Current MH Services: [facility]Y [facility] - Status Status: Involuntary - Reason for Wait Reason for Wait: Other (2nd Certification by Psychiatrist)
[2021-12-25 11:33] LABS: Bilirubin Small (Negative); Blood Negative (Negative); Clarity Clear (Clear); Glucose 500 mg/dL (Negative); Ketones 40 mg/dL (Negative); Leukocyte Esterase Negative (Negative); Nitrite Negative (Negative); Specific Gravity >= 1.030 (1.005-1.025); Urobilinogen 0.2 EU/dL (Up TO 0.2)
[2021-12-25 11:58] LABS: *AMPHETAMINES SCREEN URINE Negative (Negative); *BARBITURATES SCREEN URINE Negative (Negative); *BENZODIAZEPINES SCREEN URINE Positive (Negative); Cannabinoids THC Negative (Negative); Cocaine Screen,Urine Negative (Negative); METHADONE URINE SCREEN Negative (Negative); OPIATES URINE SCREEN Negative (Negative)
[2021-12-25 12:03] LABS: Tricyclic Antidepressants Negative (Negative)
[2021-12-25] MEDS: Empaglifozin 25 MG TAB PO (12:48)
--- NOTE | 2021-12-25 16:19 | NUR.NOTE ---
multiple attempts during this shift to try and get patient to take medications Nursing Note:
--- NOTE | 2021-12-25 16:19 | W.EDPROG ---
Date of service: 12/25/21 Time of Service: 16:19 Medical Decision Making Care signed out to me by Dr. Ricky Robles with plan to await second certification. Patient was stable overnight. Med reconciliation was performed today and I ordered patient's prescribed medications as scheduled. Patient did refuse to take medication earlier today other than Jardiance. Repeat fingerstick at 4:25 PM was 209. Patient is refusing to take his metformin. Awaiting evaluation for second certification by state psychiatrist. Lab Data Lab results reviewed: Yes I reviewed the patient's lab results. Labs: Laboratory Tests Range/Units 12/24/21 12/24/21 12/24/21 21:30 21:30 21:30 WBC (4.4-10.8) 10^3/uL RBC (4.36-5.78) 10^6/uL Hgb (13.5-17.5) g/dL Hct (40.0-50.0) % MCV (80-95) fL MCH (27.0-33.0) pg MCHC (32.0-36.0) % RDW (11.8-14.1) % Plt Count (130-400) 10^3/uL MPV (8.0-11.0) fL Immature Gran % Neutrophils % Lymphocytes % Monocytes % Eosinophils % Basophils % Nucleated RBC % (0.0-0.3) % Absolute Neutrophils (1.2-6.7) 10^3/uL Absolute Lymphocytes (1.2-3.4) 10^3/uL Absolute Monocytes (0.1-0.8) 10^3/uL Absolute Eosinophils (0.0-0.7) 10^3/uL Absolute Basophils (0.0-0.2) 10^3/uL VBG pH (7.31-7.41) VBG pCO2 (41-51) mmHg VBG pO2 mmHg VBG HCO3 (23-28) mmol/L VBG Total CO2 (24-29) mmol/L VBG O2 Saturation % VBG Base Excess (-2-3) mmol/L Sodium (136-145) mmol/L 136 Potassium (3.5-5.1) mmol/L 4.2 Chloride (98-107) mmol/L 99 Carbon Dioxide (21.0-32.0) mmol/L 22.9 Anion Gap (3-11) mmol/L 14.1 H BUN (7-18) mg/dL 24 H Creatinine (0.70-1.30) mg/dL 1.4 H Est GFR (CKD-EPI 2020) (mL/min/1.73m2) 61.23 Glucose (74-106) mg/dL 285 H Calcium (8.5-10.1) mg/dL 9.4 Total Bilirubin (0.2-1.0) mg/dL 0.5 AST (15-37) U/L 18 ALT (16-63) U/L 24 Alkaline Phosphatase (46-116) U/L 90 Troponin I (<or=60) ng/L < 50 Total Protein (6.4-8.2) g/dL 8.1 Albumin (3.4-5.0) g/dL 3.9 Lipase (73-393) U/L 49 TSH (0.36-3.74) uIU/mL 1.03 Urine Color (Yellow) Urine Clarity (Clear) Urine pH (5-8) Ur Specific [place] (1.005-1.025) Urine Protein (Negative) mg/dL Urine Ketones (Negative) mg/dL Urine Blood (Negative) Urine Nitrite (Negative) Urine Bilirubin (Negative) Urine Urobilinogen (Up TO 0.2) EU/dL Ur Leukocyte Esterase (Negative) Urine Glucose (Negative) mg/dL Salicylates (<2.8) mg/dL < 2.8 Urine Opiates Screen (Negative) Urine Methadone Screen (Negative) Ur Barbiturates Screen (Negative) Ur Tricyclics Screen (Negative) Ur Amphetamines Screen (Negative) U Benzodiazepines Scrn (Negative) Urine Cocaine Screen (Negative) Ur THC Screen (Negative) Ethyl Alcohol (<10) mg/dL < 3.0 COVID-19 Source SARS-CoV-2 (PCR) (Negative) Range/Units 12/24/21 12/24/21 12/25/21 21:30 22:45 00:03 WBC (4.4-10.8) 10^3/uL 7.68 RBC (4.36-5.78) 10^6/uL 4.91 Hgb (13.5-17.5) g/dL 15.2 Hct (40.0-50.0) % 43.5 MCV (80-95) fL 89 MCH (27.0-33.0) pg 31.0 MCHC (32.0-36.0) % 34.9 RDW (11.8-14.1) % 11.5 L Plt Count (130-400) 10^3/uL 307 MPV (8.0-11.0) fL 9.6 Immature Gran % 0.4 Neutrophils % 71.1 Lymphocytes % 17.4 Monocytes % 9.6 Eosinophils % 1.0 Basophils % 0.5 Nucleated RBC % (0.0-0.3) % 0.0 Absolute Neutrophils (1.2-6.7) 10^3/uL 5.45 Absolute Lymphocytes (1.2-3.4) 10^3/uL 1.34 Absolute Monocytes (0.1-0.8) 10^3/uL 0.74 Absolute Eosinophils (0.0-0.7) 10^3/uL 0.08 Absolute Basophils (0.0-0.2) 10^3/uL 0.04 VBG pH (7.31-7.41) 7.39 VBG pCO2 (41-51) mmHg 35 L VBG pO2 mmHg 40 VBG HCO3 (23-28) mmol/L 21 L VBG Total CO2 (24-29) mmol/L 19 L VBG O2 Saturation % 75 VBG Base Excess (-2-3) mmol/L -4 L Sodium (136-145) mmol/L Potassium (3.5-5.1) mmol/L Chloride (98-107) mmol/L Carbon Dioxide (21.0-32.0) mmol/L Anion Gap (3-11) mmol/L BUN (7-18) mg/dL Creatinine (0.70-1.30) mg/dL Est GFR (CKD-EPI 2020) (mL/min/1.73m2) Glucose (74-106) mg/dL Calcium (8.5-10.1) mg/dL Total Bilirubin (0.2-1.0) mg/dL AST (15-37) U/L ALT (16-63) U/L Alkaline Phosphatase (46-116) U/L Troponin I (<or=60) ng/L Total Protein (6.4-8.2) g/dL Albumin (3.4-5.0) g/dL Lipase (73-393) U/L TSH (0.36-3.74) uIU/mL Urine Color (Yellow) Urine Clarity (Clear) Urine pH (5-8) Ur Specific [place] (1.005-1.025) Urine Protein (Negative) mg/dL Urine Ketones (Negative) mg/dL Urine Blood (Negative) Urine Nitrite (Negative) Urine Bilirubin (Negative) Urine Urobilinogen (Up TO 0.2) EU/dL Ur Leukocyte Esterase (Negative) Urine Glucose (Negative) mg/dL Salicylates (<2.8) mg/dL Urine Opiates Screen (Negative) Urine Methadone Screen (Negative) Ur Barbiturates Screen (Negative) Ur Tricyclics Screen (Negative) Ur Amphetamines Screen (Negative) U Benzodiazepines Scrn (Negative) Urine Cocaine Screen (Negative) Ur THC Screen (Negative) Ethyl Alcohol (<10) mg/dL COVID-19 Source Nasal/Nares SARS-CoV-2 (PCR) (Negative) Negative Range/Units 12/25/21 12/25/21 12/25/21 00:57 11:24 11:24 WBC (4.4-10.8) 10^3/uL RBC (4.36-5.78) 10^6/uL Hgb (13.5-17.5) g/dL Hct (40.0-50.0) % MCV (80-95) fL MCH (27.0-33.0) pg MCHC (32.0-36.0) % RDW (11.8-14.1) % Plt Count (130-400) 10^3/uL MPV (8.0-11.0) fL Immature Gran % Neutrophils % Lymphocytes % Monocytes % Eosinophils % Basophils % Nucleated RBC % (0.0-0.3) % Absolute Neutrophils (1.2-6.7) 10^3/uL Absolute Lymphocytes (1.2-3.4) 10^3/uL Absolute Monocytes (0.1-0.8) 10^3/uL Absolute Eosinophils (0.0-0.7) 10^3/uL Absolute Basophils (0.0-0.2) 10^3/uL VBG pH (7.31-7.41) VBG pCO2 (41-51) mmHg VBG pO2 mmHg VBG HCO3 (23-28) mmol/L VBG Total CO2 (24-29) mmol/L VBG O2 Saturation % VBG Base Excess (-2-3) mmol/L Sodium (136-145) mmol/L Potassium (3.5-5.1) mmol/L Chloride (98-107) mmol/L Carbon Dioxide (21.0-32.0) mmol/L Anion Gap (3-11) mmol/L BUN (7-18) mg/dL Creatinine (0.70-1.30) mg/dL Est GFR (CKD-EPI 2020) (mL/min/1.73m2) Glucose (74-106) mg/dL Calcium (8.5-10.1) mg/dL Total Bilirubin (0.2-1.0) mg/dL AST (15-37) U/L ALT (16-63) U/L Alkaline Phosphatase (46-116) U/L Troponin I (<or=60) ng/L < 50 Total Protein (6.4-8.2) g/dL Albumin (3.4-5.0) g/dL Lipase (73-393) U/L TSH (0.36-3.74) uIU/mL Urine Color (Yellow) Yellow Urine Clarity (Clear) Clear Urine pH (5-8) 6.0 Ur Specific [place] (1.005-1.025) >= 1.030 H Urine Protein (Negative) mg/dL Negative Urine Ketones (Negative) mg/dL 40 H Urine Blood (Negative) Negative Urine Nitrite (Negative) Negative Urine Bilirubin (Negative) Small H Urine Urobilinogen (Up TO 0.2) EU/dL 0.2 Ur Leukocyte Esterase (Negative) Negative Urine Glucose (Negative) mg/dL 500 H Salicylates (<2.8) mg/dL Urine Opiates Screen (Negative) Negative Urine Methadone Screen (Negative) Negative Ur Barbiturates Screen (Negative) Negative Ur Tricyclics Screen (Negative) Negative Ur Amphetamines Screen (Negative) Negative U Benzodiazepines Scrn (Negative) Positive A Urine Cocaine Screen (Negative) Negative Ur THC Screen (Negative) Negative Ethyl Alcohol (<10) mg/dL COVID-19 Source SARS-CoV-2 (PCR) (Negative) Sign Out Sign Out Data: Sign Out Comment: schizophrenia, here for disorganized behavior, and HI; required sedation for medical eval and safety; EE, awaiting second cert Last updated by Disabatino,Margarito, MD at 12/25/21 07:04 Discharge Plan Disposition Patient Disposition: STILL A PATIENT Condition: Stable Discharge Details Clinical Impression: Schizophrenia Primary Care Provider: Katy Brooks ED Provider: Kevyn Contreras Home Meds and New Rx's Prescriptions: No Action aripiprazole 30 mg tablet 1 tab PO QAM Vraylar 6 mg capsule 1 cap PO HS diazepam 5 mg tablet 5 mg PO DAILY Jardiance 25 mg Tablet 25 mg PO QAM Qty: 30 0RF metformin 1,000 mg tablet 1,000 mg PO BID Qty: 60 0RF (DME) blood-glucose meter [OneTouch Ultra2 Meter] Kit See Rx Instructions .Route Qty: 1 0RF Rx Instructions: BID glucose monitoring (DME) OneTouch Ultra Test Strip See Rx Instructions .Route Qty: 100 0RF Rx Instructions: BID glucose monitoring (DME) lancets [Lancets,Ultra Thin] Misc See Rx Instructions .Route Qty: 100 0RF Rx Instructions: TID glucose monitoring (DME) lancets [OneTouch UltraSoft Lancets] Misc See Rx Instructions .Route Qty: 100 0RF Rx Instructions: BID glucose monitoring quetiapine 100 mg tablet 100 mg PO HS Probiotic 100 billion cell Capsule 1 cap PO DAILY aspirin [Aspir-81] 81 mg Tablet,Delayed Release (Dr/Ec) 81 mg PO DAILY atorvastatin 10 mg tablet 20 mg PO DAILY lisinopril 10 mg tablet 10 mg PO DAILY metoprolol succinate 50 mg Tablet Extended Release 24 Hr 50 mg PO DAILY olanzapine 10 mg Tablet 10 mg PO HS
--- NOTE | 2021-12-25 16:32 | NUR.NOTE ---
patient refusing metformin due to gives him diarrhea Nursing Note:
--- NOTE | 2021-12-25 18:36 | W.EDPROG ---
Date of service: 12/25/21 Time of Service: 18:36 Medical Decision Making second cert done and will remain involuntary, currently calm and cooperative, will continue to monitor Sign Out Sign Out Data: Sign Out Comment: schizophrenia, here for disorganized behavior, and HI; required sedation for medical eval and safety; EE, awaiting second cert Last updated by Margarito Dueñas MD at 12/25/21 07:04 Sign Out Comment: awaiting second cert. meds scheduled but patient refusing. Last updated by Kevyn Contreras MD at 12/25/21 16:34 Discharge Plan Disposition Patient Disposition: STILL A PATIENT Condition: Stable Discharge Details Clinical Impression: Schizophrenia Primary Care Provider: Katy Brooks ED Provider: Guanaco Adkins Home Meds and New Rx's Prescriptions: No Action aripiprazole 30 mg tablet 1 tab PO QAM Vraylar 6 mg capsule 1 cap PO HS diazepam 5 mg tablet 5 mg PO DAILY Jardiance 25 mg Tablet 25 mg PO QAM Qty: 30 0RF metformin 1,000 mg tablet 1,000 mg PO BID Qty: 60 0RF (DME) blood-glucose meter [OneTouch Ultra2 Meter] Kit See Rx Instructions .Route Qty: 1 0RF Rx Instructions: BID glucose monitoring (DME) OneTouch Ultra Test Strip See Rx Instructions .Route Qty: 100 0RF Rx Instructions: BID glucose monitoring (DME) lancets [Lancets,Ultra Thin] Misc See Rx Instructions .Route Qty: 100 0RF Rx Instructions: TID glucose monitoring (DME) lancets [OneTouch UltraSoft Lancets] Misc See Rx Instructions .Route Qty: 100 0RF Rx Instructions: BID glucose monitoring quetiapine 100 mg tablet 100 mg PO HS Probiotic 100 billion cell Capsule 1 cap PO DAILY aspirin [Aspir-81] 81 mg Tablet,Delayed Release (Dr/Ec) 81 mg PO DAILY atorvastatin 10 mg tablet 20 mg PO DAILY lisinopril 10 mg tablet 10 mg PO DAILY metoprolol succinate 50 mg Tablet Extended Release 24 Hr 50 mg PO DAILY olanzapine 10 mg Tablet 10 mg PO HS
[2021-12-25] MEDS: diazePAM 5 MG TAB PO (20:52)
--- NOTE | 2021-12-26 05:52 | ED.PROG_ITS ---
Date of service: 12/26/21 Time of Service: 01:00 Medical Decision Making 12/25/21 2300 -- please see previous providers note for initial presentation, exam and plan. Case endorsed to continue to monitor while awaiting placement 12/26/21 0100 -- Pt reportedly awake and talkative all day yesterday. He is significantly disorganized and delusional. He continues to say it has never been done before . He frequently mentions God. Attempted to give meds to help with psychosis and anxiety but he is refusing. 0530 -- Continues to talk nonstop, was coming out of room and raising his voice. Able to re-direct but still refusing meds stating I want to wait til breakfas t. 0730 --Case endorsed to Dr. Washington to continue to monitor while awaiting placement. Medical Records Medical records reviewed: Yes I reviewed the patient's medical records. Sign Out Sign Out Data: Sign Out Comment: schizophrenia, here for disorganized behavior, and HI; required sedation for medical eval and safety; EE, awaiting second cert Last updated by Margarito Dueñas MD at 12/25/21 07:04 Sign Out Comment: awaiting second cert. meds scheduled but patient refusing. Last updated by Kevyn Contreras MD at 12/25/21 16:34 Sign Out Comment: second cert completed remains involuntary for decompensated schizophrenia Last updated by Guanaco Adkins MD at 12/25/21 18:37 Sign Out Comment: EE. Extremely delusional and talkative. Perseverating. Refusing to take meds. Awaiting placement. Last updated by Jaci Henderson DO at 12/26/21 06:16 Discharge Plan Disposition Patient Disposition: STILL A PATIENT Condition: Stable Discharge Details Clinical Impression: Schizophrenia Primary Care Provider: Katy Brooks ED Provider: Farrukh Washington Home Meds and New Rx's Prescriptions: No Action aripiprazole 30 mg tablet 1 tab PO QAM Vraylar 6 mg capsule 1 cap PO HS diazepam 5 mg tablet 5 mg PO DAILY Jardiance 25 mg Tablet 25 mg PO QAM Qty: 30 0RF metformin 1,000 mg tablet 1,000 mg PO BID Qty: 60 0RF (DME) blood-glucose meter [OneTouch Ultra2 Meter] Kit See Rx Instructions .Route Qty: 1 0RF Rx Instructions: BID glucose monitoring (DME) OneTouch Ultra Test Strip See Rx Instructions .Route Qty: 100 0RF Rx Instructions: BID glucose monitoring (DME) lancets [Lancets,Ultra Thin] Misc See Rx Instructions .Route Qty: 100 0RF Rx Instructions: TID glucose monitoring (DME) lancets [OneTouch UltraSoft Lancets] Misc See Rx Instructions .Route Qty: 100 0RF Rx Instructions: BID glucose monitoring quetiapine 100 mg tablet 100 mg PO HS Probiotic 100 billion cell Capsule 1 cap PO DAILY aspirin [Aspir-81] 81 mg Tablet,Delayed Release (Dr/Ec) 81 mg PO DAILY atorvastatin 10 mg tablet 20 mg PO DAILY lisinopril 10 mg tablet 10 mg PO DAILY metoprolol succinate 50 mg Tablet Extended Release 24 Hr 50 mg PO DAILY olanzapine 10 mg Tablet 10 mg PO HS
--- NOTE | 2021-12-26 08:56 | NUR.NOTE ---
PT refused all morning medications despite education by this nurse on the importance of each pill was willing to take the diazepam but stated to this nurse that because it was orange and not yellow he was not taking it.
--- NOTE | 2021-12-26 09:39 | NUR.NOTE ---
Nursing Note: Pt asked aide for medication. Offered zyprexa which he refused. Dr. Washington spoke to pt about medication as he is unfamiliar with it. Pt continues to refuse. He was informed to let staff know if he will take medication.
--- NOTE | 2021-12-26 12:24 | CMSP_ITS ---
- If Service Date Differs Date of service: 12/26/21 Time of Service: 12:24 Care Management Safety Plan Status: Involuntary - Reason for Wait Reason for Wait: Inpatient Admission INVOLUNTARY FOR INPATIENT PSYCHIATRIC STABILIZATION. A huddle is held at 13:10 with Ashley, nursing supervisor baking, Stormy, charge nurse, and SUNI Garg, in attendance. NO CHANGES TO PLAN. Safety plan has been established to meet the needs of the patient, and consideration of the care team, to adhere to patient goals, identify restrictions based on behavioral status, address nutrition, and determine allowed personal belongings, tools for hygiene and personal care. Determine level of activity including ambulation, level of supervision, visitors, and determine privileges based on behaviors and level of engagement by pt. SAFETY PLAN: 1. Will remain on SI/HI precautions. In Paper Clothes. 2. Will remain in room under direct supervision of one-on-one staff at all times provided by [employer], ESTIMATOR PROJECT MANAGER, RAG COLLECTOR cement and concrete plant worker. 3. May have paper cups, plates, finger foods as well as a cardboard spoon for meals. 4. Follow [facility] Management of the Admitted Behavioral Health Patient policy. 5. Comfort bath system only. 6. No personal belongings 7. Visitors: None at this time. 8. Activities: Soft cart activities, television and other activities at RN discretion. 9. Bathroom privileges with escort. 10. Phone: Limited to legal contacts at this time, via [facility] [facility] hospital phone and at RN discretion. 11. Due to INVOLUNTARY status, patient is being held at [facility] by the Department of Mental Health ([facility]). A 2nd certification by [facility] Psychiatrist which occurred on 12/25/21 upheld the involuntary status. Staff will provide de-escalation support (CPI) as needed. If patient wishes to leave [facility], staff will contact [facility] Crisis Screener ([phone]) and On-Call Housing Project Manager ([phone]) as soon as possible. In the event of elopement, notify [place] [employer] ([phone]). Patient is currently involuntarily at [facility]. [facility] Frontline Industrial Manufacturing Technician will continue seeking placement. Please contact the Degree Clerk Housing Project Manager ([phone]) for any needed changes to Safety Plan. Safety plan has been pr ovided to interdepartmental care team. Patient will be transported by [facility] at time of discharge.
--- NOTE | 2021-12-26 12:24 | PDOC.CMSAFED ---
- If Service Date Differs Date of service: 12/26/21 Time of Service: 12:24 Care Management Safety Plan Status: Involuntary - Reason for Wait Reason for Wait: Inpatient Admission INVOLUNTARY FOR INPATIENT PSYCHIATRIC STABILIZATION. A huddle is held at 13:10 with Ashley, nursing guard supervisor, Stormy, charge nurse, and SUNI Garg, in attendance. NO CHANGES TO PLAN. Safety plan has been established to meet the needs of the patient, and consideration of the care team, to adhere to patient goals, identify restrictions based on behavioral status, address nutrition, and determine allowed personal belongings, tools for hygiene and personal care. Determine level of activity including ambulation, level of supervision, visitors, and determine privileges based on behaviors and level of engagement by pt. SAFETY PLAN: 1. Will remain on SI/HI precautions. In Paper Clothes. 2. Will remain in room under direct supervision of one-on-one staff at all times provided by [employer], VICE PRESIDENT NETWORK DEVELOPMENT, STEAM TRAIN DRIVER wringer machine operator. 3. May have paper cups, plates, finger foods as well as a cardboard spoon for meals. 4. Follow [facility] Management of the Admitted Behavioral Health Patient policy. 5. Comfort bath system only. 6. No personal belongings 7. Visitors: None at this time. 8. Activities: Soft cart activities, television and other activities at RN discretion. 9. Bathroom privileges with escort. 10. Phone: Limited to legal contacts at this time, via [facility] hospital phone and at RN discretion. 11. Due to INVOLUNTARY status, patient is being held at [facility] by the Department of Mental Health ([facility]). A 2nd certification by [facility] Psychiatrist which occurred on 12/25/21 upheld the involuntary status. Staff will provide de-escalation support (CPI) as needed. If patient wishes to leave [facility], staff will contact [facility] Crisis Screener ([phone]) and On-Call Steam Roller Operator ([phone]) as soon as possible. In the event of elopement, notify [place] [employer] ([phone]). Patient is currently involuntarily at [facility]. [facility] Frontline Icing Machine Operator will continue seeking placement. Please contact the Workers Compensation Claims Adjuster Steam Roller Operator ([phone]) for any needed changes to Safety Plan. Safety plan has been provided to interdepartmental care team. Patient will be transported by [facility] at time of discharge.
--- NOTE | 2021-12-26 12:58 | W.EDPROG ---
Date of service: 12/26/21 Time of Service: 12:59 Medical Decision Making Received signout from Dr. Henderson for the day shift of December 26. Through the late morning hours patient became more verbally and physically aggressive with staff. He was spitting and resisting them physically. He is demonstrating poor insight, lack of redirect ability. Given his physical resistance and spitting at staff he is a danger to staff and himself. I have ordered medication including antipsychotics for the patient. The patient improved and became more redirectable through the afternoon hours. Will be signed out to Dr. Adkins for the evening shift for December 26 Sign Out Sign Out Data: Sign Out Comment: schizophrenia, here for disorganized behavior, and HI; required sedation for medical eval and safety; EE, awaiting second cert Last updated by Margarito Dueñas MD at 12/25/21 07:04 Sign Out Comment: awaiting second cert. meds scheduled but patient refusing. Last updated by Kevyn Contreras MD at 12/25/21 16:34 Sign Out Comment: second cert completed remains involuntary for decompensated schizophrenia Last updated by Guanaco Adkins MD at 12/25/21 18:37 Sign Out Comment: EE. Extremely delusional and talkative. Perseverating. Refusing to take meds. Awaiting placement. Last updated by Jaci Henderson DO at 12/26/21 06:16 Sign Out Comment: EE Last updated by Farrukh Washington MD at 12/26/21 19:24 Discharge Plan Disposition Patient Disposition: STILL A PATIENT Condition: Stable Discharge Details Clinical Impression: Schizophrenia Primary Care Provider: Katy Brooks ED Provider: Farrukh Washington Home Meds and New Rx's Prescriptions: No Action aripiprazole 30 mg tablet 1 tab PO QAM Vraylar 6 mg capsule 1 cap PO HS diazepam 5 mg tablet 5 mg PO DAILY Jardiance 25 mg Tablet 25 mg PO QAM Qty: 30 0RF metformin 1,000 mg tablet 1,000 mg PO BID Qty: 60 0RF (DME) blood-glucose meter [OneTouch Ultra2 Meter] Kit See Rx Instructions .Route Qty: 1 0RF Rx Instructions: BID glucose monitoring (DME) OneTouch Ultra Test Strip See Rx Instructions .Route Qty: 100 0RF Rx Instructions: BID glucose monitoring (DME) lancets [Lancets,Ultra Thin] Misc See Rx Instructions .Route Qty: 100 0RF Rx Instructions: TID glucose monitoring (DME) lancets [OneTouch UltraSoft Lancets] Misc See Rx Instructions .Route Qty: 100 0RF Rx Instructions: BID glucose monitoring quetiapine 100 mg tablet 100 mg PO HS Probiotic 100 billion cell Capsule 1 cap PO DAILY aspirin [Aspir-81] 81 mg Tablet,Delayed Release (Dr/Ec) 81 mg PO DAILY atorvastatin 10 mg tablet 20 mg PO DAILY lisinopril 10 mg tablet 10 mg PO DAILY metoprolol succinate 50 mg Tablet Extended Release 24 Hr 50 mg PO DAILY olanzapine 10 mg Tablet 10 mg PO HS
--- NOTE | 2021-12-26 13:16 | SUR.PHASEI ---
pt becoming more disruptive pulling at door pt constantly verbally abusing staff and disrupting unit
--- NOTE | 2021-12-26 13:18 | SUR.PHASEI ---
pt pulling code alarm and staff emergency buttons trying to disrupt unit
[2021-12-26] MEDS: LORazepam 20 MG/10 ML VIAL IM (13:21)
[2021-12-26] MEDS: diphenhydrAMINE 50 MG/ML VIAL IM (13:21)
[2021-12-26] MEDS: OLANZapine 10 MG VIAL 15 MG IM (13:22)
[2021-12-26] MEDS: Water,Injection,Sterile 10 ML VIAL (13:22)
--- NOTE | 2021-12-26 15:04 | CMPROGNOTE_ITS ---
- If Service Date Differs Date of service: 12/26/21 Time of Service: 15:04 Care Management Progress Note S/O: Dwayne continues to refuse some medications. Delta of [facility] came to meet with Dwayne this morning but he refused to speak with her, screaming at her to leave his room. His behavior deteriorated midday resulting in a Code Cui. Dwayne became verbally and physically aggressive, spitting on staff, making verbal threats and throwing things in his room. His speech remains pressured and tange ntial. His thoughts are disorganized and often delusional and/or perseverative. A: Dwayne is a 51 year old male who presents in the ED for a psychiatric evaluation. P: Referrals are faxed to [facility], [facility], [facility], and [facility] for review. Dwayne will remain at [facility] and will be reassessed twice daily by [facility] until a placement is secured for him. A 2nd Certification by Psychiatrist occurred on 12/25/21 and upheld the involuntary status. CM will continue to follow. - MH Services (Omit if N/A) Current MH Services: CONSUMER MARKETING SPECIALIST - Status Status: Involuntary - Reason for Wait Reason for Wait: Inpatient Admission
--- NOTE | 2021-12-26 15:04 | PDOC.ERCMPRO ---
- If Service Date Differs Date of service: 12/26/21 Time of Service: 15:04 Care Management Progress Note S/O: Dwayne continues to refuse some medications. Delta of [facility] came to meet with Dwayne this morning but he refused to speak with her, screaming at her to leave his room. His behavior deteriorated midday resulting in a Code Cui. Dwayne became verbally and physically aggressive, spitting on staff, making verbal threats and throwing things in his room. His speech remains pressured and tangential. His thoughts are disorganized and often delusional and/or perseverative. A: Dwayne is a 51 year old male who presents in the ED for a psychiatric evaluation. P: Referrals are faxed to [facility], [facility], [facility], and [facility] for review. Dwayne will remain at [facility] and will be reassessed twice daily by [facility] until a placement is secured for him. A 2nd Certification by Psychiatrist occurred on 12/25/21 and upheld the involuntary status. CM will continue to follow. - MH Services (Omit if N/A) Current MH Services: CAMPAIGN MARKETING MANAGER - Status Status: Involuntary - Reason for Wait Reason for Wait: Inpatient Admission
--- NOTE | 2021-12-26 20:07 | NUR.NOTE ---
Patient asked software security architect and this sql report writer if he can watch tv. RN assigned to this patient gave the okay for me to turn the tv on but keep the remote. Patient constantly making requests with the software security architect as to asking him to remove the captions from the tv, changing the channel, etc. job placement officer asked for patient to stop talking about people's bodies and redirected him by asking which [place] show he would like to watch.
[2021-12-26] MEDS: Atorvastatin 20 MG TAB PO (20:38)
[2021-12-26] MEDS: QUEtiapine 100 MG TAB PO (20:38)
--- NOTE | 2021-12-26 20:38 | NUR.NOTE ---
Patient constantly asking questions to his nurse about his meds what is it, what is if for, which one is this, etc. Patient constantly rambling on detaining staff members (safety and security manager and RN) that are in his room. His nurse explained the names of the medications and what they are for and that he needed to move along to see other patients. Patient remains constantly speaking with safety and security manager on-duty.
--- NOTE | 2021-12-26 22:23 | NUR.NOTE ---
Patient c/o right knee hurting, pain of an 8, RN assigned to him is aware.
--- NOTE | 2021-12-26 22:52 | W.EDPROG ---
Date of service: 12/26/21 Time of Service: 22:52 Medical Decision Making pt here on involuntary status awaiting placement for decompensated schizophrenia, currently calm and cooperative, will continue to monitor until placement is found Sign Out Sign Out Data: Sign Out Comment: schizophrenia, here for disorganized behavior, and HI; required sedation for medical eval and safety; EE, awaiting second cert Last updated by Margarito Dueñas MD at 12/25/21 07:04 Sign Out Comment: awaiting second cert. meds scheduled but patient refusing. Last updated by Kevyn Contreras MD at 12/25/21 16:34 Sign Out Comment: second cert completed remains involuntary for decompensated schizophrenia Last updated by Guanaco Adkins MD at 12/25/21 18:37 Sign Out Comment: EE. Extremely delusional and talkative. Perseverating. Refusing to take meds. Awaiting placement. Last updated by Jaci Henderson DO at 12/26/21 06:16 Sign Out Comment: EE Last updated by Farrukh Washington MD at 12/26/21 19:24 Discharge Plan Disposition Patient Disposition: STILL A PATIENT Condition: Stable Discharge Details Clinical Impression: Schizophrenia Primary Care Provider: Katy Brooks ED Provider: Guanaco Adkins Home Meds and New Rx's Prescriptions: No Action aripiprazole 30 mg tablet 1 tab PO QAM Vraylar 6 mg capsule 1 cap PO HS diazepam 5 mg tablet 5 mg PO DAILY Jardiance 25 mg Tablet 25 mg PO QAM Qty: 30 0RF metformin 1,000 mg tablet 1,000 mg PO BID Qty: 60 0RF (DME) blood-glucose meter [OneTouch Ultra2 Meter] Kit See Rx Instructions .Route Qty: 1 0RF Rx Instructions: BID glucose monitoring (DME) OneTouch Ultra Test Strip See Rx Instructions .Route Qty: 100 0RF Rx Instructions: BID glucose monitoring (DME) lancets [Lancets,Ultra Thin] Misc See Rx Instructions .Route Qty: 100 0RF Rx Instructions: TID glucose monitoring (DME) lancets [OneTouch UltraSoft Lancets] Misc See Rx Instructions .Route Qty: 100 0RF Rx Instructions: BID glucose monitoring quetiapine 100 mg tablet 100 mg PO HS Probiotic 100 billion cell Capsule 1 cap PO DAILY aspirin [Aspir-81] 81 mg Tablet,Delayed Release (/Ec) 81 mg PO DAILY atorvastatin 10 mg tablet 20 mg PO DAILY lisinopril 10 mg tablet 10 mg PO DAILY metoprolol succinate 50 mg Tablet Extended Release 24 Hr 50 mg PO DAILY olanzapine 10 mg Tablet 10 mg PO HS
[2021-12-27] MEDS: OLANZapine 10 MG TAB PO ×3 (01:45→21:42)
[2021-12-27] MEDS: diazePAM 5 MG TAB PO ×2 (01:47→09:17)
[2021-12-27] MEDS: Aspirin 81 MG CHEW PO (09:13)
[2021-12-27] MEDS: Lisinopril 10 MG TAB PO (09:15)
[2021-12-27] MEDS: metFORMIN 500 MG TAB 1000 MG PO (09:15)
--- NOTE | 2021-12-27 09:24 | NUR.NOTE ---
PAtient was becoming aggitated while getting his breakfast, thoughts were random, unable to stay focused on conversations about medications. Patient refused medications. Dr. Dueñas ordered IM medication. Doctor spoke with patient about medication. Patient advised about options of IM medications vs po medications. PAtient agreed to scheduled po medications
[2021-12-27 09:25] VITALS: BP 106/72; PULSE 119; RESP 16; TEMP 37; O2SAT 94
--- NOTE | 2021-12-27 12:13 | PDOC.CMSAFED ---
- If Service Date Differs Date of service: 12/27/21 Time of Service: 12:13 Care Management Safety Plan Status: Involuntary - Reason for Wait Reason for Wait: Inpatient Admission INVOLUNTARY FOR INPATIENT PSYCHIATRIC STABILIZATION. A decentralized huddle is held today and no changes are made to plan. Safety plan has been established to meet the needs of the patient, and consideration of the care team, to adhere to patient goals, identify restrictions based on behavioral status, address nutrition, and determine allowed personal belongings, tools for hygiene and personal care. Determine level of activity including ambulation, level of supervision, visitors, and determine privileges based on behaviors and level of engagement by pt. SAFETY PLAN: 1. Will remain on SI/HI precautions. In Paper Clothes. 2. Will remain in room under direct supervision of one-on-one staff at all times provided by [employer], BOILER REPAIRMAN, MECHANICAL DESIGN DRAFTER aquatic director. 3. May have paper cups, plates, finger foods as well as a cardboard spoon for meals. 4. Follow [facility] Management of the Admitted Behavioral Health Patient policy. 5. Comfort bath system only. 6. No personal belongings 7. Visitors: None at this time. 8. Activities: Soft cart activities, television and other activities at RN discretion. 9. Bathroom privileges with escort. 10. Phone: Limited to legal contacts at this time, via [facility] hospital phone and at RN discretion. 11. Due to INVOLUNTARY status, patient is being held at [facility] by the Department of Mental Health ([facility]). A 2nd certification by [facility] Psychiatrist which occurred on 12/25/21 upheld the involuntary status. Staff will provide de-escalation support (CPI) as needed. If patient wishes to leave [facility], staff will contact [facility] Crisis Screener ([phone]) and On-Call Cash Management Associate ([phone]) as soon as possible. In the event of elopement, notify [place] [employer] ([phone]). Patient is currently involuntarily at [facility]. [facility] Frontline Geosciences Associate Professor will continue seeking placement. Please contact the Supply Chain Design Manager Cash Management Associate ([phone]) for any needed changes to Safety Plan. Safety plan has been provided to interdepartmental care team. Patient will be transported by [facility] at time of discharge.
[2021-12-27] MEDS: LORazepam 1 MG TAB 2 MG PO (15:45)
--- NOTE | 2021-12-27 16:37 | CMPROGNOTE_ITS ---
- If Service Date Differs Date of service: 12/27/21 Time of Service: 16:37 Care Management Progress Note S/O: Dwayne again refused medications today and became agitated, which resulted in a second Code Cui since his arrival at [facility]. Per charge nurse, he did eventually agree to take some of his medications. He continues to perseverate on zodiac signs, to exhibit pressured and tangential speech, and to have many demands. He frequently requires redirection and consistent boundaries. A: Dwayne is a 51 year old male who presents in the ED for a psychiatric evaluation. P: Referrals are faxed to [facility], [facility], [facility], and [facility] for review. Dwayne will remain at [facility] and will be reassessed twice daily by [facility] METHODS TIME ANALYST until a placement is secured for him. A 2nd Certification by Psychiatrist occurred on 12/25/21 and upheld the involuntary status. CM will continue to follow. - MH Services (Omit if N/A) Current MH Services: METHODS TIME ANALYST - Status Status: Involuntary - Reason for Wait Reason for Wait: Inpatient Admission
--- NOTE | 2021-12-27 16:37 | PDOC.ERCMPRO ---
- If Service Date Differs Date of service: 12/27/21 Time of Service: 16:37 Care Management Progress Note S/O: Dwayne again refused medications today and became agitated, which resulted in a second Code Cui since his arrival at [facility]. Per charge nurse, he did eventually agree to take some of his medications. He continues to perseverate on zodiac signs, to exhibit pressured and tangential speech, and to have many demands. He frequently requires redirection and consistent boundaries. A: Dwayne is a 51 year old male who presents in the ED for a psychiatric evaluation. P: Referrals are faxed to [facility], [facility], [facility], and [facility] for review. Dwayne will remain at [facility] and will be reassessed twice daily by [facility] ELEVATOR REPAIRER APPRENTICE until a placement is secured for him. A 2nd Certification by Psychiatrist occurred on 12/25/21 and upheld the involuntary status. CM will continue to follow. - MH Services (Omit if N/A) Current MH Services: ELEVATOR REPAIRER APPRENTICE - Status Status: Involuntary - Reason for Wait Reason for Wait: Inpatient Admission
[2021-12-27] MEDS: QUEtiapine 100 MG TAB PO (21:42)
--- NOTE | 2021-12-27 23:28 | W.EDPROG ---
Date of service: 12/27/21 Time of Service: 23:28 Medical Decision Making patient still awaiting placement for decompensated schizophrenia and is involuntary, currently sleeping, will monitor until bed found Sign Out Sign Out Data: Sign Out Comment: schizophrenia, here for disorganized behavior, and HI; required sedation for medical eval and safety; EE, awaiting second cert Last updated by Margarito Dueñas MD at 12/25/21 07:04 Sign Out Comment: awaiting second cert. meds scheduled but patient refusing. Last updated by Kevyn Contreras MD at 12/25/21 16:34 Sign Out Comment: second cert completed remains involuntary for decompensated schizophrenia Last updated by Guanaco Adkins MD at 12/25/21 18:37 Sign Out Comment: EE. Extremely delusional and talkative. Perseverating. Refusing to take meds. Awaiting placement. Last updated by Jaci Henderson DO at 12/26/21 06:16 Sign Out Comment: EE Last updated by Farrukh Washington MD at 12/26/21 19:24 Sign Out Comment: involuntary for decompensated schizophrenia Last updated by Guanaco Adkins MD at 12/27/21 03:29 Sign Out Comment: intermittently uncooperative, otherwise no events; awaiting placement Last updated by Margarito Dueñas MD at 12/27/21 15:22 Sign Out Comment: No acute events for day shift, awaits placement Last updated by Farrukh Washington MD at 12/27/21 22:44 Sign Out Comment: involuntary for decompensated schizophrenia Last updated by Guanaco Adkins MD at 12/27/21 22:56 Discharge Plan Disposition Patient Disposition: STILL A PATIENT Condition: Stable Discharge Details Clinical Impression: Schizophrenia Primary Care Provider: Katy Brooks ED Provider: Guanaco Adkins Home Meds and New Rx's Prescriptions: No Action aripiprazole 30 mg tablet 1 tab PO QAM Vraylar 6 mg capsule 1 cap PO HS diazepam 5 mg tablet 5 mg PO DAILY Jardiance 25 mg Tablet 25 mg PO QAM Qty: 30 0RF metformin 1,000 mg tablet 1,000 mg PO BID Qty: 60 0RF (DME) blood-glucose meter [OneTouch Ultra2 Meter] Kit See Rx Instructions .Route Qty: 1 0RF Rx Instructions: BID glucose monitoring (DME) OneTouch Ultra Test Strip See Rx Instructions .Route Qty: 100 0RF Rx Instructions: BID glucose monitoring (DME) lancets [Lancets,Ultra Thin] Misc See Rx Instructions .Route Qty: 100 0RF Rx Instructions: TID glucose monitoring (DME) lancets [OneTouch UltraSoft Lancets] Misc See Rx Instructions .Route Qty: 100 0RF Rx Instructions: BID glucose monitoring quetiapine 100 mg tablet 100 mg PO HS Probiotic 100 billion cell Capsule 1 cap PO DAILY aspirin [Aspir-81] 81 mg Tablet,Delayed Release (Dr/Ec) 81 mg PO DAILY atorvastatin 10 mg tablet 20 mg PO DAILY lisinopril 10 mg tablet 10 mg PO DAILY metoprolol succinate 50 mg Tablet Extended Release 24 Hr 50 mg PO DAILY olanzapine 10 mg Tablet 10 mg PO HS
[2021-12-28] MEDS: diazePAM 5 MG TAB 10 MG PO ×2 (02:02→21:03)
[2021-12-28 07:48] VITALS: BP 136/86; PULSE 80; RESP 17; TEMP 37; O2SAT 97
--- NOTE | 2021-12-28 08:18 | CMPROGNOTE_ITS ---
- If Service Date Differs Date of service: 12/28/21 Time of Service: 08:18 Care Management Progress Note S/O: Isiah was evaluated by Madelaine from [facility] today. No changes are made. Referral's to inpatient Psych facilities are still pending. Isiah was accepting of PRN medication this morning due to severe anxiety and delusions. CM will continue to follow. A: Dwayne is a 51 year old male who presents in the ED for a psychiatric evaluation. P: Referrals are faxed to [facility], [facility], [facility], and [facility] for review. Dwayne will remain at [facility] and will be reassessed twice daily by [facility] RAILWAY HEAD TENDER until a placement is secured for him. A 2nd Certification by Psychiatrist occurred on 12/25/21 and upheld the involuntary status. CM will continue to follow. - MH Services (Omit if N/A) Current MH Services: RAILWAY HEAD TENDER - Status Status: Involuntary - Reason for Wait Reason for Wait: Inpatient Admission
--- NOTE | 2021-12-28 08:18 | PDOC.ERCMPRO ---
- If Service Date Differs Date of service: 12/28/21 Time of Service: 08:18 Care Management Progress Note S/O: Isiah was evaluated by Madelaine from [facility] today. No changes are made. Referral's to inpatient Psych facilities are still pending. Isiah was accepting of PRN medication this morning due to severe anxiety and delusions. CM will continue to follow. A: Dwayne is a 51 year old male who presents in the ED for a psychiatric evaluation. P: Referrals are faxed to [facility], [facility], [facility], and [facility] for review. Dwayne will remain at [facility] and will be reassessed twice daily by [facility] GREENKEEPER until a placement is secured for him. A 2nd Certification by Psychiatrist occurred on 12/25/21 and upheld the involuntary status. CM will continue to follow. - MH Services (Omit if N/A) Current MH Services: GREENKEEPER - Status Status: Involuntary - Reason for Wait Reason for Wait: Inpatient Admission
--- NOTE | 2021-12-28 08:20 | CMSP_ITS ---
- If Service Date Differs Date of service: 12/28/21 Time of Service: 08:20 Care Management Safety Plan Status: Involuntary - Reason for Wait Reason for Wait: Inpatient Admission Safety plan has been established to meet the needs of the patient, and consideration of the care team, to adhere to patient goals, identify restrictions based on behavioral status, address nutrition, and determine allowed personal belongings, tools for hygiene and personal care. Determine level of activity including ambulation, level of supervision, visitors, and determine privileges based on behaviors and level of engagement by pt. SAFETY PLAN: 1. Will remain on SI/HI precautions. In Paper Clothes. 2. Will remain in room under direct supervision of one-on-one staff at all times provided by [employer], CLINICAL REVIEW SPECIALIST, WRAPPING MACHINE HELPER double cut off saw operator. 3. May have paper cups, plates, finger foods as well as a cardboard spoon for meals. 4. Follow [facility] Management of the Admitted Behavioral Health Patient policy. 5. Comfort bath system only. 6. No personal belongings 7. Visitors: None at this time. 8. Activities: Soft cart activities, television and other activities at RN discretion. 9. Bathroom privileges with escort. 10. Phone: Limited to legal contacts at this time, via [facility] hospital phone and at RN discretion. 11. Due to INVOLUNTARY status, patient is being held at [facility] by the Department of Mental Health ([facility]). A 2nd certification by [facility] Psychiatrist which occurred on 12/25/21 upheld the involuntary status. Staff will provide de-escalation support (CPI) as needed. If patient wishes to leave [facility], staff will contact [facility] Crisis Screener ([phone]) and On-Call Car Wrecker ([phone]) as soon as possible. In the event of elopement, notify [place] [employer] ([phone]). Patient is currently involuntarily at [facility]. [facility] Frontline Precision Agriculture Technician will continue seeking placement. Please contact the Armature Repairer Car Wrecker ([phone]) for any needed changes to Safety Plan. Safety plan has been provided to interdepartmental care team. Patient will be transported by [employer] at time of discharge.
--- NOTE | 2021-12-28 08:20 | PDOC.CMSAFED ---
- If Service Date Differs Date of service: 12/28/21 Time of Service: 08:20 Care Management Safety Plan Status: Involuntary - Reason for Wait Reason for Wait: Inpatient Admission Safety plan has been established to meet the needs of the patient, and consideration of the care team, to adhere to patient goals, identify restrictions based on behavioral status, address nutrition, and determine allowed personal belongings, tools for hygiene and personal care. Determine level of activity including ambulation, level of supervision, visitors, and determine privileges based on behaviors and level of engagement by pt. SAFETY PLAN: 1. Will remain on SI/HI precautions. In Paper Clothes. 2. Will remain in room under direct supervision of one-on-one staff at all times provided by [employer]PS[employer], MILITARY SCIENCE INSTRUCTOR, CUTTING MACHINE OFFBEARER information technology program manager. 3. May have paper cups, plates, finger foods as well as a cardboard spoon for meals. 4. Follow [facility] Management of the Admitted Behavioral Health Patient policy. 5. Comfort bath system only. 6. No personal belongings 7. Visitors: None at this time. 8. Activities: Soft cart activities, television and other activities at RN discretion. 9. Bathroom privileges with escort. 10. Phone: Limited to legal contacts at this time, via [facility] hospital phone and at RN discretion. 11. Due to INVOLUNTARY status, patient is being held at [facility] by the Department of Mental Health ([facility]). A 2nd certification by [facility] Psychiatrist which occurred on 12/25/21 upheld the involuntary status. Staff will provide de-escalation support (CPI) as needed. If patient wishes to leave [facility], staff will contact [facility] Crisis Screener ([phone]) and On-Call Regulatory Affairs Consultant ([phone]) as soon as possible. In the event of elopement, notify [place] [employer] ([phone]). Patient is currently involuntarily at [facility]. [facility] Frontline Corporation Pilot will continue seeking placement. Please contact the Associate Professor Of Musicology Regulatory Affairs Consultant ([phone]) for any needed changes to Safety Plan. Safety plan has been provided to interdepartmental care team. Patient will be transported by [employer] at time of discharge.
[2021-12-28] MEDS: LORazepam 1 MG TAB 2 MG PO (08:26)
[2021-12-28] MEDS: OLANZapine 10 MG TAB 20 MG PO (08:26)
[2021-12-28] MEDS: LORazepam 20 MG/10 ML VIAL 4 MG IM (09:13)
--- NOTE | 2021-12-28 11:07 | W.EDPROG ---
Date of service: 12/28/21 Time of Service: 11:08 Narrative I temporarily was involved in care of this patient secondary to severe anxiety and delusions secondary to current care provider involved in-hospital critical situation for patient safety and comfort, 20 mg of oral zyprexa was administered and 2 mg of po ativan pt continued to escalate and was given 4 mg IM ativan pt was alert and oriented and consentual with these measures he was resting comfortably with stable vitals after administration and care returned to current care provider, DR Pinzon, medications and care provided reviewed Sign Out Sign Out Data: Sign Out Comment: schizophrenia, here for disorganized behavior, and HI; required sedation for medical eval and safety; EE, awaiting second cert Last updated by Margarito Dueñas MD at 12/25/21 07:04 Sign Out Comment: awaiting second cert. meds scheduled but patient refusing. Last updated by Kevyn Contreras MD at 12/25/21 16:34 Sign Out Comment: second cert completed remains involuntary for decompensated schizophrenia Last updated by Guanaco Adkins MD at 12/25/21 18:37 Sign Out Comment: EE. Extremely delusional and talkative. Perseverating. Refusing to take meds. Awaiting placement. Last updated by Jaci Henderson DO at 12/26/21 06:16 Sign Out Comment: EE Last updated by Farrukh Washington MD at 12/26/21 19:24 Sign Out Comment: involuntary for decompensated schizophrenia Last updated by Guanaco Adkins MD at 12/27/21 03:29 Sign Out Comment: intermittently uncooperative, otherwise no events; awaiting placement Last updated by Margarito Dueñas MD at 12/27/21 15:22 Sign Out Comment: No acute events for day shift, awaits placement Last updated by Farrukh Washington MD at 12/27/21 22:44 Sign Out Comment: involuntary for decompensated schizophrenia Last updated by Guanaco Adkins MD at 12/27/21 22:56 Discharge Plan Disposition Patient Disposition: STILL A PATIENT Condition: Stable Discharge Details Clinical Impression: Schizophrenia Primary Care Provider: Katy Brooks ED Provider: Guanaco Adkins Home Meds and New Rx's Prescriptions: No Action aripiprazole 30 mg tablet 1 tab PO QAM Vraylar 6 mg capsule 1 cap PO HS diazepam 5 mg tablet 5 mg PO DAILY Jardiance 25 mg Tablet 25 mg PO QAM Qty: 30 0RF metformin 1,000 mg tablet 1,000 mg PO BID Qty: 60 0RF (DME) blood-glucose meter [OneTouch Ultra2 Meter] Kit See Rx Instructions .Route Qty: 1 0RF Rx Instructions: BID glucose monitoring (DME) OneTouch Ultra Test Strip See Rx Instructions .Route Qty: 100 0RF Rx Instructions: BID glucose monitoring (DME) lancets [Lancets,Ultra Thin] Misc See Rx Instructions .Route Qty: 100 0RF Rx Instructions: TID glucose monitoring (DME) lancets [OneTouch UltraSoft Lancets] Misc See Rx Instructions .Route Qty: 100 0RF Rx Instructions: BID glucose monitoring quetiapine 100 mg tablet 100 mg PO HS Probiotic 100 billion cell Capsule 1 cap PO DAILY aspirin [Aspir-81] 81 mg Tablet,Delayed Release (Dr/Ec) 81 mg PO DAILY atorvastatin 10 mg tablet 20 mg PO DAILY lisinopril 10 mg tablet 10 mg PO DAILY metoprolol succinate 50 mg Tablet Extended Release 24 Hr 50 mg PO DAILY olanzapine 10 mg Tablet 10 mg PO HS
--- NOTE | 2021-12-28 16:59 | MHPN_ITS ---
Date of service: 12/28/21 Time of Service: 17:25 Mental Health Emergency Note Release [facility] release signed:: No Reason for Visit Client presented to [facility] ED on 12/24/21 via [facility] and [facility] Embedded worker Lesly Ferrell after a MH warrant was executed. Client is currently at [facility] on involuntary status and is seen today for [facility] daily assessment. In the last 2 weeks has the pt presented for ES prior to today?: Unknown Client Information Client is: STUDENT SERVICES DIRECTOR Well Housed: Yes Current Treatment Team if applicable First care steam table worker: Name: Lindsay Lo Role: STUDENT SERVICES DIRECTOR home health care case managerstrategic marketing manager Info: [phone] Non Suicidal Self Injury Current: No History: No Safety Risk/Harm to Self or Others Current Ideation to Harm Self or Others: Yes to self. Intent: no, has no intent. Plan: no.does not have a plan. History of suicide attempt: No history of suicide attempt reported and to others. Intent: No Plan: no, does not have a plan. History of becoming violent with another person(any age): no history of violence with others. Risk: Does risk to harm exist?: yes. Risk: Moderate Risk Duty to warn indicated: No Asssessment/Mental Status Appearance: Disheveled and Poor hygiene Attitude: Guarded Behavior: Poor impulse control Speech: Incoherent and Slurred Affect: Flat and Cogruent with mood Mood: Irritable Thought process: Flight of ideas Hallucinations: yes, (Client reports that he is seeing and hearing both good and bad robots. ) Visual and Auditory Delusions: yes, Persectory/Paranoid and Bizarre Attention: Wandering Perception: Not impaired Orientation: Fully orientated Memory: Intact Insight: Poor Judgement: Poor Neurovegetative Symptoms Sleep: No change Appetitie: No change Interests: No change Energy: No change Libido: Not applicable Substance Use: Do you use nicotine?: No Have you used substances in the last 7 days?: No Additional Issues: Assaultive/Threatening Behavior: Yes Medical Concerns: No Client engaged in active self harm w/weapon: No Threatening to run away: No Child reported abuse/neglect: No Voluntarily presenting for services: No Domestic violence is a concern: No Extreme Psychosis or extreme behavior is present: Yes Impression Client continues to present with delusions and hallucinations. When this copy writer asks client how is he doing today, he states: I am doing ok can you bring me somewhere.? Client is very hard to understand as he was given IM ativan approximately an hour before this copy writer arrived to assess him. Client states that he is eating and sleeping well. Client is observed by this copy writer to be organizing napkins and cups on the floor. Client still appears to be a person in need of treatment at this time. Plan/Disposition Recommended Disposition: Hospitalization (, [facility], [facility], and ) facilities contacted. Plan: Client will remain at [facility] ED on involuntary status pending admission to an inpatient facility. STUDENT SERVICES DIRECTOR team will call hospitals to check on bed availability. Client will be reassessed daily by a [facility] until bed placement is secured of client can be safety planned home. Per conversation with Dr. Pinzon he will order telepsych for client to discuss medication options. Person reported agreement to plan: No Reports/communication Outcome discussed with: ED/Personnel (Verbal passover given to ED attending provider Dr. Pinzon. )
--- NOTE | 2021-12-28 23:56 | W.EDPROG ---
Date of service: 12/28/21 Time of Service: 23:56 Medical Decision Making still waiting placement, took oral valium as he was becoming restless now sleeping. Will continue to montor until placement found Sign Out Sign Out Data: Sign Out Comment: schizophrenia, here for disorganized behavior, and HI; required sedation for medical eval and safety; EE, awaiting second cert Last updated by Margarito Dueñas MD at 12/25/21 07:04 Sign Out Comment: Patient on EE. Awaiting bed. Last updated by Mynor Pinzon MD at 12/28/21 20:09 Sign Out Comment: involuntary for decompensated schizophrenia, no issues overnight Last updated by Guanaco Adkins MD at 12/28/21 23:55 Sign Out Comment: awaiting second cert. meds scheduled but patient refusing. Last updated by Kevyn Contreras MD at 12/25/21 16:34 Sign Out Comment: second cert completed remains involuntary for decompensated schizophrenia Last updated by Guanaco Adkins MD at 12/25/21 18:37 Sign Out Comment: EE. Extremely delusional and talkative. Perseverating. Refusing to take meds. Awaiting placement. Last updated by Jaci Henderson DO at 12/26/21 06:16 Sign Out Comment: EE Last updated by Farrukh Washington MD at 12/26/21 19:24 Sign Out Comment: involuntary for decompensated schizophrenia Last updated by Guanaco Adkins MD at 12/27/21 03:29 Sign Out Comment: intermittently uncooperative, otherwise no events; awaiting placement Last updated by Margarito Dueñas MD at 12/27/21 15:22 Sign Out Comment: No acute events for day shift, awaits placement Last updated by Farrukh Washington MD at 12/27/21 22:44 Sign Out Comment: involuntary for decompensated schizophrenia Last updated by Guanaco Adkins MD at 12/27/21 22:56 Discharge Plan Disposition Patient Disposition: STILL A PATIENT Condition: Stable Discharge Details Clinical Impression: Schizophrenia Primary Care Provider: Katy Brooks ED Provider: Guanaco Adkins Home Meds and New Rx's Prescriptions: No Action aripiprazole 30 mg tablet 1 tab PO QAM Vraylar 6 mg capsule 1 cap PO HS diazepam 5 mg tablet 5 mg PO DAILY Jardiance 25 mg Tablet 25 mg PO QAM Qty: 30 0RF metformin 1,000 mg tablet 1,000 mg PO BID Qty: 60 0RF (DME) blood-glucose meter [OneTouch Ultra2 Meter] Kit See Rx Instructions .Route Qty: 1 0RF Rx Instructions: BID glucose monitoring (DME) OneTouch Ultra Test Strip See Rx Instructions .Route Qty: 100 0RF Rx Instructions: BID glucose monitoring (DME) lancets [Lancets,Ultra Thin] Misc See Rx Instructions .Route Qty: 100 0RF Rx Instructions: TID glucose monitoring (DME) lancets [OneTouch UltraSoft Lancets] Misc See Rx Instructions .Route Qty: 100 0RF Rx Instructions: BID glucose monitoring quetiapine 100 mg tablet 100 mg PO HS Probiotic 100 billion cell Capsule 1 cap PO DAILY aspirin [Aspir-81] 81 mg Tablet,Delayed Release (Dr/Ec) 81 mg PO DAILY atorvastatin 10 mg tablet 20 mg PO DAILY lisinopril 10 mg tablet 10 mg PO DAILY metoprolol succinate 50 mg Tablet Extended Release 24 Hr 50 mg PO DAILY olanzapine 10 mg Tablet 10 mg PO HS
--- NOTE | 2021-12-29 02:41 | NUR.NOTE ---
Nursing Note: Attempted to offer pt an opportunity to shower. Patient was initially agreeable but during transition to 2nd floor for shower, patient became increasingly paranoid. Upon reaching the shower room, 5-10 minutes were taken to reason with, and direct patient into the shower room. Patient became resistant, paranoid, and loud. Patient was brought back downstairs and into treatment room without taking a shower to avoid further escalation that potentially could place the safety of himself, staff, and other patients at risk for inadvertent harm or disruption of care. Patient has safely returned to his treatment room which has been cleaned and linens changed.
[2021-12-29] MEDS: Water,Injection,Sterile 10 ML VIAL (03:15)
[2021-12-29] MEDS: OLANZapine 10 MG VIAL IM (03:15)
[2021-12-29] MEDS: LORazepam 20 MG/10 ML VIAL IM (03:15)
--- NOTE | 2021-12-29 09:55 | W.EDPROG ---
Date of service: 12/29/21 Time of Service: 09:50 Medical Decision Making 0800 --Case endorsed to continue to monitor while waiting placement. 0950 --discussed with nursing supervisor alteration workroom and team and patient can be admitted to the floor as he does have more than 48 hours without a code rock Case discussed with hospitalist who accepts patient for admission to the floor while awaiting placement. Pt sleeping. Sign Out Sign Out Data: Sign Out Comment: schizophrenia, here for disorganized behavior, and HI; required sedation for medical eval and safety; EE, awaiting second cert Last updated by Margarito Dueñas MD at 12/25/21 07:04 Sign Out Comment: Patient on EE. Awaiting bed. Last updated by Mynor Pinzon MD at 12/28/21 20:09 Sign Out Comment: involuntary for decompensated schizophrenia had im zyprexa and ativan for agitation Last updated by Guanaco Adkins MD at 12/29/21 03:30 Sign Out Comment: awaiting second cert. meds scheduled but patient refusing. Last updated by Kevyn Contreras MD at 12/25/21 16:34 Sign Out Comment: second cert completed remains involuntary for decompensated schizophrenia Last updated by Guanaco Adkins MD at 12/25/21 18:37 Sign Out Comment: EE. Extremely delusional and talkative. Perseverating. Refusing to take meds. Awaiting placement. Last updated by Jaci Henderson DO at 12/26/21 06:16 Sign Out Comment: EE Last updated by Farrukh Washington MD at 12/26/21 19:24 Sign Out Comment: involuntary for decompensated schizophrenia Last updated by Guanaco Adkins MD at 12/27/21 03:29 Sign Out Comment: intermittently uncooperative, otherwise no events; awaiting placement Last updated by Margarito Dueñas MD at 12/27/21 15:22 Sign Out Comment: No acute events for day shift, awaits placement Last updated by Farrukh Washington MD at 12/27/21 22:44 Sign Out Comment: involuntary for decompensated schizophrenia Last updated by Guanaco Adkins MD at 12/27/21 22:56 Discharge Plan Disposition Patient Disposition: [facility] INPATIENT Condition: Stable Discharge Details Clinical Impression: Acute psychosis Primary Care Provider: Katy Brooks ED Provider: Jaci Henderson Home Meds and New Rx's Prescriptions: No Action aripiprazole 30 mg tablet 1 tab PO QAM Vraylar 6 mg capsule 1 cap PO HS diazepam 5 mg tablet 5 mg PO DAILY Jardiance 25 mg Tablet 25 mg PO QAM Qty: 30 0RF metformin 1,000 mg tablet 1,000 mg PO BID Qty: 60 0RF (DME) blood-glucose meter [OneTouch Ultra2 Meter] Kit See Rx Instructions .Route Qty: 1 0RF Rx Instructions: BID glucose monitoring (DME) OneTouch Ultra Test Strip See Rx Instructions .Route Qty: 100 0RF Rx Instructions: BID glucose monitoring (DME) lancets [Lancets,Ultra Thin] Misc See Rx Instructions .Route Qty: 100 0RF Rx Instructions: TID glucose monitoring (DME) lancets [OneTouch UltraSoft Lancets] Misc See Rx Instructions .Route Qty: 100 0RF Rx Instructions: BID glucose monitoring quetiapine 100 mg tablet 100 mg PO HS Probiotic 100 billion cell Capsule 1 cap PO DAILY aspirin [Aspir-81] 81 mg Tablet,Delayed Release (Dr/Ec) 81 mg PO DAILY atorvastatin 10 mg tablet 20 mg PO DAILY lisinopril 10 mg tablet 10 mg PO DAILY metoprolol succinate 50 mg Tablet Extended Release 24 Hr 50 mg PO DAILY olanzapine 10 mg Tablet 10 mg PO HS
[2021-12-29] MEDS: Lisinopril 10 MG TAB PO (11:56)
[2021-12-29] MEDS: Aspirin 81 MG CHEW PO (11:56)
[2021-12-29] MEDS: metFORMIN 500 MG TAB 1000 MG PO ×2 (11:56→11:58)
[2021-12-29] MEDS: diazePAM 5 MG TAB PO (11:56)
[2021-12-29] MEDS: Empaglifozin 25 MG TAB PO (11:57)
--- NOTE | 2021-12-29 13:07 | CMPROGNOTE_ITS ---
- If Service Date Differs Date of service: 12/29/21 Time of Service: 13:07 Care Management Progress Note S/O: Dwayne is admitted to [facility] on an EE. He transferred to Med. Surg from the ED today, while waiting to transfer to an accepting inpatient Psych Treatment facility. Dwayne transitioned to the MS floor after 48+ hours without a code rock. Referral's to inpatient Psych facilities are still pending. [facility] will continue to assess patient per protocol. CM will continue to follow. A: Dwayne is a 51 year old male who presents in the ED for a psychiatric evaluation. P: Referrals are fax[facility] to [facility], [facility], [facility], and [facility] for review. Dwayne will remain at [facility] and will be reassessed twice daily by [facility] FOREIGN EXCHANGE SERVICES MANAGER until a placement is secured for him. A 2nd Certification by Psychiatrist occurred on 12/25/21 and upheld the involuntary status. CM will continue to follow. - MH Services (Omit if N/A) Current MH Services: FOREIGN EXCHANGE SERVICES MANAGER - Status Status: Involuntary - Reason for Wait Reason for Wait: Inpatient Admission
--- NOTE | 2021-12-29 13:07 | PDOC.CMPRO ---
- If Service Date Differs Date of service: 12/29/21 Time of Service: 13:07 Care Management Progress Note S/O: Dwayne is admitted to [facility] on an EE. He transferred to Med. Surg from the ED today, while waiting to transfer to an accepting inpatient Psych Treatment facility. Dwayne transitioned to the MS floor after 48+ hours without a code rock. Referral's to inpatient Psych facilities are still pending. [facility] will continue to assess patient per protocol. CM will continue to follow. A: Dwayne is a 51 year old male who presents in the ED for a psychiatric evaluation. P: Referrals are faxed to [facility], [facility], [facility], and [facility] for review. Dwayne will remain at [facility] and will be reassessed twice daily by [facility] STORE CLERK until a placement is secured for him. A 2nd Certification by Psychiatrist occurred on 12/25/21 and upheld the involuntary status. CM will continue to follow. - MH Services (Omit if N/A) Current MH Services: STORE CLERK - Status Status: Involuntary - Reason for Wait Reason for Wait: Inpatient Admission
--- NOTE | 2021-12-29 13:08 | CMSP_ITS ---
- If Service Date Differs Date of service: 12/29/21 Time of Service: 13:08 Care Management Safety Plan Status: Involuntary - Reason for Wait Reason for Wait: Inpatient Admission (Awaiting inpatient Psych treatment) Safety plan has been established to meet the needs of the patient, and consideration of the care team, to adhere to patient goals, identify restrictions based on behavioral status, address nutrition, and determine allowed personal belongings, tools for hygiene and personal care. Determine level of activity including ambulation, level of supervision, visitors, and determine privileges based on behaviors and level of engagement by pt. SAFETY PLAN: 1. Will remain on SI/HI precautions. In Paper Clothes. 2. Will remain in room under direct supervision of one-on-one staff at all times provided by CPSO, CRACKING STILL OPERATOR, ICT TRAINER contracts director. 3. May have paper cups, plates, finger foods as well as a cardboard spoon for meals. 4. Follow [facility] Management of the Admitted Behavioral Health Patient policy. 5. Comfort bath system only. 6. No personal belongings 7. Visitors: None at this time. 8. Activities: Soft cart activities, television and other activities at RN discretion. 9. Bathroom privileges with escort in the ED, available in room without limitation on M/S. 10. Phone: Limited to legal contacts at this time, via [facility] phone and at RN discretion. 11. Due to INVOLUNTARY status, patient is being held at [facility] by the Department of Mental Health ([facility]). A 2nd certification by [facility] Psychiatrist which occurred on 12/25/21 upheld the involuntary status. Staff will provide de-escalation support (CPI) as needed. If patient wishes to leave [facility], staff will contact [facility] Crisis Screener ([phone]) and On-Call Parks And Recreation Worker ([phone]) as soon as possible. In the event of elopement, notify [place] [employer] ([phone]). Patient is currently involuntarily at [facility]. [facility] Frontline Typewriters Functional Tester will continue seeking placement. Please contact the Applications System Analyst Parks And Recreation Worker ([phone]) for any needed changes to Safety Plan. Safety plan has been provided to interdepartmental care team. Patient will be transported by [employer] at time of discharge.
--- NOTE | 2021-12-29 13:08 | PDOC.CMSAFE ---
- If Service Date Differs Date of service: 12/29/21 Time of Service: 13:08 Care Management Safety Plan Status: Involuntary - Reason for Wait Reason for Wait: Inpatient Admission (Awaiting inpatient Psych treatment) Safety plan has been established to meet the needs of the patient, and consideration of the care team, to adhere to patient goals, identify restrictions based on behavioral status, address nutrition, and determine allowed personal belongings, tools for hygiene and personal care. Determine level of activity including ambulation, level of supervision, visitors, and determine privileges based on behaviors and level of engagement by pt. SAFETY PLAN: 1. Will remain on SI/HI precautions. In Paper Clothes. 2. Will remain in room under direct supervision of one-on-one staff at all times provided by CPSO, ROUTE SPECIALIST, ASSOCIATE PROFESSOR OF AUTOMATION forest practices field coordinator. 3. May have paper cups, plates, finger foods as well as a cardboard spoon for meals. 4. Follow [facility] Management of the Admitted Behavioral Health Patient policy. 5. Comfort bath system only. 6. No personal belongings 7. Visitors: None at this time. 8. Activities: Soft cart activities, television and other activities at RN discretion. 9. Bathroom privileges with escort in the ED, available in room without limitation on M/S. 10. Phone: Limited to legal contacts at this time, via [employer] hospital phone and at RN discretion. 11. Due to INVOLUNTARY status, patient is being held at [facility] by the Department of Mental Health ([facility]). A 2nd certification by [facility] Psychiatrist which occurred on 12/25/21 upheld the involuntary status. Staff will provide de-escalation support (CPI) as needed. If patient wishes to leave [facility], staff will contact [facility] Crisis Screener ([phone]) and On-Call Street Inspector ([phone]) as soon as possible. In the event of elopement, notify [place] [employer] ([phone]). Patient is currently involuntarily at [facility]. [facility] Frontline Explosives Operator will continue seeking placement. Please contact the Supervisor [address] Street Inspector ([phone]) for any needed changes to Safety Plan. Safety plan has been provided to interdepartmental care team. Patient will be transported by [employer] at time of discharge.
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
--- NOTE | 2021-12-29 17:34 | HPE_ITS ---
Date of service: 12/29/21 Time of Service: 17:34 Assessment and Plan Assessment and plan (1) Acute psychosis: Status: Acute (2) Diabetes: (3) Schizophrenia: History of Present Illness History of Present Illness Chief Complaint: Delusions and hallucinations Narrative: This is a 51 yo male with a h/o schizophrenia, DM2. He was admitted to [facility] on 12/08/21 for DKA and discharged on 12/17/21. He presented back to the ED by police after a warrant was issued for his to be brought in for a mental health and medical evaluation. He had been exhibiting escalating aggressive behaviors with homicidal threats, delusions and hallucinations. He required chemical restraints upon arrival to allow for an evaluation and for his and stafs safety. Mental health evaluated patient and recommended continuing hospitalization with a second cert by psychiatrist to be arranged. Referrals sent to facilities with inpatient medical and psychiatric care capability. He remained in the ED until transfer to the transition unit on day of this admission. He has been refusing oral medications much of the time but over the last 24 hours agreeing to IM lorazapam and/or olanzapine. Review of Systems Unobtainable due to mental status [facility] All Active Problems (Updated 12/29/21 @ 09:56 by Jaci Henderson DO) Acute psychosis (Acute) Medical History (Updated 12/29/21 @ 09:56 by Jaci Henderson DO) Diabetes Morbid obesity Schizophrenia Social History Smoking/Tobacco Use Status: Never Smoking risk assessment performed?: Yes Alcohol Intake: current Substance use type: does not use Additional Social history: pt not speaking at this time Meds Allergies and Home Medications Allergies Allergy/AdvReac Type Severity Reaction Status Date / Time No Known Allergies Allergy Unverified 12/24/21 21:00 Home Medications Medication Instructions Recorded Confirmed Type aripiprazole 30 mg tablet 1 tab PO QAM 12/08/21 12/25/21 History cariprazine 6 mg capsule (Vraylar) 1 cap PO HS 12/08/21 12/25/21 History diazepam 5 mg tablet 5 mg PO DAILY 12/08/21 12/24/21 History blood sugar diagnostic (OneTouch #100 ea 12/17/21 Rx Ultra Test strips) blood-glucose meter (OneTouch #1 ea 12/17/21 Rx Ultra2 Meter kit) empagliflozin 25 mg tablet 25 mg PO QAM #30 tabs 12/17/21 12/25/21 Rx (Jardiance) lancets (Lancets,Ultra Thin) #100 ea 12/17/21 Rx lancets (OneTouch UltraSoft #100 ea 12/17/21 Rx Lancets) metformin 1,000 mg tablet 1,000 mg PO BID #60 tabs 12/17/21 12/25/21 Rx Lactobacillus 40-Bifidobact 1 cap PO DAILY 12/24/21 12/24/21 History 3-S.thermophilus 100 billion cell capsule (Probiotic) quetiapine 100 mg tablet 100 mg PO HS 12/24/21 12/25/21 History aspirin 81 mg tablet,delayed 81 mg PO DAILY 12/25/21 12/25/21 History release atorvastatin 10 mg tablet 20 mg PO DAILY 12/25/21 12/25/21 History lisinopril 10 mg tablet 10 mg PO DAILY 12/25/21 12/25/21 History metoprolol succinate 50 mg 50 mg PO DAILY 12/25/21 12/25/21 History tablet,extended release 24 hr olanzapine 10 mg tablet 10 mg PO HS 12/25/21 12/25/21 History Exam Narrative Exam Narrative: Pt walking around in room. Not aggressive at this time. Talking incessantly. Const General: no acute distress Nutritional Appearance: obese Orientation: alert and confused Eyes General: appearance normal, both eyes and all related structures Sclera: sclerae normal Resp Effort & Inspection: normal respiratory effort and able to speak in complete sentences Auscultation: clear to auscultation bilaterally Cardio Other: Not auscultated. Patient pacing and would not cooperate. GI Inspection: obesity Neuro General: patient alert, no focal motor deficits and patient confused Cranial Nerves: facial strength normal Psych Speech and Movement: speech clear Mood: expansive Thought Process: flight of ideas and illogical Insight: poor Judgment: poor Results Labs Result diagrams: 12/24/21 21:30 12/24/21 21:30 Last Vital Signs Temp 37 C 12/28/21 07:48 Pulse 80 12/28/21 07:48 Resp 17 12/28/21 07:48 BP 136/86 12/28/21 07:48 Pulse Ox 97 12/28/21 07:48
--- NOTE | 2021-12-29 20:37 | NUR.NOTE ---
Nursing Note: Patient continues to pull his scrub pants down and expose himself to this advertising writer. The patient told this advertising writer if you take your hair down and shake it out and take your mask down i believe you're one of the prettiest women i've seen and i'm going to stand here until you do it. This advertising writer told the patient that his comments and behavior were inappropriate.
--- NOTE | 2021-12-29 22:07 | NUR.NOTE ---
Nursing Note: Patient allowed this caption writer to perform a finger stick and allowed seroquel to be administered.
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
[2021-12-29] MEDS: QUEtiapine 100 MG TAB PO (22:56)
--- NOTE | 2021-12-30 01:24 | NUR.NOTE ---
Nursing Note: Patient very worked up. Attempted to de-escalate patient. Patient attempting to lay on his mattress and rest. Patient will not stop stating concerns of Robots in his room. Patient has many problems to notify staff about regarding the layout of his room and lighting causing strain on him. Patient encouraged to close his eyes, patient did not appreciate being told to close his eyes. Will continue to monitor. CPSO remains 1:1.
--- NOTE | 2021-12-30 08:44 | NUR.NOTE ---
At approx. 0800 INTERNET MEDIA PLANNER went to retrieve patient vital signs and blood sugar. Patient was not cooperative and pacing around the room. Patient started to say sexually inappropriate remarks to INTERNET MEDIA PLANNER despite redirection, patient was then told INTERNET MEDIA PLANNER would be back later. Patient refused to have any vital signs or blood sugar taken at this time. Primary RN and supervisor powdered metal aware. Nursing Note:
--- NOTE | 2021-12-30 09:10 | CMPROGNOTE_ITS ---
- If Service Date Differs Date of service: 12/30/21 Time of Service: 09:10 Care Management Progress Note S/O: Dwayne is admitted to [facility] on an EE. He transferred to [facility] from the ED yesterday, while waiting to transfer to an accepting inpatient Psych Treatment facility. Referral's to inpatient Psych facilities are still pending. [facility] will continue to assess patient per protocol. CM will continue to follow. Today Dwayne refused to engage with the [facility] crisis screener. He has made threatening comments and gestures to staff and has been sexually inappropriate. Another patient in the transition area needed to be transferred to [facility] secondary to Dwayne's behaviors. At this time no other patients will be placed in the transition unit. A: Dwayne is a 51 year old male who presents in the ED for a psychiatric evaluation. P: Referrals have been sent to [facility], [facility], [facility], and [facility] for review. Dwayne will remain at [facility] and will be reassessed twice daily by [facility] COUNCIL MEMBER until a placement is secured for him. A 2nd Certification by Psychiatrist occurred on 12/25/21 and upheld the involuntary status. CM will continue to follow.
--- NOTE | 2021-12-30 09:10 | PDOC.CMPRO ---
- If Service Date Differs Date of service: 12/30/21 Time of Service: 09:10 Care Management Progress Note S/O: Dwayne is admitted to [facility] on an EE. He transferred to [facility] from the ED yesterday, while waiting to transfer to an accepting inpatient Psych Treatment facility. Referral's to inpatient Psych facilities are still pending. [facility] will continue to assess patient per protocol. CM will continue to follow. Today Dwayne refused to engage with the [facility] crisis screener. He has made threatening comments and gestures to staff and has been sexually inappropriate. Another patient in the transition area needed to be transferred to [facility] secondary to Dwayne's behaviors. At this time no other patients will be placed in the transition unit. A: Dwayne is a 51 year old male who presents in the ED for a psychiatric evaluation. P: Referrals have been sent to [facility], [facility], [facility], and [facility] for review. Dwayne will remain at [facility] and will be reassessed twice daily by [facility] CLARIFYING PLANT OPERATOR until a placement is secured for him. A 2nd Certification by Psychiatrist occurred on 12/25/21 and upheld the involuntary status. CM will continue to follow.
--- NOTE | 2021-12-30 09:22 | PDOC.CMSAFE ---
- If Service Date Differs Date of service: 12/30/21 Time of Service: 09:22 Care Management Safety Plan Status: Involuntary - Reason for Wait Reason for Wait: Inpatient Admission A safety huddle was held with Ashley, nursing crop supervisor, SWAPNA Crowe and SUNI Michaud at 3:45pm. The decision was made tto keep the safety plan as is since Dwayne has had difficulty staying in control today and has exhibited behaviors that are offensive and threatening to staff. Safety plan has been established to meet the needs of the patient, and consideration of the care team, to adhere to patient goals, identify restrictions based on behavioral status, address nutrition, and determine allowed personal belongings, tools for hygiene and personal care. Determine level of activity including ambulation, level of supervision, visitors, and determine privileges based on behaviors and level of engagement by pt. SAFETY PLAN: 1. Will remain on SI/HI precautions. In Paper Clothes. 2. Will remain in room under direct supervision of one-on-one staff at all times provided by CPSO, CHILD & ADOLESCENT PSYCHIATRIST, FOREST TECHNOLOGY PROFESSOR early childhood education instructor. 3. May have paper cups, plates, finger foods as well as a cardboard spoon for meals. 4. Follow [facility] Management of the Admitted Behavioral Health Patient policy. 5. Comfort bath system only. 6. No personal belongings 7. Visitors: None at this time. 8. Activities: Soft cart activities, television and other activities at RN discretion. 9. Bathroom privileges with escort in the ED, available in room without limitation on M/S. 10. Phone: Limited to legal contacts at this time, via [employer] hospital phone and at RN discretion. 11. Due to INVOLUNTARY status, patient is being held at [facility] by the Department of Mental Health ([facility]). A 2nd certification by [facility] Psychiatrist which occurred on 12/25/21 upheld the involuntary status. Staff will provide de-escalation support (CPI) as needed. If patient wishes to leave [facility], staff will contact [facility] Crisis Screener ([phone]) and On-Call Puller Machine ([phone]) as soon as possible. In the event of elopement, notify [facility] Police ([phone]). Patient is currently involuntarily at [facility]. [facility] Frontline Occupational Therapy Professor will continue seeking placement. Please contact the Structured Cabling Technician Puller Machine ([phone]) for any needed changes to Safety Plan. Safety plan has been provided to interdepartmental care team. Patient will be transported by rehab therapy manager at time of discharge.
--- NOTE | 2021-12-30 11:48 | NUR.NOTE ---
Nursing Note: Offered Pt's medications x3 throughout morning, refused all 3 times. It is now 1150 and he still will not take any of his medications. Pt has flight of ideas, wants to dominate all conversation and isn't receptive to any of nursings suggestions in regards to medications.
--- NOTE | 2021-12-30 12:40 | NUR.NOTE ---
Nursing Note: hunter downs called. Pt being verballly and physically aggressive after vide call w/mental health. throwing brush, food and sock at sitter CLARIBEL. Threw and air punch in sitters direction and was verbally aggressive. SECRET CODE EXPERT came in to try and help deescalate situation, talked w/Pt for a while. no further violent acts or threats happening @ this time. hunter downs complete after approximately 15 minuets. Pt environment attempted be be calm. all items removed from room.
--- NOTE | 2021-12-30 12:41 | W.INDIABCONS ---
Date of service: 12/30/21 Time of Service: 12:41 Diabetes Inpatient Consult Reason for Visit: DM education DESCRIPTION/ASSESSMENT: Dwayne is familiar to typewriter ribbon winder from previous admission from 12/08-12/17/21. PMH: acute psychosis with uncontrolled DM. On previous admission admitted with DKA, A1C: 11.8% indicating very poor glycemic control. Dwayne had not been taking insulin as prescribed. On discharge, insulin was d/salvador and he was prescribed 1000 mg metformin BID, 25 mg Jardiance qd. Blood sugars elevated on admission. Unclear if taking DM meds weight has been stable and at baseline. Following diabetic diet with excellent intake. Meeting all macronutrient needs. INTERVENTION: not appropriate for education PLAN: will follow po intake, labs and weight Time Spent in Nutritional Counseling and Treatment: 0
--- NOTE | 2021-12-30 16:48 | W.PM.PROGNOT ---
Date of Service Date of service: 12/30/21 Time of Service: 16:49 Assessment and Plan Assessment and plan (1) Acute psychosis: Status: Acute Assessment and plan: Refusing his oral olanzapine and seroquel most of the time. Did take his Seroquel last PM but not olanzapine today. He, reportedly by ED staff, had accepted some doses of IM olanzepine. Will give 10mg if he is accepting. Waiting for placement in medical psychiatric facility. (2) Diabetes: Assessment and plan: Cont Jardiance and metformin. Add Actos 15mg daily. Monitor. (3) Schizophrenia: Assessment and plan: As above. Subjective Subjective Patient reports: afebrile; denies diarrhea, vomiting or shortness of breath Interval history since last seen: Walking around in room. Nearly non-stop talking. Exam Narrative Exam Narrative: Suspicious regarding who I am. Unable to examine; not comfortable getting close to patient. He is constantly trying to shake hands and reaches for my badge. Doesn't stand still for exam. Objective Last Vital Signs Temp 37 C 12/28/21 07:48 Pulse 80 12/28/21 07:48 Resp 17 12/28/21 07:48 BP 136/86 12/28/21 07:48 Pulse Ox 97 12/28/21 07:48
--- NOTE | 2021-12-30 18:18 | MHPN_ITS ---
Date of service: 12/30/21 Time of Service: 18:19 Mental Health Emergency Note Release [facility] release signed:: No Reason for Visit Client presented to [facility] ED on 12/24/21 via [facility] and [facility] Embedded worker Lesly Ferrell after a MH warrant was executed. Client is currently at [facility] ED on involuntary status and is seen today for daily QMHP assessment. 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 Access to means: No. Risk: Moderate Risk Duty to warn indicated: No Asssessment/Mental Status Appearance: Disheveled Attitude: Cooperative and Demanding Behavior: Agitated and Repetitive movements Speech: Normal Affect: Blunted Mood: Stressed and Anxious Thought process: Loose associations, Flight of ideas and Poverty of content Hallucinations: No Delusions: No Attention: Wandering and Poor concentration Perception: Derealization Orientation: Fully orientated Memory: Impaired in: (Client does not appear to have any idea where he is or why he is there. ) Recent Insight: Poor Judgement: Poor Neurovegetative Symptoms Sleep: No change Appetitie: No change Interests: No change Energy: Increase Libido: Not applicable Substance Use: Do you use nicotine?: No Have you used substances in the last 7 days?: No Additional Issues: Assaultive/Threatening Behavior: No Medical Concerns: No Client engaged in active self harm w/weapon: No Threatening to run away: No Child reported abuse/neglect: No Voluntarily presenting for services: No Domestic violence is a concern: No Extreme Psychosis or extreme behavior is present: Yes Impression Client is screened via zoom today due to this clinician being home sick. He presented with a higher than average level of energy and the inability to sit still. He is observed to be pacing a lot and having the urge to wash his hands frequently. He wants a chair in his room however, his impulsively makes a chair a potential weapon if he has any history of aggression or violence. Client is unable to stay focused on any questions but instead rambles about robots and medications that the hospital is trying to give him that he is not supposed to take. He holds up his lunch at one point and gives it back to the nurse or CPSO stating he cannot eat it. He is also observed telling the CPSO that he needs to leave the room it is unclear exactly why he is telling him to leave however. Plan/Disposition Recommended Disposition: Hospitalization facilities contacted. Plan: Client will remain at [facility] pending admission to an accepting facility. Juancarlos Lombardi from [facility] did call today to inquire if there had been any change in the client's situation/presentation. This information was shared with BACILIO Sharma to relay. Person reported agreement to plan: No Facilities contacted if Applicable [facility] Not accepted, No bed available [facility] Not accepted, No bed available [facility] Not accepted, Only accepting in house referrals, [facility] Not accepted, Acuity Reports/communication Outcome discussed with: ED/Personnel
--- NOTE | 2021-12-30 19:01 | NUR.NOTE ---
Nursing Note: POC reviewed and discussed with dayshift RN. Will attempt to offer meds and cares as patient tolerates. CPSO remains 1:1 at patients room.
[2021-12-30] MEDS: OLANZapine 10 MG VIAL IM (22:14)
--- NOTE | 2021-12-30 22:16 | NUR.NOTE ---
Nursing Note: 10mg IM Zyprexa was administered after ~ 30 minutes of 1:1 Patient RN discussion. Patient has been anxious, restless, agitated, threatening phyical violence on staff with gestures of force. Patient was able to be de-escalated by the continuity writer to the point of allowing IM Injection. Patient turned onto left side and pulled his paper scrubs down to given adequate visualization of the right ventral gluteal muscle. Patient tolerated care for that specific scenario. This continuity writer then told patient he will be able to rest now, patient stated he wanted to rest, but needed his vitamin water and ice back beside his bed. Drinks placed within reach and this continuity writer left the room. Will continue to monitor.
[2021-12-30] MEDS: Water,Injection,Sterile 10 ML VIAL (22:42)
--- NOTE | 2021-12-31 02:45 | NUR.NOTE ---
Nursing Note: Patient had some relief from IM injection of Zyprexa. Less aggressive gestures towards staff. Patient still is very restless and paranoid anxious. Patient talks alot abut Robots disturbing him, Wyatt Turner and Clifton Pedro. Patient does continue to speak inappropriately regarding the opposite sex. This editorial writer provides therapeutic communication and listens, but gives patients boundaries about appropriate language and behavior while in this facility. Able to de-escalate patient at times, other times patient is not re-directable.
[2021-12-31 08:26] VITALS: BP 105/80; PULSE 121; RESP 20; TEMP 36.6; O2SAT 97
--- NOTE | 2021-12-31 09:49 | CMSP_ITS ---
- If Service Date Differs Date of service: 12/31/21 Time of Service: 09:49 Care Management Safety Plan Status: Involuntary - Reason for Wait Reason for Wait: Inpatient Admission A safety huddle was held with Angeline, nursing supervisor pipe joints, VISHNU Gomez and SUNI Michaud at 15:00. The decision was made to keep the safety plan as is since Dwayne has not had any significant improvements in behavior or thought patterns. He remains very delusional and paranoid. Safety plan has been established to meet the needs of the patient, and consideration of the care team, to adhere to patient goals, identify restrictions based on behavioral status, address nutrition, and determine allowed personal belongings, tools for hygiene and personal care. Determine level of activity including ambulation, level of supervision, visitors, and determine privileges based on behaviors and level of engagement by pt. SAFETY PLAN: 1. Will remain on SI/HI precautions. In Paper Clothes. 2. Will remain in room under direct supervision of one-on-one staff at all times provided by CPSO, FLOYD, FACTORER supervisor shuttle veneering. 3. May have paper cups, plates, finger foods as well as a cardboard spoon for meals. 4. Follow [facility] Management of the Admitted Behavioral Health Patient policy. 5. Comfort bath system only. 6. No personal belongings 7. Visitors: None at this time. 8. Activities: Soft cart activities, television and other activities at RN discretion. 9. Bathroom privileges with escort in the ED, available in room without limitation on M/S. 10. Phone: Limited to legal contacts at this time, via [facility] phone and at RN discretion. 11. Due to INVOLUNTARY status, patient is being held at [facility] by the Department of Mental Health ([facility]). A 2nd certification by [facility] Psychiatrist which occurred on 12/25/21 upheld the involuntary status. Staff will provide de-escalation support (CPI) as needed. If patient wishes to leave [facility], staff will contact [facility] Crisis Screener ([phone]) and On-Call Butcher'S Assistant ([phone]) as soon as possible. In the event of elopement, notify [facility] Police ([phone]). Patient is currently involuntarily at [facility]. [facility] Frontline Metal Shaping Machine Operator will continue seeking placement. Please contact the Sports Agent Butcher'S Assistant ([phone]) for any needed changes to Safety Plan. Safety plan has been provided to interdepartmental care team. Patient will be transported by clerical order filler at time of discharge.
--- NOTE | 2021-12-31 12:33 | MHPN_ITS ---
Date of service: 12/31/21 Time of Service: 11:38 Mental Health Emergency Note Release [facility] release signed:: Yes Reason for Visit Client is on EE status at [facility]. 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 (Client reports he wants to harm evil people; client would not identify plan or intention, or 'evil people') Intent: No Plan: no, does not have a plan. History of becoming violent with another person(any age): no history of violence with others. Risk: Does risk to harm exist?: No Risk: N/A Duty to warn indicated: No Asssessment/Mental Status Appearance: Disheveled Attitude: Cooperative and Guarded Behavior: Unremarkable Speech: Normal Affect: Cogruent with mood Mood: Stressed, Anxious and Irritable Thought process: Unremarkable Hallucinations: yes, (Client reports robots are controlling him) Auditory Delusions: yes, Persectory/Paranoid and Bizarre Attention: Unremarkable Perception: Not impaired Orientation: Fully orientated Memory: Intact Insight: Poor Judgement: Poor Neurovegetative Symptoms Sleep: No change Appetitie: No change Interests: No change Energy: No change Libido: No change Substance Use: Do you use nicotine?: No Have you used substances in the last 7 days?: No Additional Issues: Assaultive/Threatening Behavior: No Medical Concerns: Yes Client engaged in active self harm w/weapon: No Threatening to run away: No Child reported abuse/neglect: No Voluntarily presenting for services: No Domestic violence is a concern: No Extreme Psychosis or extreme behavior is present: Yes Impression RV reports he is doing better than yesterday. RV states the robots control his thoughts and his voice. Robots make him feel like he needs a break from speaking. RV is not endorsing SI or NSSI but states he wants to harm evill people. RV could not identify who the evil people were or any intention or plan behinf these thoughts. RV reports he is not med complaint and that he does not want to take any medications. Plan/Disposition Recommended Disposition: Hospitalization facilities contacted. Plan: RV will remain on EE status until involuntary treatment is found. Person reported agreement to plan: No Facilities contacted if Applicable [facility] Not accepted, Medical reasons [facility] (Pending Review but not actually accepted) Accepted, Pending review. Information Sent to [facility]: Referral [facility] Not accepted, Only accepting in house referrals, [facility] Not accepted, Acuity Reports/communication Outcome discussed with: ED/Personnel
--- NOTE | 2021-12-31 13:53 | CMPROGNOTE_ITS ---
- If Service Date Differs Date of service: 12/31/21 Time of Service: 13:53 Care Management Progress Note S/O: Dwayne is admitted to [facility] on an EE. He transferred to Med. Surg from the ED while waiting to transfer to an accepting inpatient Psych Treatment facility. Referral's to inpatient Psych facilities are still pending. [place] and [facility] have declined Dwayne and [place] is only accepting patients from their own facility.He is still pending review at [facility]. [facility] will continue to assess patient per protocol. CM will continue to follow. Today Dwayne engaged with the [facility] crisis screener. He denied SI but stated he might kill evil people. he has not displayed any outwardly aggressive behavior towards staff today nor has he threatened anyone. A: Dwayne is a 51 year old male who presents in the ED for a psychiatric evaluation. P: Referrals have been sent to [facility], [facility], [facility], and [facility] for review. Dwayne will remain at [facility] and will be reassessed twice daily by [facility] PRODUCTION ESTIMATOR until a placement is secured for him. A 2nd Certification by Psychiatrist occurred on 12/25/21 and upheld the involuntary status. CM will continue to follow.
--- NOTE | 2021-12-31 13:53 | PDOC.CMPRO ---
- If Service Date Differs Date of service: 12/31/21 Time of Service: 13:53 Care Management Progress Note S/O: Dwayne is admitted to [facility] on an EE. He transferred to Med. Surg from the ED while waiting to transfer to an accepting inpatient Psych Treatment facility. Referral's to inpatient Psych facilities are still pending. [place] and [facility] have declined Dwayne and [facility] is only accepting patients from their own facility.He is still pending review at [facility]. [facility] will continue to assess patient per protocol. CM will continue to follow. Today Dwayne engaged with the [facility] crisis screener. He denied SI but stated he might kill evil people. he has not displayed any outwardly aggressive behavior towards staff today nor has he threatened anyone. A: Dwayne is a 51 year old male who presents in the ED for a psychiatric evaluation. P: Referrals have been sent to [facility], [facility], [facility], and [facility] for review. Dwayne will remain at [facility] and will be reassessed twice daily by [facility] SPRAY GUN REPAIRER HELPER until a placement is secured for him. A 2nd Certification by Psychiatrist occurred on 12/25/21 and upheld the involuntary status. CM will continue to follow.
--- NOTE | 2021-12-31 16:54 | W.PM.PROGNOT ---
Date of Service Date of service: 12/31/21 Time of Service: 16:54 Assessment and Plan Assessment and plan (1) Acute psychosis: Status: Acute Assessment and plan: Refusing his oral olanzapine and seroquel most of the time. He did accept IM olanzapine last PM Given the option of IM olanzapine 10mg daily if he declines the oral and accepts IM dosage. Waiting for placement in medical psychiatric facility. (2) Diabetes: Assessment and plan: Cont Jardiance, Actos and metformin. Refusing fingerstick blood glucose monitoring much of the time. Monitor. (3) Schizophrenia: Assessment and plan: As above. Subjective Subjective Patient reports: tolerating a regular diet and afebrile Interval history since last seen: Pt was awake most of the night and today; eventually slept this afternoon. Exam Narrative Exam Narrative: Asleep. Did not attempt to arouse him given his several days w/o sleep. Appears comfortable. VS reviewed. Objective Last Vital Signs Temp 36.6 C 12/31/21 08:26 Pulse 121 H 12/31/21 08:26 Resp 20 12/31/21 08:26 BP 105/80 12/31/21 08:26 Pulse Ox 97 12/31/21 08:26
[2022-01-01 01:15] VITALS: BP 136/91; PULSE 87; RESP 18; TEMP 36.2; O2SAT 100
--- NOTE | 2022-01-01 10:27 | CMPROGNOTE_ITS ---
- If Service Date Differs Date of service: 01/01/22 Time of Service: 10:27 Care Management Progress Note S/O: Dwayne is admitted to [facility] on an EE. He transferred to Med. Surg from the ED while waiting to transfer to an accepting inpatient Psych Treatment facility. Referral's to inpatient Psych facilities are still pending. [facility] and [facility] have declined Dwayne and [facility] is only accepting patients from their own facility.He is still pending review at [facility]. [facility] will continue to assess patient per protocol. Dwayne has had a difficult time staying in control today, but has stopped short of needing to have a Code Villalobos called.. He threatened his nurse Sunil and also his CPSO Ashley. A grievance and appeals specialist has been staying in the transition area to be available if the situation escalates. Dwayne is still refusing to take his medication and has informed almost every person who has entered the transition area that he will see them in court. Per nursing staff, Dwayne was also sexualkly inappropriate with his OVERWEAVER director of casework services Lindsay when she came to see him today. A: Dwayne is a 51 year old male who presents in the ED for a psychiatric evaluation. P: Referrals have been sent to [facility], [facility], [facility], and [facility] for review. [facility] and [facility] have declined to admit Dwayne. [facility] ia reportedly only accepting patients from their own hospital. [facility] called to confirm a bed is still needed for Dwayne. Dwayne will remain at [facility] and will be reassessed twice daily by [facility] OVERWEAVER until a placement is secured for him. A 2nd Certification by Psychiatrist occurred on 12/25/21 and upheld the involuntary status. CM will continue to follow.
--- NOTE | 2022-01-01 10:27 | PDOC.CMPRO ---
- If Service Date Differs Date of service: 01/01/22 Time of Service: 10:27 Care Management Progress Note S/O: Dwayne is admitted to [facility] on an EE. He transferred to Med. Surg from the ED while waiting to transfer to an accepting inpatient Psych Treatment facility. Referral's to inpatient Psych facilities are still pending. [place] and [facility] have declined Dwayne and [facility] is only accepting patients from their own facility.He is still pending review at [facility]. [facility] per [facility]. Dwayne has had a difficult time staying in control today, but has stopped short of needing to have a Code Villalobos called.. He threatened his nurse Sunil and also his CPSO Ashley. A party supply specialist has been staying in the transition area to be available if the situation escalates. Dwayne is still refusing to take his medication and has informed almost every person who has entered the transition area that he will see them in court. Per nursing staff, Dwayne was also sexualkly inappropriate with his AQUATIC FACILITY MANAGER rn case manager Lindsay when she came to see him today. A: Dwayne is a 51 year old male who presents in the ED for a psychiatric evaluation. P: Referrals have been sent to [facility], [facility], [facility], and [facility] for review. [place] and [facility] have declined to admit Dwayne. [facility] ia reportedly only accepting patients from their own hospital. [facility] called to confirm a bed is still needed for Dwayne. Dwayne will remain at [facility] and will be reassessed twice daily by [facility] AQUATIC FACILITY MANAGER until a placement is secured for him. A 2nd Certification by Psychiatrist occurred on 12/25/21 and upheld the involuntary status. CM will continue to follow.
--- NOTE | 2022-01-01 10:28 | CMSP_ITS ---
- If Service Date Differs Date of service: 01/01/22 Time of Service: 10:28 Care Management Safety Plan Status: Involuntary Reason for Wait: Inpatient Admission A decentralized safety huddle was held with Angeline, nursing mail sorting supervisor, VISHNU Cortes and SUNI Michaud at 15:00. The decision was made to keep the safety plan as is since Dwayne has not had any significant improvements in behavior or thought patterns. He remains very delusional and paranoid. Safety plan has been established to meet the needs of the patient, and consideration of the care team, to adhere to patient goals, identify restrictions based on behavioral status, address nutrition, and determine allowed personal belongings, tools for hygiene and personal care. Determine level of activity including ambulation, level of supervision, visitors, and de termine privileges based on behaviors and level of engagement by pt. SAFETY PLAN: 1. Will remain on SI/HI precautions. In Paper Clothes. 2. Will remain in room under direct supervision of one-on-one staff at all times provided by CPSO, PASSENGER SERVICE REPRESENTATIVE, CONFERENCE AND EVENT ORGANISER relay record clerk. 3. May have paper cups, plates, finger foods as well as a cardboard spoon for meals. 4. Follow [facility] Management of the Admitted Behavioral Health Patient policy. 5. Comfort bath system only. 6. No personal belongings 7. Visitors: None at this time. 8. Activities: Soft cart activities, television and other activities at RN discretion. 9. Bathroom privileges with escort in the ED, available in room without limitation on M/S. 10. Phone: Limited to legal contacts at this time, via cordless hospital phone and at RN discretion. 11. Due to INVOLUNTARY status, patient is being held at [facility] by the Department of Mental Health ([facility]). A 2nd certification by [facility] Psychiatrist which occurred on 12/25/21 upheld the involuntary status. Staff will provide de-escalation support (CPI) as needed. If patient wishes to leave [facility], staff will contact [facility] Crisis Screener ([phone]) and On-Call Glass Etcher Helper ([phone]) as s oon as possible. In the event of elopement, notify [facility] Police ([phone]). Patient is currently involuntarily at [facility]. [facility] Frontline Casting Machine Operator Helper will continue seeking placement. Please contact the Entertainment Centre Manager Glass Etcher Helper ([phone]) for any needed changes to Safety Plan. Safety plan has been provided to interdepartmental care team. Patient will be transported by [facility] at time of discharge.
--- NOTE | 2022-01-01 10:28 | PDOC.CMSAFE ---
- If Service Date Differs Date of service: 01/01/22 Time of Service: 10:28 Care Management Safety Plan Status: Involuntary Reason for Wait: Inpatient Admission A decentralized safety huddle was held with Angeline, nursing call centre supervisor, SWAPNA Contreras, VISHNU Barber and SUNI Michaud at 15:00. The decision was made to keep the safety plan as is since Dwayne has not had any significant improvements in behavior or thought patterns. He remains very delusional and paranoid. Safety plan has been established to meet the needs of the patient, and consideration of the care team, to adhere to patient goals, identify restrictions based on behavioral status, address nutrition, and determine allowed personal belongings, tools for hygiene and personal care. Determine level of activity including ambulation, level of supervision, visitors, and determine privileges based on behaviors and level of engagement by pt. SAFETY PLAN: 1. Will remain on SI/HI precautions. In Paper Clothes. 2. Will remain in room under direct supervision of one-on-one staff at all times provided by CPSO, DENTIST/OWNER, STRIPER SPRAY GUN doweling machine operator. 3. May have paper cups, plates, finger foods as well as a cardboard spoon for meals. 4. Follow [facility] Management of the Admitted Behavioral Health Patient policy. 5. Comfort bath system only. 6. No personal belongings 7. Visitors: None at this time. 8. Activities: Soft cart activities, television and other activities at RN discretion. 9. Bathroom privileges with escort in the ED, available in room without limitation on M/S. 10. Phone: Limited to legal contacts at this time, [facility] phone and at RN discretion. 11. Due to INVOLUNTARY status, patient is being held at [facility] by the Department of Mental Health ([facility]). A 2nd certification by [facility] Psychiatrist which occurred on 12/25/21 upheld the involuntary status. Staff will provide de-escalation support (CPI) as needed. If patient wishes to leave [facility], staff will contact [facility] Crisis Screener ([phone]) and On-Call Back Tender Cloth Printing ([phone]) as soon as possible. In the event of elopement, notify [facility] Police ([phone]). Patient is currently involuntarily at [facility]. [facility] Frontline Corn Press Operator will continue seeking placement. Please contact the Booth Usher Back Tender Cloth Printing ([phone]) for any needed changes to Safety Plan. Safety plan has been provided to interdepartmental care team. Patient will be transported by civil division commander deputy sheriff at time of discharge.
--- NOTE | 2022-01-01 12:46 | PDOC.MHPN2 ---
Date of service: 01/01/22 Time of Service: 11:05 Mental Health Emergency Note Release [facility] release signed:: Yes Reason for Visit Client is on EE status. In the last 2 weeks has the pt presented for ES prior to today?: Unknown Client Information Client is: CONTINUITY CLERK Well Housed: Yes Non Suicidal Self Injury Current: No History: No Safety Risk/Harm to Self or Others Current Ideation to Harm Self or Others: No Risk: Risk: N/A Duty to warn indicated: No Asssessment/Mental Status Appearance: Disheveled and Poor hygiene Attitude: Demanding, Guarded and Hostile Behavior: Poor impulse control, Agitated and Gait disturbances Speech: Pressured, Soft and Slurred Affect: Cogruent with mood Mood: Elevated, Stressed, Anxious, Irritable and Angry Thought process: Tangential Delusions: yes, Persectory/Paranoid, Bizarre and Thought broadcasting Attention: Unremarkable Perception: Not impaired Orientation: Fully orientated Memory: Intact Insight: Poor Judgement: Poor Neurovegetative Symptoms Sleep: Decrease Appetitie: Decrease Interests: No change Energy: No change Libido: Not applicable Substance Use: Do you use nicotine?: No Have you used substances in the last 7 days?: No Additional Issues: Assaultive/Threatening Behavior: Yes Medical Concerns: Yes Client engaged in active self harm w/weapon: No Threatening to run away: No Child reported abuse/neglect: No Voluntarily presenting for services: No Domestic violence is a concern: No Extreme Psychosis or extreme behavior is present: Yes Impression RV reports he is not endorsing SI/NSSI. RV states he wants to harm mean people and pointed at the door after his RN Heriberto left the room. RV reports [facility] gave him sugar packets for his coffee even though he is a diabetic; RV reports this escalated him. RV then stated he planned to mila especially companies like [employer]. This clinician witnessed RV being verbally aggressive towards [facility] staff members. RV is demanding who comes and goes in his room and what they are doing. RV reports all he has consumed today is coffee.RV reports not sleeping last night. RV demands he wants a new CPSO and nurse; this clinican explained that is not how the process works. RV demanded this sign writer letterer or painter continued to talk to RV even tho this sign writer letterer or painter was done with the assessment questions and RV reported he had no more questions. RV is attempting to control all of the decisions being made for him although he is on involuntary status. RV requested to speak to CONTINUITY CLERK; This clinician will coordinate that with CONTINUITY CLERK. Plan/Disposition Recommended Disposition: Hospitalization facilities contacted. Plan: RV will continue to wait at [facility] until a bed is found. This clinician is waiting to discuss with CONTINUITY CLERK as this is a CONTINUITY CLERK client. Person reported agreement to plan: Yes Facilities contacted if Applicable [facility] Not accepted, Medical reasons [facility] Not accepted, Only accepting in house referrals, [facility] Not accepted, Acuity Reports/communication Outcome discussed with: Other (Care Managment)
--- NOTE | 2022-01-01 14:01 | W.PM.PROGNOT ---
Date of Service Date of service: 01/01/22 Time of Service: 14:03 Assessment and Plan Assessment and plan (1) Acute psychosis: Status: Acute Assessment and plan: He has refused all meds for 2 days now. Given the option of IM olanzapine 10mg daily if he declines the oral and accepts IM dosage. Waiting for placement in medical psychiatric facility. (2) Diabetes: Assessment and plan: Cont Jardiance, Actos and metformin. However, he is not taking his medications. Refusing fingerstick blood glucose monitoring much of the time. Monitor. (3) Schizophrenia: Assessment and plan: As above. Subjective Subjective Patient reports: tolerating a regular diet and afebrile; denies vomiting or shortness of breath Interval history since last seen: Pt slept for 4 hours yesterday afternoon and has been awake since then. Continues to refuse medications. Exam Narrative Exam Narrative: Wandering in room. Doesn't want me to enter but will shake my hand. He doesn't allow an exam. VS reviewed. Objective Last Vital Signs Temp 36.2 C L 01/01/22 01:15 Pulse 87 01/01/22 01:15 Resp 18 01/01/22 01:15 BP 136/91 H 01/01/22 01:15 Pulse Ox 100 01/01/22 01:15
--- NOTE | 2022-01-01 19:44 | NUR.NOTE ---
Nursing Note: patient was standing in the door way talking to this newswriter about the paper spoons on the floor. patient was escalating and stated that he wanted a plastic spoon from downstairs so he could hurt himself with it.
--- NOTE | 2022-01-01 21:33 | NUR.NOTE ---
Nursing Note: patient telling this technical document writer to sit down and shut the f up and that he is going to take a hot spatula and flip it over and burn this technical document writer in the face. patient asked where this technical document writer lives and stated there will be people coming to find this technical document writer after he gets out of here.
--- NOTE | 2022-01-02 11:24 | W.PM.PROGNOT ---
Date of Service Date of service: 01/02/22 Time of Service: 11:24 Assessment and Plan Assessment and plan (1) Acute psychosis: Status: Acute Assessment and plan: continues to refuse all medications. Given the option of IM olanzapine 10mg daily if he declines the oral no prn medication needed Waiting for placement in medical psychiatric facility on EE status with no other behavioral issues other than med non compliance. (2) Diabetes: Assessment and plan: Ordered Jardiance, Actos and metformin. However, he is not taking his medications. Refusing fingerstick blood glucose monitoring much of the time. Monitor. (3) Schizophrenia: Assessment and plan: As above. Discussed with DR Rao Subjective Subjective Interval history since last seen: still refusing medication and finger sticks c/o blurred vision slept for 2 hour block Exam Const Nutritional Appearance: overweight Orientation: alert and awake Limitations: other limitations (psychotic, manic) HENMT Head: normal to inspection Resp Effort & Inspection: normal respiratory effort Cardio Other: pink warm dry and well perfused Psych Speech and Movement: restless Mood: manic mood and paranoid Objective Last Vital Signs Temp 36.2 C L 01/01/22 01:15 Pulse 87 01/01/22 01:15 Resp 18 01/01/22 01:15 BP 136/91 H 01/01/22 01:15 Pulse Ox 100 01/01/22 01:15
--- NOTE | 2022-01-02 15:51 | CMSP_ITS ---
- If Service Date Differs Date of service: 01/02/22 Time of Service: 15:51 Care Management Safety Plan Status: Involuntary - Reason for Wait Reason for Wait: Inpatient Admission A safety huddle was held with Angeline, nursing color paste mixing supervisor, VISHNU Han and SUNI Michaud at 12:00. Dwayne has requested that he be allowed to shower. The decision was made to allow him to shower late in the afternoon after the Infusion Center closes if he was willing to take his medication, especially his Zyprexa. Dwayne was unwilling to take any medication, therefore the safety plan will remain unchanged as there is no improvement in Dwayne's behavior and thought patterns. He remains very delusional and paranoid. Safety plan has been established to meet the needs of the patient, and consideration of the care team, to adhere to patient goals, identify restrictions based on behavioral status, address nutrition, and determine allowed personal belongings, tools for hygiene and personal care. Determine level of activity including ambulation, level of supervision, visitors, and determine privileges based on behaviors and level of engagement by pt. SAFETY PLAN: 1. Will remain on SI/HI precautions. In Paper Clothes. 2. Will remain in room under direct supervision of one-on-one staff at all times provided by CPSO, WATERWORKS CHIEF ENGINEER, ELECT EQUIP MAINT ENG sign language instructor. 3. May have paper cups, plates, finger foods as well as a cardboard spoon for meals. 4. Follow [facility] Management of the Admitted Behavioral Health Patient policy. 5. Comfort bath system only. 6. No personal belongings 7. Visitors: None at this time. 8. Activities: Soft cart activities, television and other activities at RN discretion. 9. Bathroom privileges with escort in the ED, available in room without limitation on M/S. 10. Phone: Limited to legal contacts at this time, via cordless hospital phone and at RN discretion. 11. Due to INVOLUNTARY status, patient is being held at [facility] by the Department of Mental Health ([facility]). A 2nd certification by [facility] Psychiatrist which occurred on 12/25/21 upheld the involuntary status. Staff will provide de-escalation support (CPI) as needed. If patient wishes to leave [facility], staff will contact [facility] Crisis Screener ([phone]) and On-Call Elevator Pilot ([phone]) as soon as possible. In the event of elopement, notify [facility] Police ([phone]). Patient is currently involuntarily at [facility]. [facility] Frontline Junior Marketing Associate will continue seeking placement. Please contact the Campus Chaplain Elevator Pilot ([phone]) for any needed changes to Safety Plan. Safety plan has been provided to interdepartmental care team. Patient will be transported by record press operator at time of discharge.
--- NOTE | 2022-01-02 15:58 | CMPROGNOTE_ITS ---
- If Service Date Differs Date of service: 01/02/22 Time of Service: 15:58 Care Management Progress Note S/O: Dwayne is admitted to [facility] on an EE. He transferred to Med. Surg from the ED while waiting to transfer to an accepting inpatient Psych Treatment facility. Referral's to inpatient Psych facilities are still pending. [facility] and [facility] have declined Dwayne and [facility] is only accepting patients from their own facility. [facility] informed EDITORIAL CLERK that they are not accepting admissions today. [facility] will continue to assess patient per protocol. Dwayne requested a shower today. In safety huddle it was suggested that the privilege be granted if he was willing to take medication, especially Zyprexa. Dwayne declined to take his medication so the safety plan wilkl remain unchanged. A: Dwayne is a 51 year old male who presents in the ED for a psychiatric evaluation. P: Ref[facility] to [facility], [facility], [facility], and [facility] for review. [facility] and [facility] have declined to admit Dwayne. [facility] ia reportedly only accepting patients from their own hospital. [facility] is not accepting admissions today. Dwayne will remain at [facility] and will be reassessed twice daily by [facility] EDITORIAL CLERK until a placement is secured for him. A 2nd Certification by Psychiatrist occurred on 12/25/21 and upheld the involuntary status. CM will continue to follow.
--- NOTE | 2022-01-02 15:58 | PDOC.CMPRO ---
- If Service Date Differs Date of service: 01/02/22 Time of Service: 15:58 Care Management Progress Note S/O: Dwayne is admitted to [facility] on an EE. He transferred to Med. Surg from the ED while waiting to transfer to an accepting inpatient Psych Treatment facility. Referral's to inpatient Psych facilities are still pending. [facility] and [facility] have declined Dwayne and [facility] is only accepting patients from their own facility. [facility] informed SENIOR IOS SOFTWARE ENGINEER that they are not accepting admissions today. [facility] will continue to assess patient per protocol. Dwayne requested a shower today. In safety huddle it was suggested that the privilege be granted if he was willing to take medication, especially Zyprexa. Dwayne declined to take his medication so the safety plan wilkl remain unchanged. A: Dwayne is a 51 year old male who presents in the ED for a psychiatric evaluation. P: [facility], [facility], [facility], and [facility] for review. [facility] and [facility] have declined to admit Dwayne. [facility] ia reportedly only accepting patients from their own hospital. [facility] is not accepting admissions today. Dwayne will remain at [facility] and will be reassessed twice daily by [facility] SENIOR IOS SOFTWARE ENGINEER until a placement is secured for him. A 2nd Certification by Psychiatrist occurred on 12/25/21 and upheld the involuntary status. CM will continue to follow.
[2022-01-02 19:40] VITALS: BP 173/64; PULSE 69; RESP 20; TEMP 37; O2SAT 98
--- NOTE | 2022-01-02 23:35 | NUR.NOTE ---
Nursing Note: Patient stated that when he gets out of here he is going to find a gun and take care of business
--- NOTE | 2022-01-03 09:44 | PDOC.CMSAFE ---
- If Service Date Differs Date of service: 01/03/22 Time of Service: 09:44 Care Management Safety Plan Status: Involuntary - Reason for Wait Reason for Wait: Inpatient Admission Dwayne requested that he be allowed to shower. The decision was made to allow him to shower late in the afternoon after the Infusion Center closes if he was willing to take his medication, especially his Zyprexa. Dwayne was unwilling to take any medication, therefore the safety plan will remain unchanged as there is no improvement in Dwayne's behavior and thought patterns. He remains very delusional and paranoid. Safety plan has been established to meet the needs of the patient, and consideration of the care team, to adhere to patient goals, identify restrictions based on behavioral status, address nutrition, and determine allowed personal belongings, tools for hygiene and personal care. Determine level of activity including ambulation, level of supervision, visitors, and determine privileges based on behaviors and level of engagement by pt. SAFETY PLAN: 1. Will remain on SI/HI precautions. In Paper Clothes. 2. Will remain in room under direct supervision of one-on-one staff at all times provided by CPSO, BED OPERATOR, PLANT CONTROL AIDE director of medical review. 3. May have paper cups, plates, finger foods as well as a cardboard spoon for meals. 4. Follow [facility] Management of the Admitted Behavioral Health Patient policy. 5. Comfort bath system only. 6. No personal belongings 7. Visitors: None at this time. 8. Activities: Soft cart activities, television and other activities at RN discretion. 9. Bathroom privileges with escort in the ED, available in room without limitation on M/S. 10. Phone: Limited to legal contacts at this time, via [facility] hospital phone and at RN discretion. 11. Due to INVOLUNTARY status, patient is being held at [facility] by the Department of Mental Health ([facility]). A 2nd certification by [facility] Psychiatrist which occurred on 12/25/21 upheld the involuntary status. Staff will provide de-escalation support (CPI) as needed. If patient wishes to leave [facility], staff will contact [facility] Crisis Screener ([phone]) and On-Call Customer Solutions Architect ([phone]) as soon as possible. In the event of elopement, notify [facility] Police ([phone]). Patient is currently involuntarily at [facility]. [facility] Frontline Hostel Manager will continue seeking placement. Please contact the Digital Solutions Architect Customer Solutions Architect ([phone]) for any needed changes to Safety Plan. Safety plan has been provided to interdepartmental care team. Patient will be transported by director of speech pathology at time of discharge.
--- NOTE | 2022-01-03 09:45 | CMPROGNOTE_ITS ---
- If Service Date Differs Date of service: 01/03/22 Time of Service: 09:45 Care Management Progress Note S/O: Dwayne is admitted to [facility] on an EE. He transferred to Med. Surg from the ED while waiting to transfer to an accepting inpatient Psych Treatment facility. Referral's to inpatient Psych facilities are still pending. [place] and [facility] have declined Dwayne and [place] is only accepting patients from their own facility. Sylvester from TAPE MACHINE TAILER met with Dwayne today. He was not able to engage with [facility], although he did inform CM that it is likely that Dwayne will be able to go to [facility] early next week. [facility] did allow the lab to draw a glucose level today and it was in the 200's. A: Dwayne is a 51 year old male who presents in the ED for a psychiatric evaluation. P: Referrals have been sent to [facility], [facility], , and [facility] for review. [facility] have declined to admit Dwayne. [facility] ia reportedly only accepting patients from their own hospital. [facility] is not accepting admissions today. Dwayne will remain at [facility] and will be reassessed twice daily by [facility] TAPE MACHINE TAILER until a placement is secured for him. A 2nd Certification by Psychiatrist occurred on 12/25/21 and upheld the involuntary status. CM will continue to follow.
--- NOTE | 2022-01-03 09:45 | PDOC.CMPRO ---
- If Service Date Differs Date of service: 01/03/22 Time of Service: 09:45 Care Management Progress Note S/O: Dwayne is admitted to [facility] on an EE. He transferred to Med. Surg from the ED while waiting to transfer to an accepting inpatient Psych Treatment facility. Referral's to inpatient Psych facilities are still pending. [place] and [facility] have declined Dwayne and [place] is only accepting patients from their own facility. Sylvester from AUGER PRESS OPERATOR met with Dwayne today. He was not able to engage with [facility], although he did inform CM that it is likely that Dwayne will be able to go to [facility] early next week. [facility] did allow the lab to draw a glucose level today and it was in the 200's. A: Dwayne is a 51 year old male who presents in the ED for a psychiatric evaluation. P: Referrals have been sent to [facility], [facility], [facility], and [facility] for review. [facility] have declined to admit Dwayne. [facility] ia reportedly only accepting patients from their own hospital. [facility] is not accepting admissions today. Dwayne will remain at [facility] and will be reassessed twice daily by [facility] AUGER PRESS OPERATOR until a placement is secured for him. A 2nd Certification by Psychiatrist occurred on 12/25/21 and upheld the involuntary status. CM will continue to follow.
--- NOTE | 2022-01-03 17:27 | PGE_ITS ---
Date of Service Date of service: 01/03/22 Time of Service: 17:27 Assessment and Plan Assessment and plan (1) Acute psychosis: Status: Acute Assessment and plan: Has continued to refuse medications. Waiting for placement in medical psychiatric facility. (2) Diabetes: Assessment and plan: Cont Jardiance, Actos and metformin. However, he is not taking his medications. Refusing fingerstick blood glucose monitoring Today, he allowed a particular nurse to obtain a fingerstick glucose level. The result was 215. He still refused his diabetic medications. We will continue glucose monitoring w/o chemical restraints when he allows. If medical judgement indicates his health could be threatened by escalating glucose levels (his assessment shows signs/symptoms) a fingerstick glucose or lab draw can be obtained after haldol and diphenhydramine given as a restraint. (3) Schizophrenia: Assessment and plan: As above. (4) Non-compliance: Status: Acute Assessment and plan: Refusing glucose monitoring and medications. Significant concern that he could develop DKA given hospitalization on 12/08/21 for DKA Given the morbidity and mortality associated with DKA, there is a serious concern for his health and well-being by his noncompliance with medications and monitoring his blood glucose. A conversation was had today with Holden Fuller, health care attorney for [facility]. He explained that if the patients health is at serious risk if monitoring or medication is not given, then an emergency involuntary medication or chemical restraint can be utilized. We cannot obtain a quick court order to given involuntary medications that would not be considered a restraint, because we are not the appropriate facility that has that ability. Subjective Subjective Patient reports: tolerating a regular diet (Intake is marginal) and afebrile; denies diarrhea or vomiting Exam Narrative Exam Narrative: Wandering in room. Doesn't want me to enter but will shake my hand. He doesn't allow an exam. VS reviewed. Objective Last Vital Signs Temp 37.0 C 01/02/22 19:40 Pulse 69 01/02/22 19:40 Resp 20 01/02/22 19:40 BP 173/64 H 01/02/22 19:40 Pulse Ox 98 01/02/22 19:40
--- NOTE | 2022-01-04 07:32 | NUR.NOTE ---
Patient states that he is going to his house today weather we like it or not. Nursing Note:
--- NOTE | 2022-01-04 11:14 | CMPROGNOTE_ITS ---
- If Service Date Differs Date of service: 01/04/22 Time of Service: 11:14 Care Management Progress Note S/O: CM met with Nicole, [facility], this morning to discuss the discharge plan for Dwayne. Nicole met with Dwayne briefly and stated that her presence only escalated the patient, and that there should be limited stimuli due to his unpredictable presentation. Nicole called [facility], who asked for updated clinicals to be sent, and stated that they do not have beds and don't anticipate a bed tomorrow. Updated clinicals were sent and received. [facility] Supervisor [employer], Juancarlos is working on Dwayne's disposition as well, and has stated that he expects that [facility] will accept Dwayne early next week. Dwayne continues to refuse routine medical care and medications. CM will continue to follow. A: Dwayne is a 51 year old male who presents in the ED for a psychiatric evaluation. P: Referrals have been sent to [facility], [facility], [facility], and [facility] for review. [place] and [place] have declined to admit Dwayne. [facility] reportedly only accepting patients from their own hospital. [facility] is not accepting admissions today. Dwayne will remain at [facility] and will be reassessed twice daily by [facility] until a placement is secured for him. A 2nd Certification by Psychiatrist occurred on 12/25/21 and upheld the involuntary status. CM will continue to follow.
--- NOTE | 2022-01-04 11:14 | PDOC.CMPRO ---
- If Service Date Differs Date of service: 01/04/22 Time of Service: 11:14 Care Management Progress Note S/O: CM met with Nicole, [facility] FOLDER STITCHER OPERATOR, this morning to discuss the discharge plan for Dwayne. Nicole met with Dwayne briefly and stated that her presence only escalated the patient, and that there should be limited stimuli due to his unpredictable presentation. Nicole called [facility], who asked for updated clinicals to be sent, and stated that they do not have beds and don't anticipate a bed tomorrow. Updated clinicals were sent and received. [facility] Can Machine Operator, Juancarlos is working on Dwayne's disposition as well, and has stated that he expects that [facility] will accept Dwayne early next week. Dwayne continues to refuse routine medical care and medications. CM will continue to follow. A: Dwayne is a 51 year old male who presents in the ED for a psychiatric evaluation. P: Referrals have been sent to [facility], [facility], [facility], and [facility] for review. [place] and [place] have declined to admit Dwayne. [facility] reportedly only accepting patients from their own hospital. [facility] is not accepting admissions today. Dwayne will remain at [facility] and will be reassessed twice daily by [facility] FOLDER STITCHER OPERATOR until a placement is secured for him. A 2nd Certification by Psychiatrist occurred on 12/25/21 and upheld the involuntary status. CM will continue to follow.
--- NOTE | 2022-01-04 12:38 | CMSP_ITS ---
- If Service Date Differs Date of service: 01/04/22 Time of Service: 12:38 Care Management Safety Plan Status: Involuntary - Reason for Wait Reason for Wait: Inpatient Admission Dwayne continues to refuse routine medical care and medications. No change to safety plan at this time. Safety plan has been established to meet the needs of the patient, and consideration of the care team, to adhere to patient goals, identify restrictions based on behavioral status, address nutrition, and determine allowed personal belongings, tools for hygiene and personal care. Determine level of activity including ambulation, level of supervision, visitors, and determine privileges based on behaviors and level of engagement by pt. SAFETY PLAN: 1. Will remain on SI/HI precautions. In Paper Clothes. 2. Will remain in room under direct supervision of one-on-one staff at all times provided by CPSO, WATER PURIFIER, JIG BORE OPERATOR loss prevention supervisor. 3. May have paper cups, plates, finger foods as well as a cardboard spoon for meals. 4. Follow [facility] Management of the Admitted Behavioral Health Patient policy. 5. Comfort bath system only. 6. No personal belongings 7. Visitors: None at this time. 8. Activities: Soft cart activities, television and other activities at RN discretion. 9. Bathroom privileges with escort in the ED, available in room without limitation on M/S. 10. Phone: Limited to legal contacts at this time, via [facility] hospital phone and at RN discretion. 11. Due to INVOLUNTARY status, patient is being held at [facility] by the Department of Mental Health ([facility]). A 2nd certification by [facility] Psychiatrist which occurred on 12/25/21 upheld the involuntary status. Staff will provide de-escalation support (CPI) as needed. If patient wishes to leave [facility], staff will contact [facility] Crisis Screener ([phone]) and On-Call Answering Service Operator ([phone]) as soon as possible. In the event of elopement, notify [place] [employer] Police ([phone]). Patient is currently involuntarily at [facility]. [facility] Frontline Customer Account Specialist will co ntinue seeking placement. Please contact the Tourist Cabin Keeper Answering Service Operator ([phone]) for any needed changes to Safety Plan. Safety plan has been provided to interdepartmental care team. Patient will be transported by [facility] at time of discharge.
--- NOTE | 2022-01-04 15:41 | W.PM.PROGNOT ---
Date of Service Date of service: 01/04/22 Time of Service: 15:41 Assessment and Plan Assessment and plan (1) Acute psychosis: Status: Acute Assessment and plan: Has continued to refuse medications. Waiting for placement in medical psychiatric facility. no behavioral disturbances (2) Diabetes: Assessment and plan: Cont to offer Jardiance, Actos and metformin. However, he is not been taking his medications. Refusing fingerstick blood glucose monitoring, no evidence of DKA (vomiting, abd pain, tachypne, etc) Per record of discussion yesterday with legal, if medical judgment indicates his health could be threatened by escalating glucose levels (his assessment shows acute signs/symptoms) a fingerstick glucose or lab draw can be obtained after haldol and diphenhydramine given as a restraint. (3) Schizophrenia: Assessment and plan: non compliant with medication As above. (4) Non-compliance: Status: Acute Assessment and plan: Refusing glucose monitoring and medications. Significant concern that he could develop DKA given hospitalization on 12/08/21 for DKA Given the morbidity and mortality associated with DKA, there is a serious concern for his health and well-being by his noncompliance with medications and monitoring his blood glucose. A conversation was had yesterday with Holden Fuller, commercial litigation attorney for [facility]. He explained that if the patients health is at serious risk if monitoring or medication is not given, then an emergency involuntary medication or chemical restraint can be utilized, otherwise not to be used for routine med administration. discussed with DR Valles Subjective Subjective Interval history since last seen: continues to be non compliant with medical therapy and medications. no other behavioral disturbances. eating and drinking well and medically stable. Exam Const General: No well groomed (unkempt) and disheveled Nutritional Appearance: overweight Orientation: alert and awake Limitations: other limitations (psychotic, manic) HENMT Head: normal to inspection Resp Effort & Inspection: normal respiratory effort Cardio Other: pink warm dry and well perfused Psych Speech and Movement: restless Mood: manic mood and paranoid Objective Last Vital Signs Temp 37.0 C 01/02/22 19:40 Pulse 69 01/02/22 19:40 Resp 20 01/02/22 19:40 BP 173/64 H 01/02/22 19:40 Pulse Ox 98 01/02/22 19:40 Laboratory Results - last 24 hr 01/03/22 01/04/22 15:15 05:35 WBC Cancelled RBC Cancelled Hgb Cancelled Hct Cancelled MCV Cancelled MCH Cancelled MCHC Cancelled RDW Cancelled Plt Count Cancelled MPV Cancelled Immature Gran % Cancelled Neutrophils % Cancelled Band Neutrophils % Cancelled Lymphocytes % Cancelled Atypical Lymphs % Cancelled Monocytes % Cancelled Eosinophils % Cancelled Basophils % Cancelled Metamyelocytes % Cancelled Myelocytes % Cancelled Promyelocytes % Cancelled Other Cells % Cancelled Nucleated RBC % Cancelled Absolute Neutrophils Cancelled Absolute Lymphocytes Cancelled Absolute Monocytes Cancelled Absolute Eosinophils Cancelled Absolute Basophils Cancelled RBC Morphology Cancelled Polychromasia Cancelled Hypochromasia Cancelled Poikilocytosis Cancelled Basophilic Stippling Cancelled Anisocytosis Cancelled Microcytosis Cancelled Macrocytosis Cancelled Spherocytes Cancelled Tear Drop Cells Cancelled Ovalocytes Cancelled Stomatocytes Cancelled [place] Bodies Cancelled Beattie Cells/Echinocytes Cancelled Acanthocytes (Spur) Cancelled Schistocytes Cancelled Sodium Cancelled Potassium Cancelled Chloride Cancelled Carbon Dioxide Cancelled Anion Gap Cancelled BUN Cancelled Creatinine Cancelled Est GFR (CKD-EPI 2020) Cancelled Glucose Cancelled Calcium Cancelled Total Bilirubin Cancelled AST Cancelled ALT Cancelled Alkaline Phosphatase Cancelled Total Protein Cancelled Albumin Cancelled
--- NOTE | 2022-01-05 07:11 | NUR.NOTE ---
Nursing Note: This RN worked with Juan Johns LPN yesterday (01/04/22) and reviewed all of the PATIENT INTAKE COORDINATOR's documentation and is in agreement with what was documented.
--- NOTE | 2022-01-05 15:53 | CMSP_ITS ---
- If Service Date Differs Date of service: 01/05/22 Time of Service: 15:53 Care Management Safety Plan Status: Involuntary - Reason for Wait Reason for Wait: Inpatient Admission Dwayne continues to refuse routine medical care and medications. No change to safety plan at this time. Safety plan has been established to meet the needs of the patient, and consideration of the care team, to adhere to patient goals, identify restrictions based on behavioral status, address nutrition, and determine allowed personal belongings, tools for hygiene and personal care. Determine level of activity including ambulation, level of supervision, visitors, and determine privileges based on behaviors and level of engagement by pt. SAFETY PLAN: 1. Will remain on SI/HI precautions. In Paper Clothes. 2. Will remain in room under direct supervision of one-on-one staff at all times provided by CPSO, POLY AREA SUPERVISOR, BRIEFCASE SEWER associate professor of literature. 3. May have paper cups, plates, finger foods as well as a cardboard spoon for meals. 4. Follow [facility] Management of the Admitted Behavioral Health Patient policy. 5. Comfort bath system only. 6. No personal belongings 7. Visitors: None at this time. 8. Activities: Soft cart activities, television and other activities at RN discretion. 9. Bathroom privileges with escort in the ED, available in room without limitation on M/S. 10. Phone: Limited to legal contacts at this time, via [facility] hospital phone and at RN discretion. 11. Due to INVOLUNTARY status, patient is being held at [facility] by the Department of Mental Health ([facility]). A 2nd certification by [facility] Psychiatrist which occurred on 12/25/21 upheld the involuntary status. Staff will provide de-escalation support (CPI) as needed. If patient wishes to leave [facility], staff will contact [facility] Crisis Screener ([phone]) and On-Call Trade Embalmer ([phone]) as soon as possible. In the event of elopement, notify [place] [employer] Police ([phone]). Patient is currently involuntarily at [facility]. [facility] Frontline Insole Doubler will co ntinue seeking placement. Please contact the Graphic Design Intern Trade Embalmer ([phone]) for any needed changes to Safety Plan. Safety plan has been provided to interdepartmental care team. Patient will be transported by [facility] at time of discharge.
--- NOTE | 2022-01-05 15:53 | PDOC.CMSAFE ---
- If Service Date Differs Date of service: 01/05/22 Time of Service: 15:53 Care Management Safety Plan Status: Involuntary - Reason for Wait Reason for Wait: Inpatient Admission Dwayne continues to refuse routine medical care and medications. No change to safety plan at this time. Safety plan has been established to meet the needs of the patient, and consideration of the care team, to adhere to patient goals, identify restrictions based on behavioral status, address nutrition, and determine allowed personal belongings, tools for hygiene and personal care. Determine level of activity including ambulation, level of supervision, visitors, and determine privileges based on behaviors and level of engagement by pt. SAFETY PLAN: 1. Will remain on SI/HI precautions. In Paper Clothes. 2. Will remain in room under direct supervision of one-on-one staff at all times provided by [employer], PUNCH PRESS FEEDER, HARVEST CREW SUPERVISOR lactation coordinator. 3. May have paper cups, plates, finger foods as well as a cardboard spoon for meals. 4. Follow [facility] Management of the Admitted Behavioral Health Patient policy. 5. Comfort bath system only. 6. No personal belongings 7. Visitors: None at this time. 8. Activities: Soft cart activities, television and other activities at RN discretion. 9. Bathroom privileges with escort in the ED, available in room without limitation on M/S. 10. Phone: Limited to legal contacts at this time, via [employer] hospital phone and at RN discretion. 11. Due to INVOLUNTARY status, patient is being held at [facility] by the Department of Mental Health ([facility]). A 2nd certification by [facility] Psychiatrist which occurred on 12/25/21 upheld the involuntary status. Staff will provide de-escalation support (CPI) as needed. If patient wishes to leave [facility], staff will contact [facility] Crisis Screener ([phone]) and On-Call Convict Guard ([phone]) as soon as possible. In the event of elopement, notify [place] [employer] Police ([phone]). Patient is currently involuntarily at [facility]. [facility] Frontline Body Specialist will continue seeking placement. Please contact the Faculty Instructor Convict Guard ([phone]) for any needed changes to Safety Plan. Safety plan has been provided to interdepartmental care team. Patient will be transported by [employer] at time of discharge.
--- NOTE | 2022-01-05 15:54 | CMPROGNOTE_ITS ---
- If Service Date Differs Date of service: 01/05/22 Time of Service: 15:54 Care Management Progress Note S/O: CM met with ALEX Rivera CRT this morning, who stated that Dwayne continues to refuse evaluation. She stated that he is presenting more calm today. She continues to recommend that there should be limited stimuli for Dwayne, as he appears to escalate with more people interacting with him. CM did not visit with him today. CM provided updated documentation to Nicole, who sent it to [facility], who is considering him for admission. [facility] continues to put pressure on facilities to get Dwayne the care he needs. CM will continue to follow. A: Dwayne is a 51 year old male who presents in the ED for a psychiatric evaluation. P: Referrals [facility] been [facility] to [facility], [facility], [facility], and [facility] for review. [place] and [place] have declined to admit Dwayne. [place] ia reportedly only accepting patients from their own hospital. [facility] is not accepting admissions today. Dwayne will remain at [facility] and will be reassessed twice daily by [facility] CABINET FINISHER until a placement is secured for him. A 2nd Certification by Psychiatrist occurred on 12/25/21 and upheld the involuntary status. CM will continue to follow.
--- NOTE | 2022-01-05 15:54 | PDOC.CMPRO ---
- If Service Date Differs Date of service: 01/05/22 Time of Service: 15:54 Care Management Progress Note S/O: CM met with ALEX Rivera SALES SUPPORT ASSOCIATE this morning, who stated that Dwayne continues to refuse evaluation. She stated that he is presenting more calm today. She continues to recommend that there should be limited stimuli for Dwayne, as he appears to escalate with more people interacting with him. CM did not visit with him today. CM provided updated documentation to Nicole, who sent it to [facility], who is considering him for admission. [facility] continues to put pressure on facilities to get Dwayne the care he needs. CM will continue to follow. A: Dwayne is a 51 year old male who presents in the ED for a psychiatric evaluation. P: Referrals have been sent to [facility], [facility], [facility], and [facility] for review. [place] and [place] have declined to admit Dwayne. [place] ia reportedly only accepting patients from their own hospital. [facility] is not accepting admissions today. Dwayne will remain at [facility] and will be reassessed twice daily by [facility] SALES SUPPORT ASSOCIATE until a placement is secured for him. A 2nd Certification by Psychiatrist occurred on 12/25/21 and upheld the involuntary status. CM will continue to follow.
--- NOTE | 2022-01-05 17:10 | PGE_ITS ---
Date of Service Date of service: 01/05/22 Time of Service: 17:10 Assessment and Plan Assessment and plan (1) Acute psychosis: Status: Acute Assessment and plan: Has continued to refuse medications. Waiting for placement in medical psychiatric facility. no aggressive or threatening behavioral disturbances (2) Diabetes: Assessment and plan: Cont to offer Jardiance, Actos and metformin and encourage glucose monitoring. unfortunately if he refuses treatment for hyperglycemia checking glucose by fingerstick is unhelpful. No evidence of DKA (vomiting, abd pain, tachypne, etc) but will continue to monitor. Per record of discussion yesterday with legal, if medical judgment indicates his health could be threatened by escalating glucose levels (his assessment shows acute signs/symptoms) a fingerstick glucose or lab draw can be obtained after haldol and diphenhydramine given as a restraint. (3) Schizophrenia: Assessment and plan: non compliant with medication As above. (4) Non-compliance: Status: Acute Assessment and plan: ongoing issue. will likely not change until his acute psychiatric decompensation addressed. Unfortunately that is out of our hands at this time after a conversation with Holden Fuller, state's attorney for [facility]. He explained that if the patients health is at serious risk if monitoring or medication is not given, then an emergency involuntary medication or chemical restraint can be utilized, otherwise not to be used for routine med administration. continue to push for emergent inpatient psychiatric management to avoid medical complications. discussed with DR Valles Subjective Subjective Patient reports: no new complaints Exam Const General: No well groomed (unkempt) and disheveled Nutritional Appearance: overweight Orientation: alert and awake Limitations: other limitations (psychotic, manic) [facility] Head: normal to inspection Resp Effort & Inspection: normal respiratory effort Cardio Other: pink warm dry and well perfused Psych Speech and Movement: restless Mood: manic mood and paranoid Objective Last Vital Signs Temp 37.0 C 01/02/22 19:40 Pulse 69 01/02/22 19:40 Resp 20 01/02/22 19:40 BP 173/64 H 01/02/22 19:40 Pulse Ox 98 01/02/22 19:40
--- NOTE | 2022-01-05 18:09 | NUR.NOTE ---
Nursing Note: This RN worked with Juan Johns LPN today (01/05/22) and reviewed all of the [employer]'s documentation and is in agreement with what was documented.
--- NOTE | 2022-01-06 09:29 | CMSP_ITS ---
- If Service Date Differs Date of service: 01/06/22 Time of Service: 09:29 Care Management Safety Plan Status: Involuntary - Reason for Wait Reason for Wait: Inpatient Admission Dwayne continues to refuse routine medical care and medications. No change to safety plan at this time. Safety plan has been established to meet the needs of the patient, and consideration of the care team, to adhere to patient goals, identify restrictions based on behavioral status, address nutrition, and determine allowed personal belongings, tools for hygiene and personal care. Determine level of activity including ambulation, level of supervision, visitors, and determine privileges based on behaviors and level of engagement by pt. SAFETY PLAN: 1. Will remain on SI/HI precautions. In Paper Clothes. 2. Will remain in room under direct supervision of one-on-one staff at all times provided by CPSO, HOTEL VALET ATTENDANT, HR INTERNSHIP forestry biology specialist. 3. May have paper cups, plates, finger foods as well as a cardboard spoon for meals. 4. Follow [facility] Management of the Admitted Behavioral Health Patient policy. 5. Comfort bath system only. 6. No personal belongings 7. Visitors: None at this time. 8. Activities: Soft cart activities, television and other activities at RN discretion. 9. Bathroom privileges with escort in the ED, available in room without limitation on M/S. 10. Phone: Limited to legal contacts at this time, via [employer] hospital phone and at RN discretion. 11. Due to INVOLUNTARY status, patient is being held at [facility] by the Department of Mental Health ([facility]). A 2nd certification by [facility] Psychiatrist which occurred on 12/25/21 upheld the involuntary status. Staff will provide de-escalation support (CPI) as needed. If patient wishes to leave [facility], staff will contact [facility] Crisis Screener ([phone]) and On-Call Destination Sign Repairer ([phone]) as soon as possible. In the event of elopement, notify [place] [employer] Police ([phone]). Patient is currently involuntarily at [facility]. [facility] Frontline Bobcat Operator will c ontinue seeking placement. Please contact the Workers Compensation Claims Analyst Destination Sign Repairer ([phone]) for any needed changes to Safety Plan. Safety plan has been provided to interdepartmental care team. [facility] at time of discharge.
--- NOTE | 2022-01-06 09:29 | PDOC.CMSAFE ---
- If Service Date Differs Date of service: 01/06/22 Time of Service: 09:29 Care Management Safety Plan Status: Involuntary - Reason for Wait Reason for Wait: Inpatient Admission Dwayne continues to refuse routine medical care and medications. No change to safety plan at this time. Safety plan has been established to meet the needs of the patient, and consideration of the care team, to adhere to patient goals, identify restrictions based on behavioral status, address nutrition, and determine allowed personal belongings, tools for hygiene and personal care. Determine level of activity including ambulation, level of supervision, visitors, and determine privileges based on behaviors and level of engagement by pt. SAFETY PLAN: 1. Will remain on SI/HI precautions. In Paper Clothes. 2. Will remain in room under direct supervision of one-on-one staff at all times provided by CPSO, MANAGER SALES TRAINING, INCOME TAX CONSULTANT performance test architect. 3. May have paper cups, plates, finger foods as well as a cardboard spoon for meals. 4. Follow [facility] Management of the Admitted Behavioral Health Patient policy. 5. Comfort bath system only. 6. No personal belongings 7. Visitors: None at this time. 8. Activities: Soft cart activities, television and other activities at RN discretion. 9. Bathroom privileges with escort in the ED, available in room without limitation on M/S. 10. Phone: Limited to legal contacts at this time, via [employer] hospital phone and at RN discretion. 11. Due to INVOLUNTARY status, patient is being held at [facility] by the Department of Mental Health ([facility]). A 2nd certification by [facility] Psychiatrist which occurred on 12/25/21 upheld the involuntary status. Staff will provide de-escalation support (CPI) as needed. If patient wishes to leave [facility], staff will contact [facility] Crisis Screener ([phone]) and On-Call Systems Checkout Mechanic ([phone]) as soon as possible. In the event of elopement, notify [place] [employer] Police ([phone]). Patient is currently involuntarily at [facility]. [facility] Frontline Feller Hand will continue seeking placement. Please contact the Instructor Weaving Systems Checkout Mechanic ([phone]) for any needed changes to Safety Plan. Safety plan has been provided to interdepartmental care team. Patient will be transported by [employer] at time of discharge.
--- NOTE | 2022-01-06 09:29 | PDOC.CMPRO ---
- If Service Date Differs Date of service: 01/06/22 Time of Service: 09:29 Care Management Progress Note S/O: Dwayne has been in fairly good spirits today, although he is still refusing to take his medication. was notified this morning that he has a bed at [facility], however transport was not able to be secured, so he will likely remain at [facility] until tomorrow. CM continues to follow. A: Dwayne is a 51 year old male who presents in the ED for a psychiatric evaluation. P: [facility] contacted [facility] today and informed them that they will have a bed for Dwayne today. Unfortunately they were unable to secure transport so he will likely not go until tomorrow. - Status Status: Involuntary - Reason for Wait Reason for Wait: Inpatient Admission
--- NOTE | 2022-01-06 13:27 | DSE_ITS ---
Date of service: 01/06/22 Time of Service: 13:28 DS: Diagnosis Discharge Diagnosis (1) Acute psychosis: Status: Acute (2) Diabetes: (3) Schizophrenia: (4) Non-compliance: Status: Acute Discharge Plan Disposition Patient Disposition: [facility] Condition: Stable Discharge Details Reason For Visit: Schizophrenia with Paranoia Admit Date/Time: 12/29/21 10:15 Admit Provider: Margarito Rao Attending Provider: Margarito Rao Primary Care Provider: Katy Brooks [facility] Hospital Course: This is a 51 yo male with a history of schizophrenia, type 2 diabetes mellitus who was admitted to [facility] on 12/08/21 for diabetic ketoacidosis, stabilized and discharged on 12/17/21.? He had been medication compliant with no behavioral issues and his diabetes well managed. He presented back to the ED by police after a warrant was issued for his to be brought in for a mental health and medical evaluation.? He had been exhibiting escalating aggressive behaviors with homicidal threats, delusions and hallucinations.? He required chemical restraints upon arrival to allow for an evaluation and for his and staffs safety.? Mental health evaluated patient and recommended continuing hospitalization with a second cert by psychiatrist to be arranged. Referrals sent to facilities with inpatient medical and psychiatric care beds were at capability so he remained in the our ED until transfer to the transition unit as no psychiatric beds had opened. Since being on med/surg he continued to be non compliant with all oral medication, psychiatric and medical. he had no aggressive or behavioral issues requiring chemical sedation. He remained medically stable, with no symptoms of diabetic ketoacidosis. one random blood sugar check was permitted by the patient and he was 215. he was eating and drinking and bowels and bladder functioning well. A bed has become available at [facility] and he is being transported by ground transport. discussed with Dr Valles Home Meds and New Rx's Prescriptions: Continued aripiprazole 30 mg tablet 1 tab PO QAM Vraylar 6 mg capsule 1 cap PO HS diazepam 5 mg tablet 5 mg PO DAILY Jardiance 25 mg Tablet 25 mg PO QAM Qty: 30 0RF metformin 1,000 mg tablet 1,000 mg PO BID Qty: 60 0RF (DME) blood-glucose meter [OneTouch Ultra2 Meter] Kit See Rx Instructions .Route Qty: 1 0RF Rx Instructions: BID glucose monitoring (DME) OneTouch Ultra Test Strip See Rx Instructions .Route Qty: 100 0RF Rx Instructions: BID glucose monitoring (DME) lancets [Lancets,Ultra Thin] Misc See Rx Instructions .Route Qty: 100 0RF Rx Instructions: TID glucose monitoring (DME) lancets [OneTouch UltraSoft Lancets] Misc See Rx Instructions .Route Qty: 100 0RF Rx Instructions: BID glucose monitoring quetiapine 100 mg tablet 100 mg PO HS Probiotic 100 billion cell Capsule 1 cap PO DAILY aspirin 81 mg Tablet,Delayed Release (Dr/Ec) 81 mg PO DAILY atorvastatin 10 mg tablet 20 mg PO DAILY lisinopril 10 mg tablet 10 mg PO DAILY metoprolol succinate 50 mg Tablet Extended Release 24 Hr 50 mg PO DAILY olanzapine 10 mg Tablet 10 mg PO HS Discharge Instructions Instructions: Diabetic Hyperglycemia (DC), Psychotic Disorder (DC), Type 2 Diabetes Management for Adults (DC) Referrals: Katy Brooks [Primary Care Provider] - (on discharge from inpatient psychiatric hospitalization) Activity:: Activity as Tolerated Equipment/Supplies:: No Equipment Needed Diet:: Carb Counting Discharge Orders Discharge Orders: Discharge Order (Routine); Ordered 01/06/22 Ordered By: Lanie Duncan DS: Summary Time Spent with Patient providing and/or coordinating discharge services: Greater than 30 minutes Status at Discharge Functional status at discharge: independent ambulation Overall status at discharge: patient is not back to baseline Mental Status: other (disheveled) Speech and Movement: restless Mood: manic mood, paranoid and other (disheveled) Affect: labile affect Exam Const General: No well groomed (unkempt) and disheveled Nutritional Appearance: overweight Orientation: alert and awake Limitations: other limitations (psychotic, manic) [facility] Head: normal to inspection Resp Effort & Inspection: normal respiratory effort Cardio Other: pink warm dry and well perfused Psych Mental Status: other (disheveled) Speech and Movement: restless Mood: manic mood, paranoid and other (disheveled) Affect: labile affect DS: Data Vitals/I&O Vitals and I&O: Vital Signs Temperature 37.0 C 01/02/22 19:40 Temperature Source Tympanic 01/02/22 19:40 Pulse 69 01/02/22 19:40 Pulse 88 12/25/21 06:50 Respiratory Rate 20 01/02/22 19:40 Respiratory Effort 01/06/22 05:23 Respiratory Depth Normal 01/06/22 05:23 Respiratory Pattern Normal 01/06/22 05:23 Blood Pressure 173/64 H 01/02/22 19:40 Pulse Oximetry 98 01/02/22 19:40 Oxygen Delivery Method Nasal Cannula 01/02/22 19:40 Oxygen Flow Rate 2 01/02/22 19:40 Pain Level 0 01/05/22 15:21 Comment 01/05/22 15:21 Intake & Output 01/05/22 01/06/22 01/06/22 23:59 11:59 23:59 Intake Total 800 / 800 Balance 800 / 800 Intake: Oral 800 / 800 Other: Urine Color Yellow Urine Appearance Clear Comment Pt. has been up to the bathroom independently throughout the day thus far. Voiding Methods Toilet Toilet PFSH All Active Problems (Updated 01/03/22 @ 17:30 by Margarito Rao MD) Non-compliance (Acute) Acute psychosis (Acute) Medical History (Updated 01/03/22 @ 17:30 by Margarito Rao MD) Diabetes Morbid obesity Schizophrenia Social History Smoking/Tobacco Use Status: Never Smoking risk assessment performed?: Yes Alcohol Intake: current Substance use type: does not use Additional Social history: pt not speaking at this time
--- NOTE | 2022-01-07 12:13 | CMDISCH_ITS ---
- If Service Date Differs Date of service: 01/07/22 Time of Service: 12:13 Care Management Discharge Reason for Hospitalization: acute psychosis Discharge Plan: [facility]. He will transport via private transportation service coordinated by the Department of Mental health. - MH Services (Omit if N/A) Current MH Services: STATION AGENT - Disposition Disposition: [place] Transport via of: Other
== END 2022-01-07 09:25 | disposition short-term general hospital (02) | DRG 885 ==
LOC: ER 12-29 10:38 → MS 12-29 11:26
PROVIDERS: Emergency Medicine; Admitting Provider Family Medicine; Emergency Provider Physician Assistant; PCP Nurse Practitioner Family; Visit Provider Family Medicine
DX: F20.9 Schizophrenia, unspecified (principal); R45.850 Homicidal ideations; E11.9 Type 2 diabetes mellitus without complications; E66.9 Obesity, unspecified; Z79.84 Long term (current) use of oral hypoglycemic drugs; Z79.899 Other long term (current) drug therapy; Z79.4 Long term (current) use of insulin; Z91.14 Patient's other noncompliance with medication regimen; Z91.128 Patient's intentional underdosing of medication regimen for other reason
CPT/HCPCS: 80053; 80307; 82805; 83690; 87635; 96361; 96372; 96374; 96375; 99285; 80320; 80329; 81003; 84443; 84484; 85025; 99222; 99231; 99232; 99233; 99239; J1200; J1630; J3490